=== PATIENT | male | born 1945 | race Caucasian/White ===

== ENCOUNTER 2024-06-24 10:52 | Outpatient (OUT) | payer MEDICARE, SELFPAY ==
[2024-06-24 11:46] LABS: Bilirubin Urine NEGATIVE (NEGATIVE); Blood Urine NEGATIVE (NEGATIVE); Clarity Urine CLOUDY (CLEAR); Color Urine LT. YELLOW (YELLOW); Glucose Urine UA NEGATIVE (NEGATIVE); Ketones Urine NEGATIVE (NEGATIVE); Leukocyte Esterase Urine TRACE (NEGATIVE); Nitrite Urine NEGATIVE (NEGATIVE); Protein Urine >=300 mg/dL (NEG/TRACE); Specific Gravity Urine >=1.030 (1.005-1.025)
[2024-06-24 12:07] LABS: Percent Iron Saturation 22.1 %
[2024-06-24 12:25] LABS: Albumin Level 3.3 g/dL (3.4-5.0); Anion Gap 10.8; BUN Creatinine Ratio 15.7; Calcium 9.2 mg/dL (8.5-10.1); Carbon Dioxide 28.4 mmol/L (21.0-32.0); Chloride 102 mmol/L (98-107); Estimated GFR (African America >60 (>=60 mL/min/1.73m^2); Estimated GFR (Non-African Ame 52 (>=60 mL/min/1.73m^2); Glucose 193 mg/dL (74-106); Magnesium 1.8 mg/dL (1.8-2.4); Phosphorus 3.9 mg/dL (2.6-4.7); Potassium 4.2 mmol/L (3.5-5.1); Sodium 137 mmol/L (136-145); Uric Acid 2.9 mg/dL (3.5-7.2)
[2024-06-25 02:09] LABS: Vitamin B12 >2000 pg/mL (232-1245)
[2024-06-25 09:12] LABS: PTH, Intact 49 pg/mL (15-65)
[2024-06-26 17:10] LABS: Immunoglobulin A, Qn, Serum 214 mg/dL (61-437); Immunoglobulin G, Qn, Serum 477 mg/dL (603-1613); Immunoglobulin M, Qn, Serum 81 mg/dL (15-143)
== END 2024-06-24 10:53 | disposition home or self-care (01) ==
LOC: LAB 10:57
PROVIDERS: PCP Family Medicine; Visit Provider Internal Medicine Nephrology
DX: D64.9 Anemia, unspecified (principal); I12.9 Hypertensive chronic kidney disease with stage 1 through stage 4 chronic kidney disease, or unspecified chronic kidney disease; R80.1 Persistent proteinuria, unspecified; N18.2 Chronic kidney disease, stage 2 (mild); E11.21 Type 2 diabetes mellitus with diabetic nephropathy
CPT/HCPCS: 36415; 80069; 81003; 82607; 82728; 82746; 83521; 83540; 83550; 83735; 83970; 84156; 84166; 84550; 86335

== ENCOUNTER 2024-06-26 08:30 | Outpatient (OUT) | payer MEDICARE, SELFPAY ==
--- NOTE | 2024-06-26 08:34 | US_ITS ---
The [address] [address] Patient Name: NATALIO BELLA MRN: [id number] date: 1945 Sex: M Assigned Patient Location: US Current Patient Location: LAB Accession/Order Number: [id number] Exam Date: 06/26/2024 09:11 Report Date: 06/26/2024 09:17 At the request of: MENDEZ FU Procedure: US renal BI BILATERAL RENAL AND BLADDER ULTRASOUND CLINICAL HISTORY: Hypertensive Renal Disease, Stage 2 Renal Disease, Proteinuria COMPARISON: None Estimation of renal size is approximately 10.1 cm on the right and 9.2 cm on the left. No shadowing calculi or hydronephrosis are identified. No renal mass lesions were imaged. There is no perinephric fluid. The urinary bladder is partially distended with a volume of 141 mL. The bladder wall appears thickened with a more focal lobulated component toward the trigone on the right. This area is approximately 2.8 x 1.1 x 1.5 cm in size. There is a prominent, heterogeneous prostate measuring 4.6 x 3.8 x 4.8 cm in size (volume 43 mL). US/US renal BI IMPRESSION: NO OBSTRUCTIVE UROPATHY. PROSTATE HYPERTROPHY. THICKENED URINARY BLADDER WALL WITH A FOCAL MASSLIKE AREA TOWARD THE BASE ON THE RIGHT. CLINICAL CORRELATION AND FOLLOW-UP ARE RECOMMENDED TO EXCLUDE ANY POSSIBILITY OF NEOPLASM. Impression dictated by: Alyse Beth M.D.06/26/2024 9:17 AM Dictation Location: [place] [address] Electronically authenticated by: [id number] Y Date: 06/26/2024 09:17
== END 2024-06-26 08:31 | disposition home or self-care (01) ==
LOC: US 08:30
PROVIDERS: PCP Family Medicine; Visit Provider Internal Medicine Nephrology
DX: D64.9 Anemia, unspecified (principal); I12.9 Hypertensive chronic kidney disease with stage 1 through stage 4 chronic kidney disease, or unspecified chronic kidney disease; R80.1 Persistent proteinuria, unspecified; N18.2 Chronic kidney disease, stage 2 (mild); E11.21 Type 2 diabetes mellitus with diabetic nephropathy; N40.0 Benign prostatic hyperplasia without lower urinary tract symptoms
CPT/HCPCS: 76775

== ENCOUNTER 2024-06-26 08:47 | Outpatient (REF) | payer MEDICARE, SELFPAY | END 2024-06-26 08:48 | disposition home or self-care (01) | LOC: LAB 08:47 | PROVIDERS: PCP Family Medicine; Visit Provider Internal Medicine Nephrology | DX: D64.9 Anemia, unspecified (principal); I12.9 Hypertensive chronic kidney disease with stage 1 through stage 4 chronic kidney disease, or unspecified chronic kidney disease; R80.1 Persistent proteinuria, unspecified; N18.2 Chronic kidney disease, stage 2 (mild); E11.21 Type 2 diabetes mellitus with diabetic nephropathy | CPT/HCPCS: 36415; 84156; 84166 ==

== ENCOUNTER 2024-09-09 09:02 | Outpatient (OUT) | payer MEDICARE, SELFPAY ==
--- OUTSIDE RECORDS SUMMARY | 2024-02-01 07:00 | XMS_ITS | Encounter Summary ---
Author Name [facility] [place] [facility] [place] [facility] [place] Address [address] [place] [address] Care Team Providers Care Microwave Oven Assembler Name Role Phone ADENIKE MILLER Primary Care Provider Unavail able Insurance Providers: All historical and current Section Date Range: From patient's date of to the date document was created. This section includes the names of all active insurance providers for the patient. Insurance Provider Type of Coverage Plan Name Start of Policy Coverage End of Policy Coverage Group Number Member ID Insurance Provider's Telephone Number Policy Elias's Name Patient's Relationship to Policy Elias [facility] (WNR) MEDICARE ADVANTAGE [facility] ([facility]) Apr 16, 2017 [id number] NATALIO RUSSELL PATIENT [facility] ([facility]) MEDICARE ADVANTAGE [facility] ([facility]) Nov 15, 2011 [id number] NATALIO RUSSELL PATIENT Selected Encounter This section includes the information on record at [place] for the Encounter. Date/Time Encounter Type Encounter Description Reason Provider Source Feb 01, 2024 11:00 AM BRIEF EMOTIONAL/BEHAV ASSMT AUDIOLOGY ICD-10-CM H90.A32 Mix cndct/snrl hear loss,uni,l ear w rstrcd hear cntra MACKENZIE Lopez IHYefri Encounter Template Text not used by [facility] Assessments - Encounter Diagnoses This section includes the primary and secondary diagnoses documented for the Encounter. Date/Time Primary/Secondary Diagnosis Diagnosis Name Provider Source Feb 01, 2024 12:05 PM PRIMARY Mix cndct/snrl hear loss,uni,l ear w rstrcd hear cntra side [place]ENZIE REDDY [facility] [place] of Treatment: Future Appointments (+ 6 months) and Future Tests (+/- 45 days) The Plan of Treatment section includes future care activities for the patient from all [place] treatmentfacilities. This section includes future appointments and future orders which are active, pending or scheduled. Future Appointments This section includes appointments that were scheduled to occur 6 months from the date of the Encounter, up to a maximum of 20 appointments. The data comes from all [place] treatment facilities. Appointment Date/Time Appointment Type Appointme nt Facility Name Feb 13, 2024 08:30 AM AMBULATORY - NONE [facility] Apr 03, 2024 10:30 AM AMBULATORY NONE [facility] Apr 22, 2024 10:00 AM AMBULATORY NONE [facility] Encounter Notes: All associated encounter notes This section contains the clinical notes associated to the Encounter. Date/Time Encounter Note(s) Provider Source Feb 01, 2024 11:38 AM AUDIOLOGY NOTE: LOCAL TITLE: AUDIOLOGY ASSESSMENT (T) STANDARD TITLE: AUDIOLOGY NOTE DATE OF NOTE: FEB 01, 2024@11:38 ENTRY DATE: FEB 01, 2024@11:38:28 AUTHOR: MACKENZIE REDDY EXP COSIGNER: URGENCY: STATUS: COMPLETED COMPLAINTS ASSOCIATED WITH HEARING OR EARS: CHIEF COMPLAINT: is new to audiology and being seen today for a hearing evaluation. Mr. Russell was last seen for a C&P exam in 2020. He has worn private- purchased hearing aids before in the past but does not have them today. He reports being interested in hearing aids through the [place]. 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 Left: Hearing sensitivity is mixed moderate sloping to profound at 250-8000 Hz. SPEECH RECOGNITION SCORES: Word list [place] CNC-50 presented through recorded material. Right ear 92% at 75 dBHL presented using recorded material Left ear 84% at 90 dBHL presented using recorded material, masked IMMITTANCE RESULTS: TYMPANOGRAM: Right Normal middle ear compliance and peak pressure. Left Flat tympanogram with no measureable pressure or compliance. ACOUSTIC REFLEXES: Ipsilateral Right Present at elevated sensation levels. Absent at presentation levels. Left Could not obtain a seal for testing. PREVIOUS TEST RESULTS: Right: Results are stable with those obtained in 202. Left: Pure tone thresholds have declined compared with those in 202 but this is likely due to the cerumen buildup in the left ear. RECOMMENDATIONS: Hearing Aid(s): Ordered binaural hearing aids - ([place]) Phonak AUDEO L90-RL SHARMIN with size 3xM receivers and small vented domes - No Bluetooth needed. - declined VVC, prefers in-person appointment. Per [place] preference, hearing aid fitting: Scheduled for [facility] audiology unit RTC for [facility] NURSE to have ears lavaged. [place] and his were given Debrox and will start using immediately. Consider pure tone recheck for left ear when returns for fitting. *Annual C-SSRS completed during today's appointment. /annette/ MACKENZIE REDDY CAFE ASSOCIATE Signed: 02/01/2024 12:06 MACKENZIE REDDY [facility]
--- OUTSIDE RECORDS SUMMARY | 2024-02-13 04:30 | XMS_ITS | Encounter Summary ---
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 Date/Time Encounter Type Encounter Description Reason Provider Source Feb 13, 2024 08:30 AM OFF/OP EST AUGUST X REQ PHY/QHP PRIMARY CARE/MEDICINE ICD-10-CM Z23 Encounter for immunization VIOLETTA BARFIELD IHYefri Encounter Template Text not used by VA Assessments - Encounter Diagnoses This section includes the primary and secondary diagnoses documented for the Encounter. Date/Time Primary/Secondary Diagnosis Diagnosis Name Provider Source Feb 15, 2024 02:56 PM PRIMARY Encounter for immunization VIOLETTA BARFIELD [facility] Plan of Treatment: Future Appointments (+ 6 months) and Future Tests (+/- 45 days) The Plan of Treatment section includes [facility] care [facility] the [facility] [place] [facility] This section includes future appointments and future orders which are active, pending or scheduled. Future Appointments This section includes appointments that were scheduled to occur 6 months from the date of the Encounter, up to a maximum of 20 appointments. The data comes from all [place] treatment facilities. Appointment Date/Time Appointment Type Appointme nt Facility Name Apr 03, 2024 10:30 AM AMBULATORY - NONE [facility] Apr 22, 2024 10:00 AM AMBULATORY - NONE [facility] Immunizations: All administered on the encounter date This section contains immunizations associated to the Encounter. Immunization Series Date Issued Administered By Site Reaction Lot Number [id number] Code Drug Hospital Medical Assistant Comment(s) Source INFLUENZA, HIGH-DOSE, TRIVALENT, PF Feb 13, 2024 VIOLETTA BARFIELD LEFT DELTO ID [id number] 135 SANOFI PASTEUR ADMINISTERE D AT [place], [place] [facility] Encounter Notes: All associated encounter notes This section contains the clinical notes associated to the Encounter. Date/Time Encounter Note(s) Provider Source Feb 13, 2024 09:15 AM PRIMARY CARE NURSI NG NOTE: LOCAL TITLE: OUTPATIENT NURSING TRIAGE NOTE (T) STANDARD TITLE: PRIMARY CARE NURSING NOTE DATE OF NOTE: FEB 13, 2024@09:15 ENTRY DATE: FEB 13, 2024@09:15:36 AUTHOR: SKYE BARFIELDY Rene EXP COSIGNER: URGENCY: STATUS: COMPLETED Per 02/01/2024 Audiology Assessment Note: PREVIOUS TEST RESULTS: Right: Results are stable with those obtained in 2020. Left: Pure tone thresholds have declined compared with those in 2020 but this is likely due to the cerumen buildup in the left ear. RECOMMENDATIONS: Hearing Aid(s): Ordered binaural hearing aids - ([place]) Phonak AUDEO L90-RL SHARMIN with size 3xM receivers and small vented domes - No Bluetooth needed. - [place] declined VVC, prefers in-person appointment. Per preference, hearing aid fitting: Scheduled for [facility] unit RTC for [facility] NURSE to have ears lavaged. and his were given Debrox and will start using immediately. Consider pure tone recheck for left ear when returns for fitting. Patient in clinic for ear lavage- reports using Debrox daily- I can hear better after using the drops - left ear canal free of cerumen- ear drum visible. Instructed patient to schedule a recheck pure tone appt with Audiology- patient verbally agreed. /annette/ VIOLETTA BARFIELD REGISTERED NURSE Signed: 02/13/2024 09:28 Receipt Acknowledged By: 02/13/2024 12:08 /annette/ MACKENZIE REDDY LANDSCAPE AND YARDWORK LABORER VIOLETTA BARFIELD [facility] Feb 13, 2024 09:11 AM NURSING MEDICATION MGT NOTE: LOCAL TITLE: MEDICATION ADMINISTRATION NOTE (T) STANDARD TITLE: NURSING MEDICATION MGT NOTE DATE OF NOTE: FEB 13, 2024@09:11 ENTRY DATE: FEB 13, 2024@09:11:32 AUTHOR: VIOLETTA BARFIELD EXP COSIGNER: URGENCY: STATUS: COMPLETED Influenza Vaccine Influenza, High-Dose, Trivalent, Preservative Free (Fluzone-Syringe) Administered: INFLUENZA, HIGH-DOSE, TRIVALENT, PF Date Administered: Feb 13, 2024 08:30 Hospital Medical Assistant: SANOFI PASTEUR Lot: [id number] Exp Date: Oct 13, 2024 [facility]: [phone] Admin Route/Site: INTRAMUSCULAR/LEFT DELTOID Dosage: 0.5mL Vaccine Information Statement(s): INFLUENZA(FLU) VACC(INACTIVATED OR RECOMBINANT)VIS Nov 19, 2020 (LITHUANIAN) Order By: Policy Administered By: Violteta Barfield The Influenza Vaccine Information Statement (VIS) was reviewed with the patient/caregiver which lists the benefits and risks of the vaccine and the risks of not receiving the Influenza vaccine. The patient/caregiver denied any prior severe reaction to this vaccine or its components or a severe allergic reaction, such as anaphylaxis, to any vaccine or any injectable therapy. The patient/caregiver gave verbal consent to receive the vaccine. /annette/ VIOLETTA BARFIELD REGISTERED NURSE Signed: 02/13/2024 09:14 VIOLETTA BARFIELD [facility]
--- OUTSIDE RECORDS SUMMARY | 2024-04-22 06:00 | XMS_ITS | Encounter Summary ---
Author Name [facility] [place] Address [address] [place] [address] Care Team Providers Care Manager Name Role Phone ADENIKE MILLER Primary Care [...] Elias's Name Patient's Relationship to Policy Elias [facility] (WNR) MEDICARE ADVANTAGE [facility] ([facility]) Apr 16, 2017 [id number] NATALIO BELLA PATIENT [facility] (WNR) MEDICARE ADVANTAGE [facility] ([facility]) Nov 15, 2011 [id number] NATALIO BELLA PATIENT Selected Encounter This section includes the information on record at [place] for the Encounter. Date/Time Encounter Type Encounter Description Reason Pro vider Source Apr 22, 2024 10:00 AM Outpatient Encounter AUDIOLOGY IHE Encounter Template Text not used by [facility] Encounter Notes: All associated encounter notes This section contains the clinical notes associated to the Encounter. Date/Time Encounter Note(s) Provider Source Apr 22, 2024 11:34 AM NO SHOW NOTE: LOCAL TITLE: NO SHOW (T)// NO SHOW/CANCELLATION NOTE STANDARD TITLE: NO SHOW NOTE DATE OF NOTE: APR 22, 2024@11:34 ENTRY DATE: APR 22, 2024@11:34:55 AUTHOR: MILA WINSTON EXP COSIGNER: URGENCY: STATUS: COMPLETED did not keep scheduled appointment. /annette/ MILA WINSTON RUBBER WASHER Signed: 04/22/2024 11:35 [facility]
--- OUTSIDE RECORDS SUMMARY | 2024-08-13 02:42 | XMS_ITS | Continuity of Care Document ---
Author Name [facility] Care Team Providers Care Video Editing Internship Name Role Phone [facility] Unavailable Unavailable Problems Combined list of problems from Department of Defense and [facility] Affairs facilities. It does not include entries that were removed or entered in error. Problem Status Onset Date Problem Type Date of Resolution Comments Source Alcohol dependence Active Condition [facility] Astigmatism, regular (ICD-9-CM 367.21) Active Condition [facility] Asymmetrical sensorineural hearing loss (SNOMED CT 396867845) Active Condition [facility] Bilateral age-related nuclear cataracts (SNOMED CT 904989445221797) Active Condition [facility] Bilateral senile combined form cataracts of eyes Active Condition [facility] Diabetes mellitus Active Condition [facility] Disability Examination Active Condition [facility] Epiretinal membrane (SNOMED CT 706360155) Active Condition [facility] Essential hypertension Active Condition [facility] Fitting and Adjustment of Hearing Aid Active Condition [facility] Hyperglycemia Active Condition [facility] Hyperlipidemia Active Condition [facility] Myopia (SNOMED CT 27611736) Active Condition [facility] Peripheral arterial occlusive disease Active Condition [facility] Presbyopia (SNOMED CT 32590271) Active Condition [facility] Raised prostate specific antigen Active Condition [facility] Retinal scar Active Condition [facility] Tear film insufficiency * (ICD-9-CM 375.15) Active Condition [facility] Tobacco dependence, continuous Active Condition [facility] Diagnosis: ICD-10-CM Z46.1 Encounter for fitting and adjustment of hearing aid Active Diagnosis [facility] Diagnosis: ICD-10-CM Z23 Encounter for immunization Active Diagnosis [facility] Diagnosis: ICD-10-CM H90.A32 Mix cndct/snrl hear loss,uni,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 facilities.Medications provided include 1) outpatient medications from the last 15 months, and 2) patient-reported medications. Medication Details Route Status Patient Instructions Prescription Expires Prescription Number Last Dispense Date Ordering Provider Order Date Order Qty Source AMLODIPINE BESYLATE 10MG TAB TAKE ONE TABLET BY MOUTH EVERY DAY ORAL ACTIVE ADENIKE HAHN MD 2015 [facility] ASPIRIN 81MG TAB,EC ORAL ACTIVE ADENIKE HAHN MD 2015 [facility] BISOPROLOL FUMARATE 10MG TAB TAKE ONE-HALF TABLET BY MOUTH EVERY DAY ORAL ACTIVE ADENIKE HAHN MD 2018 [facility] HYDROCHLORO THIAZIDE 12.5MG/HONORIO NOPRIL 20MG TAB TAKE ONE TABLET BY MOUTH EVERY MORNING ORAL ACTIVE ADENIKE HAHN MD 2018 [facility] METFORMIN HCL 500MG TAB TAKE ONE TABLET BY MOUTH TWICE DAILY, WITH MEALS ORAL ACTIVE ADENIKE HAHN MD 2016 [facility] MULTIVITAMI NS W/MINERALS TAB TAKE ONE TABLET BY MOUTH EVERY DAY ORAL ACTIVE ADENIKE HAHN MD 2014 [facility] ROSUVASTATI N CA 20MG TAB TAKE ONE-HALF TABLET BY MOUTH EVERY DAY ORAL ACTIVE ADENIKE HAHN MD 2014 [facility] Immunizations Combined list of available immunizations from the Department of [facility] and [facility] facilities. Immunization Series Date Given Administered By Site Reaction Lot Number CVX Code Drug It Support Specialist Status Comments Source INFLUENZA, HIGH-DOSE, TRIVALENT, PF 2023 FREDERICK BARFIELD LEFT DELTO ID [id number] 135 complet ed [place]MINISTE [place], TOBIN HAWK TD (ADULT), 5 LF TETANUS TOXOID, PRESERVATIVE FREE, ADSORBED 3 2023 113 complet ed HISTORICA L INFORMATI ON - FROM OTHER REGISTRY, [facility] INFLUENZA, HIGH-DOSE, QUADRIVALENT, PF 8 2022 197 complet ed HISTORICA L INFORMATI ON - FROM OTHER REGISTRY, [facility] INFLUENZA, UNSPECIFIED FORMULATION 2022 88 complet ed HISTORICA L INFORMATI ON - FROM PATIENT'S WRITTEN RECORD, [facility] INFLUENZA, HIGH-DOSE, QUADRIVALENT, PF 7 2021 197 complet ed HISTORICA L INFORMATI ON - FROM OTHER REGISTRY, [facility] COVID-19 (MODERNA), MRNA, LNP-S, PF, 100 MCG/0.5ML DOSE OR 50 MCG/0.25ML DOSE 3 2020 207 complet ed HISTORICA L INFORMATI ON - FROM OTHER REGISTRY, [facility] INFLUENZA, ADJUVANTED, QUADRIVALENT, PF 6 2020 205 complet ed HISTORICA L INFORMATI ON - FROM OTHER REGISTRY, [facility] TDAP 2 2020 115 complet ed HISTORICA L INFORMATI ON - FROM OTHER REGISTRY, [facility] COVID-19 (MODERNA), MRNA, LNP-S, PF, 100 MCG/0.5ML DOSE OR 50 MCG/0.25ML DOSE 2 2020 207 complet ed HISTORICA L INFORMATI ON - FROM OTHER REGISTRY, [facility] COVID-19 (MODERNA), MRNA, LNP-S, PF, 100 MCG/0.5ML DOSE OR 50 MCG/0.25ML DOSE 1 2020 207 complet ed HISTORICA L INFORMATI ON - FROM OTHER REGISTRY, [facility] INFLUENZA, UNSPECIFIED FORMULATION 2019 88 complet ed [facility] INFLUENZA, SPLIT VIRUS, QUADRIVALENT, PF 5 2019 150 complet ed HISTORICA L INFORMATI ON - FROM OTHER REGISTRY, [facility] INFLUENZA, ADJUVANTED, TRIVALENT, PF 4 2018 168 complet ed HISTORICA L INFORMATI ON - FROM OTHER REGISTRY, [facility] ZOSTER RECOMBINANT 2 2018 187 complet ed HISTORICA L INFORMATI ON - FROM OTHER REGISTRY, [facility] INFLUENZA, SPLIT VIRUS, TRIVALENT, PF 2017 140 complet ed HISTORICA L INFORMATI ON - FROM OTHER REGISTRY, [facility] INFLUENZA (HISTORICAL) 2017 88 complet ed [facility] ZOSTER RECOMBINANT 1 2017 187 complet ed HISTORICA L INFORMATI ON - FROM OTHER REGISTRY, [facility] INFLUENZA, SPLIT VIRUS, QUADRIVALENT, PF 3 2017 150 complet ed HISTORICA L INFORMATI ON - FROM OTHER REGISTRY, [facility] INFLUENZA, SPLIT VIRUS, TRIVALENT, PF 2016 140 complet ed HISTORICA L INFORMATI ON - FROM OTHER REGISTRY, [facility] INFLUENZA (HISTORICAL) 2016 88 complet ed [facility] INFLUENZA, SPLIT VIRUS, TRIVALENT, PF 2 2016 140 complet ed HISTORICA L INFORMATI ON - FROM OTHER REGISTRY, [facility] TDAP 1 2016 115 complet ed HISTORICA L INFORMATI ON - FROM OTHER REGISTRY, [facility] INFLUENZA, SPLIT VIRUS, QUADRIVALENT, PF 1 2015 150 complet ed HISTORICA L INFORMATI ON - FROM OTHER REGISTRY, [facility] PNEUMOCOCCAL POLYSACCHARID E PPV23 2015 33 complet ed [employer] #[id number] Ex:2016 [facility] PNEUMOCOCCAL, UNSPECIFIED FORMULATION 2015 109 complet ed [facility] PNEUMOCOCCAL CONJUGATE PCV 13 1 2015 133 complet ed HISTORICA L INFORMATI ON - FROM OTHER REGISTRY, [facility] PNEUMOCOCCAL CONJUGATE PCV 13 2014 133 complet ed [facility] INFLUENZA (HISTORICAL) 2013 88 complet ed [id number] Ex:2014 [facility] FLU,3 YRS (HISTORICAL) 2011 88 complet ed [facility] FLU,3 YRS (HISTORICAL) 2010 88 complet ed [facility] ZOSTER (varicella zoster) (HISTORICAL) 2010 complet ed [facility] PNEUMOCOCCAL, UNSPECIFIED FORMULATION 2010 109 complet ed [employer] #[id number] [facility] TDAP 2010 115 complet ed [employer] #[id number] [facility] FLU,3 YRS (HISTORICAL) 2009 88 complet ed [facility] Encounters Combined list of: 1) Encounters from Department of Veterans Affairs facilities going backup to the last 18 months, not all VA inpatient encounters are included; 2) Encounters from the Department of Defense facilities going backup to 280 months. Location Location Details Encounter Type Encounter Number Reason For Visit Attending Provider ADM Date DC Date Status Disposition Source [place] [facility] [place] [id number] Diagnos is: ICD-10- CM H52.223 Regular astigma dougrachnasalazarLILY WAHLEL 05/21 [facility] Outpatient Encounter [id number] LATOYA HUTCHINSON 06/13 [facility] Outpatient Encounter [id number] 10/24 [facility] [place] En[place] [id number] LAVONNE REDDY 01/31 [facility] BRIEF EMOTIONAL/ BEHAV ASSMT [id number] Diagnos is: ICD-10- CM H90.A32 Mix cndct/s nrl hear loss,un i,l ear w rstrcd hear cntra side LAVONNE REDDY 01/31 [facility] OFF/OP EST AUGUST X REQ PHY/QHP [id number] Diagnos is: ICD-10- CM Z23 [facility] Outpatient Encounter [id number] 03/12 [facility] CONFORMITY EVALUATION [id number] Diagnos is: ICD-10- CM Z46.1 Encount er for fitting and adjustm ent of hearing aid LAVONNE REDDY 04/03 [facility] Outpatient Encounter [id number] 04/22 [facility] Outpatient Encounter [id number] 04/22 COLEIZZY TIRADO [facility] Outpatient Encounter [id number] 07/02 LU TIRADO [facility] Outpatient Encounter [id number] 07/14 [facility] Social History Combined list of available smoking, tobacco, and other social history from Department of Defense and Veterans Affairs facilities. Social History Type Response Date Comment Sourc e Tobacco smoking status NHIS VA-TOBACCO USER EVERY DAY 07/03/2018 [facility] History of tobacco use CO-TOBACCO USE WI 30 MIN OF WAKEUP 07/03/2018 [facility] History of tobacco use CURRENT TOBACCO USER 01/01/2018 [facility] History of tobacco use CURRENT TOBACCO USER 06/27/2017 [facility] History of tobacco use CURRENT TOBACCO USER 12/29/2016 [facility] History of tobacco use CURRENT TOBACCO USER 12/30/2015 [facility] History of tobacco use CURRENT TOBACCO USER 12/29/2014 [facility] History of tobacco use TOBACCO SCREEN TACTICS WORKBOOK 12/29/2013 [facility] History of tobacco use CURRENT TOBACCO USER 11/22/2012 [facility] History of tobacco use CURRENT TOBACCO USER 12/07/2011 [facility] History of tobacco use SMOKING CESSATION MEDICATION 10/07/2010 [facility]
--- OUTSIDE RECORDS SUMMARY | 2024-09-09 09:09 | XMS_ITS | Encounter Summary ---
[id number] [address] [place] [address] Care Team Providers Care Roll Plugger Machine Operator Name Role Phone Chary Calloway MD Primary Care Provider [phone] Encounter Details Date Type Department Care Team (Late st Contact Info) Description 10/28/2021 Abstract [facility] [address] [place] [address] External, Scanning Provider Social History Tobacco Use Types Packs/Day Years Used Date Smoking Tobacco: Every Day Cigarettes Cigars Smokeless Tobacco: Never Comments:and cigars occassio nal Alcohol Use Standard Drinks/Week Comments Yes 0 (1 standard drink = 0.6 oz pur e alcohol) weekly Social Connection and Isolat ion Panel [NHANES] Answer Date Recorded In a typical week, how many times do you talk on the phone with family, friends, or neighbors? More than three times a week 11/01/2020 How often do you get togethe r with friends or relatives? Twice a week 11/01/2020 How often do you attend chur ch or denominational services? Never 11/01/2020 Do you belong to any clubs o r organizations such as methodist groups, unions, fraternal or athletic groups, or school groups? No 11/01/2020 How often do you attend meet ings of the clubs or organizations you belong to? Never 11/01/2020 Are you , , di vorced, , never , or living with a partner? 11/01/2020 Overall Financial Resource Strain (CARDIA) Answe r Date Recorded How hard is it for you to pa y for the very basics like food, housing, medical care, and heating? Not hard at all 11/01/2020 PHQ-2 Answer Date Recorded Total Score 0 04/24/2019 Exercise Vital Sign Answer Date Recorde d On average, how many days pe r week do you engage in moderate to strenuous exercise (like a brisk walk)? 0 days 11/01/2020 On average, how many minutes do you engage in exercise at this level? 0 min 11/01/2020 PRAPARE - Transportation Answer Date Re corded In the past 12 months, has l ack of transportation kept you from medical appointments or from getting medications? No 10/14 In the past 12 months, has l ack of transportation kept you from meetings, work, or from getting things needed for daily living? No 11/01/2020 Childcare Answer Date Recorded Do problems getting child ca re make it difficult for you to work or study? No 11/01/2020 Employment Answer Date Recorded Do you need help finding a [employer] career center and/or a training program? No 11/01/2020 Purpose - Life Answer Date Recorded Purpose and direction in life Unknown Sex and Gender Information Value Date Recorded Sex Assigned at Not on file Legal Sex Male 11:29 AM EDT Gender Identity Male 04/23/2024 2:52 PM EST Sexual Orientation Straight 04/23/2024 2: 52 PM EST COVID-19 Exposure Response Date Recorded In the last month, have you been in contact with someone who was confirmed or suspected to have Coronavirus / COVID-19? No / Unsure 10/25/2021 3:14 PM EDT documented as of this encounter Plan of Treatment Upcoming Encounters Date Type Department Care Team (Latest Contact Info) Description 09/09/2024 12:00 PM EDT Office Visit [facility] [address] [place] [address] [place] [address] Roe Harrison MD [facility] [place] [address] 09/18/2024 9:30 AM EDT Hospital Encounter [facility] - Cardiac Cath [address] [place] [address] Aron Ruvalcaba MD [address] [place] [address] Renal artery stenosis 09/18/2024 9:30 AM EDT - 09/18/2024 10:30 AM EDT Surgery [facility] - Cardiac Cath [address] [place] [address] Aron Ruvalcaba MD [address] [place] [address] Vascular Invasive- bilateral renal artery angiogram with possible intervention 09/30/2024 9:00 AM EDT Office Visit [facility] [address] [place] [address] Mona Carroll, PAIsraelC [address] [place] [address] 2024 10:00 AM EDT Appointment [facility] - CT Imaging [address] [place] [phone] Phillip Flores MD [address] [place] [address] 10/31/2024 3:15 PM EDT Office Visit [facility] - Medical Oncology [facility] [place] [phone] Phillip Flores MD [address] [place] [address] 02/17/2025 1:15 PM EST Office Visit [facility] [address] [place] [address] [place] [address] [place] [phone] Roe Harrison MD [facility] [place] [address] documented as of this encounter Procedures Procedure Name Priority Date/Time Associated Diagnosis Comments CBC WITH AUTO DIFFERENTIAL Routine 09/13/2021 documented in this encounter Results * CBC auto differential (09/13/2021) 09/13/2021 us Scanning Provider External LAB BLOOD ORDERABLES Final Result MANUALLY TRANSCRIBED RESULTS documented in this encounter Visit Diagnoses Not on filedocumented in this encounter Additional Health Concerns Infection Onset Date Last Indicated Resolved Time Enteric Rule-Out 04/24/2024 04/24/2024 04/25/2024 2:05 PM EST Assessment Noted Time PHQ-9 Depression Total Score: 0 04/24/19 20 8:56 AM EST documented as of this encounter Care Teams Roll Plugger Machine Operator Relationship Specialty Start Date End Date Chary Calloway MD [address] [place] [address] PCP - General Family Medicine 04/10/24 documented as of this encounter
--- OUTSIDE RECORDS SUMMARY | 2024-09-09 09:09 | XMS_ITS | Encounter Summary ---
Author Organization [facility] Address [address] [place] [address] Care Team Providers Care Americanization Teacher Name Role Phone Chary Calloway MD Unavailable Chary Calloway MD Primary Care Provider [phone] Encounter Details Date Type Department Care Team (Late st Contact Info) Description 08/28/2024 Results Follow-Up [facility] [address] [facility] [address] [place] [address] Ruby Arteaga MD [address] [facility] [address] [place] [address] Social History Tobacco Use Types Packs/Day Years Used Date Smoking Tobacco: Former Cigarettes 1 965 - 02/2023 Smokeless Tobacco: Never Comments:1-9 cigs/ day Alcohol Use Standard Drinks/Week Comments Yes 0 (1 standard drink = 0.6 oz pure alcohol) caffeine intake : 3-4 cups per day ; coffee PHQ-2 Answer Date Recorded Patient Health Questionnaire-2 Score 0 07/14/2024 Sex and Gender Information Value Date Recorded Sex Assigned at Not on file Legal Sex Male 6:48 PM EDT Gender Identity Not on file Sexual Orientation Not on file documented as of this encounter Miscellaneous Notes * Telephone Encounter - Edda Khan MA - 08/28/2024 3:50 PM EDT Discussed pathology and procedure with patient and . Scheduled patient for procedure. Literature and appointment reminder mailed to patient. documented in this encounter Plan of Treatment Upcoming Encounters Date Type Department Care Team (Late st Contact Info) Description 09/17/2024 11:00 AM EDT Office Visit [facility] [address] [place] [phone] Jake Lainez MD [address] [facility] [address] [address] 10/03/2024 11:00 AM EDT Office Visit [facility] [address] [place] [address] Ruby Arteaga MD [address] [place] [address] 11/12/2024 10:40 AM EDT Office Visit [facility] [address] [place] [phone] Chary Calloway MD [address] [place] [address] 08/26/2025 1:05 PM EDT Office Visit [facility] [address] [place] [address] Ruby Arteaga MD [address] [place] [address] documented as of this encounter Goals Goal Patient Goal Type Associated Problems Recent Progress Patient-Stated? Author Help patient manage antidepressant medication Care Plan Patient on antidepressant monitoring plan No Chary Calloway MD Baseline PHQ-9 Care Plan Baseline PHQ-9 No Chary Calloway MD documented as of this encounter Visit Diagnoses Not on filedocumented in this encounter Additional Health Concerns Active Problems Noted Date Diagnosed Date Patient on antidepressant monitoring plan 2022 Baseline PHQ-9 01/03/2023 Assessment Noted Time PHQ-9 Depression Total Score: 0 04/19/19 24 1:00 PM EST documented as of this encounter Care Teams Americanization Teacher Relationship Specialty Start Date End Date Chary Calloway MD [address] [place], [place] [phone] PCP - [employer] 04/16/17 Chary Calloway MD [address] [place] [address] PCP - General Family Medicine 09/04/22 documented as of this encounter
--- OUTSIDE RECORDS SUMMARY | 2024-09-09 09:09 | XMS_ITS | Clinical Summary ---
Author Organization WebTV tem Address [id number] [address] 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 Active ferrous sulfate 325 (65 FE) mg tablet Take 1 tablet (325 mg total) by mouth daily with breakfast. Active cyanocobalamin, vitamin B-12, 2,500 mcg tablet Take 2,500 mcg by mouth in the morning. Active pantoprazole (PROTONIX) 40 mg EC tablet Take 1 tablet (40 mg total) by mouth in the morning. Active rOPINIRole (REQUIP) 0.25 mg tablet Take 1 tablet (0.25 mg total) by mouth in the morning and 1 tablet (0.25 mg total) at noon and 1 tablet (0.25 mg total) before bedtime. Active hydrALAZINE (APRESOLINE) 25 mg tablet Take 1 tablet (25 mg total) by mouth 3 (three) times a day. 90 tablet 3 4 Active buPROPion XL (WELLBUTRIN XL) 300 mg 24 hr tablet Take 1 tablet (300 mg total) by mouth in the morning. Active metoprolol succinate XL (TOPROL XL) 100 mg 24 hr tablet Take 1 tablet (100 mg total) by mouth in the morning. 4 Active clopidogreL (PLAVIX) 75 mg tablet Take 1 tablet (75 mg total) by mouth in the morning. Do not take until given clearance by Neurosurgery, gastroenterolo gy. 5 Active aspirin 81 mg Take 1 tablet (81 mg total) by mouth in the morning. Active Active Problems Problem Noted Date Diagnosed Date Encounter for preadmission testing 05/19/2024 Cecum mass 05/19/2024 Schwannoma of colon 05/16/2024 GI bleed 04/24/2024 Angiectasia of gastrointestinal tract 04/24/2024 History of colon polyps 04/24/2024 Intussusception 04/24/2024 Acute cystitis without hematuria 04/23/2024 Iron deficiency anemia 04/23/2024 PAD (peripheral artery disease) 04/23/2024 Gastroesophageal reflux disease without esophagi tis 04/23/2024 Benign prostatic hyperplasia with lower urinary tract symptoms 04/23/2024 Type 2 diabetes mellitus wit h diabetic chronic kidney disease 04/23/2024 Primary hypertension 04/23/2024 Mixed hyperlipidemia 04/23/2024 Heavy tobacco smoker 04/23/2024 Iron deficiency anemia due to chronic blood loss 04/10/2024 Normocytic anemia 03/27/2024 Renal artery stenosis 06/12/2023 Stage 3a chronic kidney disease 05/15/2023 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 He agrees to a CT urogram and cystoscopy for further evaluation. Urine sent for fish/cytology 07/25/22: CT urogram with bilateral dilated collecting system secondary to outlet obstruction, BPH. Cysto with BPH. Finasteride started Assessment & Plan (06/21/2022 12:01 PM EST): He feels he will be able to tolerate the cystoscopy under local anesthesia. I will call him with the results of the CT urogram. We will not call with the fish/cytology results unless positive Urinary retention 12/28/2021 Overview (02/19/2024): 12/28/21: Postop urinary retention which has resolved. 07/06: finasteride started 02/19/24: controlled symptoms with finasterde. Malodorous urine. Urine sent for culture. Rx for macrobid Bowel obstruction 10/31/2020 Antineutrophil cytoplasmic antibody (ANCA) posit dima 05/26/2019 History of orchiectomy, unilateral 04/24/2019 Non-specific granulomatous orchitis 04/24/2019 Scrotal hematoma 02/11/2019 Overview (01/18/2021): S/p scrotal exploration/evacuation of hematoma 03/25/2019. Pathology benign 11/30/20: Left scrotal hematoma after traumatic laceration. Plan recheck 2 weeks to remove suture 12/14/20: Sutures removed 01/18/21 - healed Assessment & Plan (04/02/2019 11:21 AM EST): Drain removed today. He will follow-up as scheduled in May. I asked him to call sooner if any problems. 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 I believe this is an epididymal cyst. Scrotal ultrasound ordered for confirmation. 11/13/18:: Ultrasound demonstrating: Right testicle shows appropriate blood flow and size but it is heterogeneous with a 12 mm hypoechoic lesion superiorly a 10 mm lesion within the mid portion and a 7 mm lesion inferiorly. Findings reviewed with the patient phone today. Recommendation was for right radical orchiectomy. I explained to him that it is possible this is not a tumor but given that he has intratesticular masses that are new would recommend proceeding to make a diagnosis. No known history of lymphoma or leukemia 11/26/18: AFP, LDH, beta HCG drawn. Right radical orchiectomy 12/03/18: Pathology: Necrotizing granulomatous process with negative AFB and fungal stains 12/17/18: Path reviewed. Referral given to infectious disease. If negative workup plan rheumatology consult 01/22/19: ID work-up negative. Will refer to rheumatology. Right hemiscrotum is firm. Will check US 02/11/19: Right scrotal hematoma. Symptomatic. Options discussed. He would like intervention. Plan for scrotal exploration with evacuation hematoma. Will place drain postop to decrease odds of recurrence. The risks and benefits as outlined in the consent were discussed. All relevant drawings were reviewed. All questions were answered. The patient expressed understanding and wished to proceed 03/25/19: Evacuation of scrotal hematoma Bilateral carotid artery stenosis 03/28/2018 Penile lump 09/04/2017 Overview (11/12/2018): Penile lump palpable September 04, 2017 which was present for the last 4 or 5 months. This is in the subcutaneous tissue. He does have what feels like Peyronie he has plaque in the dorsum at the base just below this. ? Calcified vein or lymphatic. Plan u/s to eval further 10/01: U/S demonstrates cystic structure without blood flow. I suspect this is an obstructed lymphatic. No concern for underlying malignancy given its stability over 6 months and lack of internal blood flow. Plan to monitor for now. 05/14/18: Palpable lump nearly resolved. 11/12/18: Resolved on exam Elevated PSA 03/07/2016 Overview (02/19/2024): Prostate ultrasound with biopsy February 2014 Two biopsy showing high-grade PIN History of fluctuating PSA as high as 11.3 in the past 3 germaine MRI February 2016 with PI rads 2 lesion (PSA 7.34) 05/14/18: PSA stable at 6.24 on follow-up. 11/12/18: PSA stable 6.28, normal exam. Plan to continue to monitor 05/20/19: PSA stably elevated 6.96. Plan to follow 11/18/19: Plan to check psa today. If remains stable will check annually given the stability 11/23/20: PSA 27 with normal exam. Was recently hospitalized. Plan to recheck his PSA in a month. If persistently elevated will pursue additional workup 01/18/21: PSA 4.74. Plan to recheck 1 year 06/07: PSA 6.34. Normal exam. Explained to him that he has already had a workup including MRI and biopsy. His PSA has fluctuated quite a bit however his PSA remains about the same as it has been over the past few years. Given this and the prior workup would recommend following only for now. Recheck 6 months 01/31/22: Last psa in August stable at 6.45. Similar to prior. Most recent 8.06. rec recheck 6 months 02/19/24: PSA pending. Adhesive capsulitis of shoulder 01/22/2007 Overview (01/14/2019): Overview: lt. shoulder Resolved Problems Problem Noted Date Diagnosed Date Resolved Date Type 2 diabetes mellitus with complication 01/02/2019 08/26/2020 Atherosclerosis of [place]hal[place] ar radha of both lower extremities with intermittent claudication 03/28/2018 08/26/2020 Carotid disease, bilateral 05/11/2016 0 08/26/2020 Chronic mesenteric ischemia 06/25/2013 08/26/2020 Atherosclerosis of [place] ar radha of extremity with intermittent claudication 08/14/2006 Encounters Date Type Department Care Team Description 08/29/2024 Telephone [facility] [address] [place] [address] [place] [address] Roe Harrison MD 08/22/2024 Telephone [facility] [address] [place] [address] Nicky Card RN renal artery angiogram 08/21/2024 9:00 AM EDT - 08/21/2024 10:00 AM EDT Surgery [facility] - Cardiac Cath [address] [place] [address] Aron Ruvalcaba MD Vascular Invasive 08/21/2024 7:33 AM EDT - 08/21/2024 10:23 AM EDT Hospital Encounter [facility] - CVU-IVU [address] [place] [address] Aron Ruvalcaba MD Renal artery stenosis; Type 2 diabetes mellitus with diabetic chronic kidney disease, unspecified CKD stage, unspecified whether senior care insulin use ([employer] [facility]) Discharge Disposition: Home 08/21/2024 Travel 08/20/2024 10:27 AM EDT - 08/20/2024 11:59 PM EDT Hospital Encounter [facility] - Radiology [address] [place] [phone] Dysphagia, unspecified type Discharge Disposition: Home 08/20/2024 Travel 07/17/2024 Telephone [facility] [address] [place] [address] Nicky Card RN renal artery angiogram 07/15/2024 9:48 AM EDT - 07/15/2024 11:59 PM EDT Hospital Encounter [facility] - Vascular [address] [place] [address] Aron Ruvalcaba MD Renal artery stenosis Discharge Disposition: Home 07/15/2024 Travel 07/01/2024 Telephone [facility] [address] [place] [address] Liliane Montez CMA from Last 3 Months Immunizations Immunization Administration Dates Next Due Influenza (IM) Preservative Free 01/18/2018,09/2016,01/12/2017 Influenza Vaccine, Quadrivalent, Adjuvanted 11/15 Influenza, Injectable, quadrivalent (PF) 020,12/10/2017,01/12/2016 Influenza, Trivalent, Adjuvanted 01/03/2019 Influenza, Unspecified 01/14/2006 Pneumococcal Conjugate 13-Valent 12/30/2015 Tdap 05/28/2024,11/27/2020,09/16/2016 Zoster Vaccine Recombinant 04/30/2018,12/28/2017 Family History Medical History Relation Comments Heart disease Father Heart attack Mother Relation Status Comments Father Mother Social History Tobacco Use Types Packs/Day Years Used Date Smoking Tobacco: Former Cigarettes 1 60 Q uit: 02/2023 Smokeless Tobacco: Never Tobacco Cessation:Counseling Given: Not Answered Comments:and cigars occassional Alcohol Use Standard Drinks/Week Comments Yes 1 (1 standard drink = 0.6 oz pur e alcohol) [facility] Utilities Answer Date Recorded In the past 12 months has th e electric, gas, oil, or water [employer] threatened to shut off services in your home? No 04/24/2024 Social Connection and Isolat ion Panel [NHANES] Answer Date Recorded In a typical week, how many times do you talk on the phone with family, friends, or neighbors? More than three times a week 04/24/2024 How often do you get togethe r with friends or relatives? Never 04/24/2024 How often do you attend chur ch or oriental orthodox services? Never 04/24/2024 Do you belong to any clubs o r organizations such as hoahaoism groups, unions, fraternal or athletic groups, or school groups? Yes 04/24/2024 How often do you attend meet ings of the clubs or organizations you belong to? 1 to 4 times per year 04/24/2024 Are you , , di vorced, , never , or living with a partner? 04/24/2024 AUDIT-C Answer Date Recorded Q1: How often do you have a drink containing alc ohol? Monthly or less 04/24/2024 Q2: How many drinks containi ng alcohol do you have on a typical day when you are drinking? 1 or 2 04/24/2024 Q3: How often do you have si x or more drinks on one occasion? Never 04/24/2024 Overall Financial Resource Strain (CARDIA) Answe r Date Recorded How hard is it for you to pa y for the very basics like food, housing, medical care, and heating? Not hard at all 04/24/2024 PHQ-2 Answer Date Recorded Total Score 0 04/23/2024 [facility] - Occupational Stress Questionnaire Answer Date Recorded Do you feel stress - tense, restless, nervous, or anxious, or unable to sleep at night because your mind is troubled all the time - these days? Not at all 04/24/2024 Exercise Vital Sign Answer Date Recorde d On average, how many days pe r week do you engage in moderate to strenuous exercise (like a brisk walk)? 5 days 04/24/2024 On average, how many minutes do you engage in exercise at this level? 20 min 04/24/2024 PRAPARE - Transportation Answer Date Re corded In the past 12 months, has l ack of transportation kept you from medical appointments or from getting medications? No 12/2024 In the past 12 months, has l ack of transportation kept you from meetings, work, or from getting things needed for daily living? No 04/24/2024 Housing Instability Answer Date Recorde d Are you worried or concerned that in the next two months you may not have stable housing that you own, rent or stay in as a part of a household? No 04/24/2024 Childcare Answer Date Recorded Do problems getting child ca re make it difficult for you to work or study? No 04/24/2024 Employment Answer Date Recorded Do you need help finding a [facility] career center and/or a training program? No 04/24/2024 Hunger Screening Answer Date Recorded Within the past 12 months we worried whether our food would run out before we got money to buy more. Never True 05/16/2024 Within the past 12 months th e food we bought just didn't last and we didn't have money to get more. Never True 05/16/2024 Purpose - Life Answer Date Recorded I have a purpose and direction in my life. Stron gly Agree 04/24/2024 Sex and Gender Information Value Date Recorded Sex Assigned at Not on file Legal Sex Male 11:29 AM EDT Gender Identity Male 04/23/2024 2:52 PM EST Sexual Orientation Straight 04/23/2024 2: 52 PM EST Last Filed Vital Signs Vital Sign Reading Time Taken Comments Blood Pressure 188/68 08/21/2024 9:50 AM EDT Pulse 62 08/21/2024 9:50 AM EDT Temperature 36.2 C (97.1 F) 05/28/2024 11:03 AM EST Respiratory Rate 12 08/21/2024 9:50 AM EDT Oxygen Saturation 96% 08/21/2024 9:50 AM EDT Inhaled Oxygen Concentration - - Weight 63.5 kg (140 lb) 08/21/2024 8:01 AM EDT Height 172.7 cm (5' 8 ) 08/21/2024 8:01 AM EDT Body Mass Index 21.29 08/21/2024 8:01 AM EDT Plan of Treatment Upcoming Encounters Date Type Department Care Team (Latest Contact Info) Description 09/09/2024 12:00 PM EDT Office Visit [facility] [address] [place] [address] [place] [address] [place] [phone] Roe Harrison MD [address] [place] [address] 09/18/2024 9:30 AM EDT Hospital Encounter [facility] - Cardiac Cath [address] [place] [address] Aron Ruvalcaba MD [address] [place] [address] Renal artery stenosis 09/18/2024 9:30 AM EDT - 09/18/2024 10:30 AM EDT Surgery [facility] - Cardiac Cath [address] [place] [address] Aron Ruvalcaba MD [address] [place] [address] Vascular Invasive- bilateral renal artery angiogram with possible intervention 09/30/2024 9:00 AM EDT [facility] [address] [place] [address] Mona Carroll, PA-C [address] [place] [address] 2024 10:00 AM EDT Appointment [facility] - CT Imaging [address] [place] [address] Phillip Flores MD [address] [place] [address] [address] [place] [address] 10/31/2024 3:15 PM EDT Office Visit [facility] - Medical Oncology [address] [place] [address] Phillip Flores MD [address] [place] [address] 02/17/2025 1:15 PM EST Office Visit [facility] [address] [place] [address] [place] [address] [address] [place] [address] Roe Harrison MD [facility][note 3][address] [place] [id number] Health Maintenance Due Date Last Done Comments Abdominal Aortic Aneurysm (A AA) Screen 10/21/2011 COVID-19 Vaccine (2023-2 5 season) 2023 03/21/2021, 07/27/2020, 06/29/2020 Influenza Vaccine 12/15/2024 02/25/2024, , 01/04/2023, Additional history exists Fall Risk Screening 04/22/2025 04/22/2024 Depression Screening 04/23/2025 04/23/2024 Tobacco Screening 08/21/2025 08/21/2024 Colonoscopy 05/01/2027 05/01/2024, 04/16, 04/30/2024, Additional history exists DTaP,Tdap and Td Vaccines (6 - Td or Tdap) 05/28/2034 05/28/2024, 10/25/2023, 11/27/2020, Additional history exists Zoster (Shingles) Vaccine Completed 2018, 12/28/2017, 10/14/2010 Goals Goal Patient Goal Type Associated Problems Recent Progress Patient-Stated? Author home General Yes Hali Márquez LSW Note: Evaluation of progress towards goal: Pt's plan is still in progress Medical Devices Implanted Type Area Reinforced Concrete Inspector Device Identifier Shelf Expiration Date Model / Serial / Lot Mesh Perfix Light Plug X-Lg - Sn/A - [id number] Implanted:Qty: 1 on 02/26/2017 by Michael Byrd MD at [facility] Mesh Right: Abdomen DAVOL 09/10/2020 [id number] / N/A / [id number] Mesh Perfix Light Plug X-Lg - Sn/A - [id number] Implanted:Qty: 1 on 02/26/2017 by Michael Byrd MD at [facility] Mesh Left: Abdomen DAVOL 09/10/2020 [id number] / N/A / [id number] Mesh Perfix Light Plug Large - Sn/A - [id number] Implanted:Qty: 1 on 02/26/2017 by Michael Byrd MD at [facility] Mesh Left: Abdomen DAVOL 11/13/2018 [id number] / N/A / [id number] System Everolimus Elut Cor Stent Xience 5mm X 15mm Rx - [id number] Implanted:Qty: 1 on 06/20/2023 by Aron Ruvalcaba MD at [facility] Stent CARPIO [id number] 06/22/2023 [id number] System Everolimus Elut Cor Stent Xience 5mm X 15mm Rx - [id number] Implanted:Qty: 1 on 06/20/2023 by Aron Ruvalcaba MD at [facility] Stent CARPIO [id number] 08/29/2024 [id number] / [id number] Procedures Procedure Name Priority Date/Time Associated Diagnosis Comments PROCEDURE ABORTED (CV) Routine 08/21/2024 9:28 AM EDT Renal artery stenosis VASCULAR INVASIVE Routine 08/21/2024 9:2 8 AM EDT Renal artery stenosis FL SWALLOW MOTILITY FUNCTION Routine 08/20/2024 10:54 AM EDT Dysphagia, unspecified type CBC (NO DIFF) Routine 08/20/2024 10:47 AM EDT Renal artery stenosis End stage renal disease (CMS-HCC) BASIC METABOLIC PANEL Routine 08/20/2024 10:47 AM EDT Renal artery stenosis End stage renal disease (CMS-HCC) VASC RENAL ARTERY DUPLEX COMPLETE Routine 07/15/2024 10:59 AM EDT Renal artery stenosis PROVATION COLONOSCOPY Routine 05/01/2024 12:25 PM EST from Last 3 Months or Most Recently Relevant to Health Maintenance Results * PROCEDURE ABORTED (CV) (08/21/2024 9:28 AM EDT) Anatomical Region Laterality Modality X-Ray Angiograph y Narrative 08/21/2024 9:30 AM EDT Aborted invasive cardiology procedure -- see Procedure Log link for details. us Aron Ruvalcaba MD CV CARDIAC CATH ORDERABLES Fin al Result * Fluoroscopy swallow motility function (08/20/2024 10:54 AM EDT) Anatomical Region Laterality Modality Chest, Abdomen, Body Radio Fluor oscopy 08/20/2024 12:3 4 PM EDT Narrative 08/20/2024 12:34 PM EDT STUDY: Video fluoroscopic swallow study CLINICAL HISTORY: Oral pharyngeal dysphagia, difficulty swallowing COMPARISON: None. FINDINGS: Video fluoroscopic swallow study was performed in conjunction with members of speech pathology. Barium contrast materials of multiple consistencies were administered. Fluoroscopic reference air kerma was 3.0 mGy. Multiple video fluoroscopic images. Zero fluoroscopic spot films. Total fluoroscopy time 2.3 minutes There is a possible episode of flash penetration when the patient ingested large sequential swallows. No other aspiration with penetration was demonstrated. Correlate with dedicated speech pathology report for additional details and recommendations. IMPRESSION: 1. As above Finalized by Michael Corley MD on 08/20/2024 12:34 PM Procedure Note Michael Corley MD - 08/20/2024 STUDY: Video fluoroscopic swallow study CLINICAL HISTORY: Oral pharyngeal dysphagia, difficulty swallowing COMPARISON: None. FINDINGS: Video fluoroscopic swallow study was performed in conjunction with membersof speech pathology. Barium contrast materials of multiple consistencieswere administered. Fluoroscopic reference air kerma was 3.0 mGy. Multiplevideo fluoroscopic images. Zero fluoroscopic spot films. Total fluoroscopy time 2.3 minutes There is a possible episode of flash penetration when the patient ingestedlarge sequential swallows. No other aspiration with penetration wasdemonstrated. Correlate with dedicated speech pathology report for additional detailsand recommendations. IMPRESSION: 1. As above Finalized by Michael Corley MD on 08/20/2024 12:34 PM us Chary Calloway MD IMG FLUOROSCOPY ORDERABLES Final Result * (ABNORMAL) CBC without diff (08/20/2024 10:47 AM EDT) WBC 9.2 4 - 11 x10E9/L 08/20/2024 2:51 PM EDT [facility] RBC Count 4.48 4.1 - 5.7 X10E12/L 08/20/2024 2:51 PM EDT [facility] Hemoglobin 13.0 13 - 17 g/dL 08/20/2024 2:51 PM EDT [facility] Hematocrit 38.8(L) 39 - 50 % 08/20/2024 2:51 PM EDT [facility] MCV 87 80 - 100 fL 08/20/2024 2:51 PM EDT [facility] MCH 29.0 27 - 34 pg 08/20/2024 2:51 PM EDT [facility] MCHC 33.4 32 - 36 g/dL 08/20/2024 2:51 PM EDT [facility] RDW 16.0(H) 11.5 - 15 % 08/20/2024 2:51 PM EDT [facility] Platelet Count 267 150 - 450 X10E9/L 08/20/2024 2:51 PM EDT [facility] MPV 9.7 7 - 12 fL 08/20/2024 2:51 PM EDT [facility] Blood Venipuncture / Unknown 08/20/2024 10:47 AM EDT 08/20/2024 10:48 AM EDT us Aron Ruvalcaba MD LAB BLOOD ORDERABLES Final Res ult [facility] [address] [place] [id number], * (ABNORMAL) Basic Metabolic Panel (08/20/2024 10:47 AM EDT) SODIUM 138 134 - 146 mmol/L 08/20/2024 6:44 PM EDT [facility] POTASSIUM 4.1 3.5 - 5.0 mmol/L 08/20/2024 6:44 PM EDT [facility] CHLORIDE 102 98 - 109 mmol/L 08/20/2024 6:44 PM EDT [facility] CARBON DIOXIDE 27 22 - 32 mmol/L 08/20/2024 6:44 PM EDT [facility] ANION GAP 9 5 - 15 mmol/L 08/20/2024 6:44 PM EDT [facility] BLOOD UREA NITROGEN 25 5 - 27 mg/dL 08/20/2024 6:44 PM EDT [facility] CREATININE 1.31(H) 0.60 - 1.30 mg/dL 08/20/2024 6:44 PM EDT [facility] Comment:METHOD TRACEABLE TO IDMS STANDARD GLUCOSE 240(H) 65 - 99 mg/dL 08/20/2024 6:44 PM EDT [facility] CALCIUM 8.8 8.5 - 10.5 mg/dL 08/20/2024 6:44 PM EDT [facility] EGFR Non-Race Dependent 56(L) >=60 ml/min/1.7 3sq.m 08/20/2024 6:44 PM EDT [facility] Comment: Reported eGFR is based on the CKD-EPI 2020 equation that does not use a race coefficient. Blood Venipuncture / Unknown 08/20/2024 10:47 AM EDT 08/20/2024 10:48 AM EDT us Aron Ruvalcaba MD LAB BLOOD ORDERABLES Final Res ult [facility] [address] [place] [address], [place] [phone] * Vas renal artery duplex complete (07/15/2024 10:59 AM EDT) Anatomical Region Laterality Modality Vascular N/A Ultrasound 07/15/2024 11:2 3 AM EDT Narrative 07/16/2024 8:35 PM EDT Previous: History of IVUS renal artery stenting on 06/20/2023. Previous renal artery duplex exam performed: 01/03/2024. Patent renal artery stents. Right: Elevated spectral Doppler velocities (248/38 cm/sec) with significant color flow disturbances at the proximal renal artery stent. Normal kidney size (9-12 cm). Phasic spectral Doppler signal with color flow noted in renal vein. Left: Elevated spectral Doppler velocities (598/214 cm/sec) with significant color flow disturbances at the proximal renal artery stent. Normal kidney size (9-12 cm). Phasic spectral Doppler signal with color flow noted in renal vein. Conclusions: BILATERAL: Stenotic renal artery stent. When compared to previous report significant changes were noted. Procedure Note Kavitha Billy MD - 07/16/2024 Previous: History of IVUS renal artery stenting on 06/20/2023. Previousrenal artery duplex exam performed: 01/03/2024. Patent renal artery stents. Right: Elevated spectral Doppler velocities (248/38 cm/sec) withsignificant color flow disturbances at the proximal renal artery stent.Normal kidney size (9-12 cm). Phasic spectral Doppler signal with colorflow noted in renal vein. Left: Elevated spectral Doppler velocities (598/214 cm/sec) withsignificant color flow disturbances at the proximal renal artery stent.Normal kidney size (9-12 cm). Phasic spectral Doppler signal with colorflow noted in renal vein. Conclusions: BILATERAL: Stenotic renal artery stent. When compared toprevious report significant changes were noted. us Aron Ruvalcaba MD CV VASCULAR ORDERABLES Final R esult * Colonoscopy Report (05/01/2024 12:25 PM EST) Narrative SYSTEMGENERATED, DOCUMENTATION - 05/01/2024 12:25 PM EST This order has been auto-finalized for image and report archival in PACs. *For full report details, please reach out to your physician. This image is visible to you in MyChart.* Delicia Lind PA-C IMG OR IMG ORDERABLES Final Res ult from Last 3 Months or Most Recently Relevant to Health Maintenance Insurance [employer] MEDICARE [facility] OPTUM [place] OPTUM Advance Directives Documents on File Type Date Recorded Patient Agile Developer Expl anation Living Will 11/11/2020 1:27 PM Durable Power of Service Center Representative 11/11/2020 1:27 PM * Full Code (Latest Code Status on File) Date Activated Date Inactivated Comments 05/01/2024 9:22 PM 05/03/2024 5:12 PM * Full Code Date Activated Date Inactivated Comments 04/24/2024 4:30 AM 05/01/2024 11:48 AM * Full Code Date Activated Date Inactivated Comments 04/23/2024 1:03 PM 04/24/2024 4:07 AM * Full Code Date Activated Date Inactivated Comments 10/31/2020 11:00 PM 11/04/2020 4:59 PM Care Teams Storekeeper Engineering Relationship Specialty Start Date End Date Chary Calloway MD [address] [place] [address] PCP - General Family Medicine 04/10/24
--- OUTSIDE RECORDS SUMMARY | 2024-09-09 09:09 | XMS_ITS | Encounter Summary ---
Author Organization [facility] Address [facility] [place] [address] Care Team Providers Care Electronic Data Processing Auditor Name Role Phone Elisabeth Melendez MD Unavailable [phone] Chary Calloway MD Primary Care Provider [phone] Source Comments In the event this information is protected by the Federal Confidentiality of Alcohol and Drug AbusePatient Records regulations: The Federal rules restrict any use of the information to criminally investigate or prosecute any alcohol or drug abuse patient.[facility] Encounter Details Date Type Department Care Team (Late st Contact Info) Description 07/10/2023 Patient Msg Vascular Surgery [address] [place], [place] [id number] Provider, Ccf Results of CTA abdomen pelvis Social History Tobacco Use Types Packs/Day Years Used Date Smoking Tobacco: Every Day Cigarettes 1 55 Cigars Smokeless Tobacco: Never Comments:cigars Alcohol Use Standard Drinks/Week Comments Yes 3 (1 standard drink = 0.6 oz pur e alcohol) occasional Area Deprivation Index Answer Date Trevin rded National Score (1-100), lower number is lower ri sk 52 08/25/2022 State Score (1-10), lower number is lower risk 3 08/25/2022 Data from: https://www.neighborhoodatlas.[facility]/. Last address used for calculation [address] 08/25/2022 Sex and Gender Information Value Date Recorded Sex Assigned at Not on file Legal Sex Male 8:07 AM EST Gender Identity Not on file Sexual Orientation Not on file documented as of this encounter Plan of Treatment Upcoming Encounters Date Type Department Care Team (Late st Contact Info) Description 02/02/2025 9:00 AM EDT Office Visit Vascular Lab [address] [place] [address] [place] [address] Mc, [place] Fire Prevention Inspector [address] [place] [address] 6 MONTH PAD/CAROTID/MESENTERI C FOLLOW UP 02/02/2025 10:00 AM EDT Office Visit Vascular Lab [address] [place] [address] [place] [address] Mc, [place] Fire Prevention Inspector [address] [place] [address] 6 MONTH PAD/CAROTID/MESENTERI C FOLLOW UP 02/02/2025 11:00 AM EDT Office Visit Vascular Lab [address], [place] [address] [place] [address] Mc, [place] Fire Prevention Inspector [address] [place] [address] 6 MONTH PAD/CAROTID/MESENTERI C FOLLOW UP 02/02/2025 12:00 PM EDT Office Visit Vascular Surgery [address] [place] [address] [place] [address] [place] [address] [place] [address] 6 MONTH PAD/CAROTID/MESENTERI C FOLLOW UP documented as of this encounter Visit Diagnoses Not on filedocumented in this encounter Care Teams Electronic Data Processing Auditor Relationship Specialty Start Date End Date Chary Calloway MD [address] [facility] [place] [address] PCP - General Family Medicine 09/01/21 Elisabeth Melendez MD [address] [place] [address] Physician Ent - Otolaryngology 10/29/15 documented as of this encounter
--- OUTSIDE RECORDS SUMMARY | 2024-09-09 09:09 | XMS_ITS | Encounter Summary ---
Author Organization [facility] Address [address] [place] [address] Care Team Providers Care Beauty Therapist Name Role Phone Chary Calloway MD Unavailable Chary Calloway MD Primary Care Provider [phone] Encounter Details Date Type Department Care Team (Late st Contact Info) Description 10/18/2022 Abstract [facility] [address] [place] [address] Lanie Arredondo, COVERING MACHINE OPERATOR HELPER Social History Tobacco Use Types Packs/Day Years Used Date Smoking Tobacco: Every Day Cigarettes Started: 1964 Smokeless Tobacco: Never Comments:1-9 cigs/ day Alcohol Use Standard Drinks/Week Comments Not Currently 0 (1 standard drink = 0.6 oz pure alcohol) caffeine intake : 3-4 cups per day ; coffee Sex and Gender Information Value Date Recorded Sex Assigned at Not on file Legal Sex Male 6:48 PM EDT Gender Identity Not on file Sexual Orientation Not on file documented as of this encounter Plan of Treatment Upcoming Encounters Date Type Department Care Team (Late st Contact Info) Description 09/17/2024 11:00 AM EDT Office Visit [facility] [address] [facility] [address] [place] [address] Jake Lainez MD [address] [place] [place] [address] 10/03/2024 11:00 AM EDT Office Visit [facility] [address] [place] [address] Ruby Arteaga MD [address] [place] [address] 11/12/2024 10:40 AM EDT Office Visit [facility] [address] [place] [facility] [place] [address] Chary Calloway MD [address] [facility], [place] [address] 08/26/2025 1:05 PM EDT Office Visit [facility] [address] [place] [address] Ruby Arteaga MD [address] [place] [address] documented as of this encounter Visit Diagnoses Not on filedocumented in this encounter Care Teams Beauty Therapist Relationship Specialty Start Date End Date Chary Calloway MD [address] [place] [address] PCP - [employer] 04/16/17 Chary Calloway MD [address] [place] [address] PCP - General Family Medicine 09/04/22 documented as of this encounter
--- OUTSIDE RECORDS SUMMARY | 2024-09-09 09:09 | XMS_ITS | Encounter Summary ---
Author Organization [facility] Address [address] [facility] [place] [address] Care Team Providers Care Can Cleaner Name Role Phone Chary Calloway MD Unavailable Chary Calloway MD Primary Care Provider [phone] Encounter Details Date Type Department Care Team (Late Contact Info) Description 08/20/2024 External Result Encounter [facility] [address] [place] [address] Chary Calloway MD [address] [place] [address] Social History Tobacco Use Types Packs/Day Years Used Date Smoking Tobacco: Former Cigarettes 1 96 - 02/2023 Smokeless Tobacco: Never Comments:1-9 cigs/ [...] Encounters Date Type Department Care Team (Late Contact Info) Description 09/17/2024 11:00 AM EDT Office Visit [facility] [address] [facility] [place] [address] Jake Lainez MD [address] [facility] [address] [address] 10/03/2024 11:00 AM EDT Office Visit [facility] [address] [place] [address] Ruby Arteaga MD [address] [place] [address] 11/12/2024 10:40 AM EDT Office Visit [facility]OWE[facility] [address] [place] [address] Chary Calloway MD [address] [facility] [place] [address] 08/26/2025 1:05 PM EDT Office Visit [facility] [address] [place] [address] Ruby Arteaga MD [address] [place], [place] [phone] documented as of this encounter Goals Goal Patient Goal Type Associated Problems Recent Progress Patient-Stated? Author Help patient manage antidepressant medication Care Plan Patient on antidepressant monitoring plan Chary Watts MD Baseline PHQ-9 Care Plan Baseline PHQ-9 No Chary Calloway MD documented as of this encounter Procedures Procedure Name Priority Date/Time Associated Diagnosis Comments SWALLOW MOTILITY FUNCTION 08/20/2024 12:35 PM EDT documented in this encounter Results * SWALLOW MOTILITY FUNCTION (08/20/2024 12:35 PM EDT) Anatomical Region Laterality Modality Radiographic Tory ging 08/20/2024 12:3 5 PM EDT Narrative 08/20/2024 12:34 PM EDT THIS EXAM WAS PERFORMED AT [facility] STUDY: Video fluoroscopic swallow study CLINICAL HISTORY: [...] MD on 08/20/2024 12:34 PM Procedure Note Radiology, Radiologist, MD - 08/20/2024 THIS EXAM WAS PERFORMED AT [facility] STUDY: Video fluoroscopic swallow study CLINICAL HISTORY: [...] Michael Corley MD on 08/20/2024 12:34 PM Chary Calloway MD IMG XR PROCEDURES Final Result documented in this encounter Visit Diagnoses Not on filedocumented in this encounter Additional Health Concerns Active Problems Noted Date Diagnosed Date Patient on antidepressant monitoring plan 2022 Baseline PHQ-9 01/03/2023 Assessment Noted Time PHQ-9 Depression Total Score: 0 04/19/19 24 1:00 PM EST documented as of this encounter Care Teams Can Cleaner Relationship Specialty Start Date End Date Chary Calloway MD [address] [facility] [place] [address] PCP - [employer] 04/16/17 Chary Calloway MD [address] [place] [address] PCP - General Family Medicine 09/04/22 documented as of this encounter
--- OUTSIDE RECORDS SUMMARY | 2024-09-09 09:09 | XMS_ITS | Encounter Summary ---
Author Organization [facility] Address [address] [place] [address] Care Team Providers Care Pharmacy Operations Manager Name Role Phone Chary Calloway MD Unavailable Chary Calloway MD Primary Care Provider [phone] Reason for Visit * Reason Comments Med Refill Encounter Details Date Type Department Care Team (Late st Contact Info) Description 10/18/2022 Refill [facility] [address] [place] [address] Chary Calloway MD [address] [place] [address] Type 2 diabetes mellitus without complication, without long-term current use of insulin ([facility]) (Primary Dx) Social History Tobacco Use Types Packs/Day Years Used Date Smoking Tobacco: Every Day Cigarettes Started: 1963 Smokeless Tobacco: Never Comments:1-9 cigs/ day Alcohol [...] encounter Miscellaneous Notes * Telephone Encounter - Chary Calloway MD - 10/18/2022 9:10 AM EDT Approvals with refills documented in this encounter Plan of Treatment Upcoming Encounters Date Type Department Care Team (Late st Contact Info) Description 09/17/2024 11:00 AM EDT Office Visit [facility] [address] [place] [address] Jake Lainez MD [address] [facility] [address] [id number] 10/03/2024 11:00 AM EDT Office Visit [facility] [address] [place] [address] Ruby Arteaga MD [address] [place] [address] 11/12/2024 10:40 AM EDT Office Visit [facility] [address] [place] [address] Chary Calloway MD [address] [place] [address] 08/26/2025 1:05 PM EDT Office Visit [facility] [address] [place] [address] Ruby Arteaga MD [address] [place] [address] documented as of this encounter Visit Diagnoses Diagnosis Type 2 diabetes mellitus without complication, without long-term current use of insulin- Primary documented in this encounter Care Teams Pharmacy Operations Manager Relationship Specialty Start Date End Date Chary Calloway MD [address] [place] [address] PCP - [employer] 04/16/17 Chary Calloway MD [address] [place] [address] PCP - General Family Medicine 09/04/22 documented as of this encounter
--- OUTSIDE RECORDS SUMMARY | 2024-09-09 09:09 | XMS_ITS | Encounter Summary ---
Author Organization [facility] Address [id number] [address] [place] [address] Care Team Providers Care Gear Finisher Name Role Phone Chary Calloway MD Primary Care Provider [phone] Encounter Details Date Type Department Care Team (Late st Contact Info) Description 10/28/2021 Abstract [facility] [address] [place] [address] External, Scanning Provider Social History [...] often do you attend chur ch or quaker services? Never 11/01/2020 Do you belong to any clubs o r organizations such as restorationism groups, unions, fraternal or athletic groups, or [...] Recorded Do you need help finding a [employer] career center and/or a training program? No [...] Office Visit [facility] [address] [place] [address] [place] [address] Roe Harrison MD [facility] [place] [address] 09/18/2024 9:30 AM EDT Hospital Encounter [facility] - Cardiac Cath [address] [place] [address] Aron Ruvalcaba MD [address] [place] [address] Renal artery stenosis 09/18/2024 9:30 AM EDT - 09/18/2024 10:30 AM EDT Surgery [facility] - Cardiac Cath [address] [place] [address] Aron Ruvalcaba MD [address] [place] [address] Vascular Invasive- bilateral renal artery angiogram with possible intervention 09/30/2024 9:00 AM EDT Office Visit [facility] [address] [place] [address] Mona Carroll, PAIsraelC [address] [place] [address] 2024 10:00 AM EDT Appointment [facility] - CT Imaging [address] [place] [address] Phillip Flores MD [address] [place] [address] 10/31/2024 3:15 PM EDT Office Visit [facility] - Medical Oncology [facility] [place] [address] Phillip Flores MD [address] [place] [address] 02/17/2025 1:15 PM EST Office Visit [facility] [address] [place] [address] [place] [address] Roe Harrison MD [address] [place], [place] [phone] documented as of this encounter Procedures Procedure Name Priority Date/Time Associated Diagnosis Comments PROSTATIC SPECIFIC ANTIGEN, DIAGNOSTIC Routine 09/13/2021 documented in this encounter Results * Prostatic specific antigen, diagnostic (09/13/2021) Psa 6.450 MANUALLY TRANSCRIBED RESULTS 09/13/2021 us Scanning Provider External LAB BLOOD ORDERABLES Final Result MANUALLY TRANSCRIBED RESULTS documented in this encounter Visit Diagnoses Not on filedocumented in this encounter Additional Health Concerns Infection Onset Date Last Indicated Resolved Time Enteric Rule-Out 04/24/2024 04/24/2024 04/25/2024 2:05 PM EST Assessment Noted Time PHQ-9 Depression Total Score: 0 04/24/19 20 8:56 AM EST documented as of this encounter Care Teams Gear Finisher Relationship Specialty Start Date End Date Chary Calloway MD [address] [place] [address] PCP - General Family Medicine 04/10/24 documented as of this encounter
--- OUTSIDE RECORDS SUMMARY | 2024-09-09 09:09 | XMS_ITS | Encounter Summary ---
Author Organization [facility] Address [address] [facility] [place] [address] Care Team Providers Care Shredded Filler Machine Wrapper Layer Name Role Phone Chary Calloway MD Unavailable Chary Calloway MD Primary Care Provider [phone] Encounter Details Date Type Department Care Team (Late Contact Info) Description 01/29/2023 Abstract [facility] [address] [place] [address] Chary Calloway MD [address] [place] [address] Social History Tobacco Use Types [...] Office Visit [facility] [address] [facility] [address] [place] [address] Jake Lainez MD [address] [facility] [address] [address] 10/03/2024 11:00 AM EDT Office Visit [facility] [address] [place] [address] Ruby Arteaga MD [address] [place] [address] 11/12/2024 10:40 AM EDT Office Visit [facility] [address] [place] [facility] [place] [address] Chary Calloway MD [address] [place] [address] 08/26/2025 1:05 PM EDT Office Visit [facility] [address] [place] [address] Ruby Arteaga MD [address] [place] [address] documented as of this encounter Goals Goal [...] antidepressant monitoring plan 2022 Baseline PHQ-9 01/03/2023 documented as of this encounter Care Teams Shredded Filler Machine Wrapper Layer Relationship Specialty Start Date End Date Chary Calloway MD [address] [facility] [place] [address] PCP - [employer] 04/16/17 Chary Calloway MD [address] [facility] [place] [address] PCP - General Family Medicine 09/04/22 documented as of this encounter
--- OUTSIDE RECORDS SUMMARY | 2024-09-09 09:09 | XMS_ITS | Encounter Summary ---
Author Organization [facility] Address [id number] [address] [place] [address] Care Team Providers Care Bead Preparer Name Role Phone Chary Calloway MD Primary Care Provider [phone] Encounter Details Date Type Department Care Team (Late st Contact Info) Description 10/28/2021 Abstract [facility] [address] [place] [address] External, Scanning Provider Social History [...] often do you attend chur ch or methodist services? Never 11/01/2020 Do you belong to any clubs o r organizations such as adventism groups, unions, fraternal or athletic groups, or [...] Recorded Do you need help finding a [employer] career center and/or a training program? No [...] Office Visit [facility] [address] [place] [address] [place] [address] Roe Harrison MD [facility] [place] [address] 09/18/2024 9:30 AM EDT Hospital Encounter [facility] - Cardiac Cath [address] [place] [address] Aron Ruvalcaba MD [address] [place] [address] Renal artery stenosis 09/18/2024 9:30 AM EDT - 09/18/2024 10:30 AM EDT Surgery [facility] - Cardiac Cath [address] [place] [address] Aron Ruvalcaba MD [address] [place] [address] Vascular Invasive- bilateral renal artery angiogram with possible intervention 09/30/2024 9:00 AM EDT Office Visit [facility] [address] [place] [address] Mona Carroll, PAIsraelC [address] [place] [address] 2024 10:00 AM EDT Appointment [facility] - CT Imaging [address] [place] [address] Phillip Flores MD [address] [place] [address] 10/31/2024 3:15 PM EDT Office Visit [facility] - Medical Oncology [facility] [place] [address] Phillip Flores MD [address] [place] [address] 02/17/2025 1:15 PM EST Office Visit [facility] [address] [place] [address] [place] [address] Roe Harrison MD [facility] [place] [address] documented as of this encounter Procedures Procedure Name Priority Date/Time Associated Diagnosis Comments COMPREHENSIVE METABOLIC PANEL Routine 06/07/2021 documented in this encounter Results * Comprehensive metabolic panel (06/07/2021) 06/07/2021 us Scanning Provider External LAB BLOOD ORDERABLES Final Result MANUALLY TRANSCRIBED RESULTS documented in this encounter Visit Diagnoses Not on filedocumented in this encounter Additional Health Concerns Infection Onset Date Last Indicated Resolved Time Enteric Rule-Out 04/24/2024 04/24/2024 04/25/2024 2:05 PM EST Assessment Noted Time PHQ-9 Depression Total Score: 0 04/24/19 8:56 AM EST documented as of this encounter Care Teams Bead Preparer Relationship Specialty Start Date End Date Chary Calloway MD [address] [place] [address] PCP - General Family Medicine 04/10/24 documented as of this encounter
--- OUTSIDE RECORDS SUMMARY | 2024-09-09 09:09 | XMS_ITS ---
Author Organization [facility] Healthcare Address [address] [place] [address] Care Team Providers Care Mail Deliverer Name Role Phone Chary Calloway MD Unavailable Chary Calloway MD Primary Care Provider [phone] Chronic Care Management (CCM) Status:Enrolled (Active) Start date:08/31/2022 Enrollment date:08/31/2022 Case Team Name Relationship Phone Nick Maravilla LPN(Responsible Staff) Clinical Ad vocate [phone] Continued Care and Services Coordination
--- OUTSIDE RECORDS SUMMARY | 2024-09-09 09:09 | XMS_ITS | Encounter Summary ---
Author Organization [employer] Address [facility] [id number] [address] [place] [address] Care Team Providers Care Bar Tacker Name Role Phone Chary Calloway MD Primary Care Provider [phone] Reason for Referral * Diagnostic Imaging (Routine) - Pending Review Specialty Diagnoses / Procedures Referred By Contac t Referred To Contact Radiology Diagnoses Iron deficiency anemia due to chronic blood loss Normocytic anemia Renal artery stenosis Procedures CT abdomen and pelvis without contrast Phillip Flores MD [facility] [address] [place] [address] Phone: tel: fax: Referral ID Status Reason Start Date Expiration Date V isits Requested Visits Authorized [id number] Pending Review 05/23/2024 05/23/2025 1 1 Encounter Details Date Type Department Care Team (Late st Contact Info) Description 05/23/2024 Orders Only Adilene López [facility] - Medical Oncology [address] [place] [address] Elda Melendez RN Iron deficiency anemia due to chronic blood loss (Primary Dx); Normocytic anemia; Renal artery stenosis ([facility]) Social History Tobacco Use Types Packs/Day Years Used Date Smoking Tobacco: Former Cigarettes 1 60 Q uit: 02/2023 Smokeless Tobacco: Never Comments:and cigars occassio nal Alcohol Use Standard Drinks/Week Comments Yes 1 (1 standard drink = 0.6 oz pur e alcohol) [facility] Utilities Answer Date Recorded In the past 12 months has th e electric, gas, oil, or water company threatened to shut off services in your [...] often do you attend chur ch or catholic services? Never 04/24/2024 Do you belong to any clubs o r organizations such as baptist groups, unions, fraternal or athletic groups, or [...] Answer Date Recorded Total Score 0 04/23/2024 [facility] Occupat ional Health - Occupational Stress [...] Recorded Do you need help finding a [facility] career center and/or a training program? [...] Orientation Straight 04/23/2024 2: 52 PM EST documented as of this encounter Plan of Treatment Upcoming Encounters Date Type Department Care Team (Latest Contact Info) Description 09/09/2024 12:00 PM EDT Office Visit [facility] [address] [place] [address] [place] [address] Roe Harrison MD [address] [place], [place] [id number] 09/18/2024 9:30 AM EDT Hospital Encounter [facility] - Cardiac Cath [address] [place] [address] Aron Ruvalcaba MD [address] [place] [address] Renal artery stenosis 09/18/2024 9:30 AM EDT - 09/18/2024 10:30 AM EDT Surgery [facility] - Cardiac Cath [address] [place] [address] Aron Ruvalcaba MD [address] [place] [address] Vascular Invasive- bilateral renal artery angiogram with possible intervention 09/30/2024 9:00 AM EDT Office Visit [facility] [address] [place] [phone] Mona Carroll, PA-C [address] [place] [address] 2024 10:00 AM EDT Appointment [facility] - CT Imaging [address] [place] [address] Phillip Flores MD [address] [facility] [address] [place] [id number] 10/31/2024 3:15 PM EDT Office Visit [facility] - Medical Oncology [address] [place] [address] Phillip Flores MD [address] [facility] [address] [place] [address] 02/17/2025 1:15 PM EST Office Visit [facility] [address] [place] [address] [address] [facility] [place] [address] Roe Harrison MD [address] [place] [address] Scheduled Orders Name Type Priority Associated Diagnoses Orde r Schedule CT abdomen and pelvis without contrast Imaging Routine Iron deficiency anemia due to chronic blood loss Normocytic anemia Renal artery stenosis (CMS-HCC) Expected: 2024, Expires: 05/23/2025 CBC with auto diff Lab Routine Iron deficiency anemia due to chronic blood loss Normocytic anemia Renal artery stenosis (CMS-HCC) 1 Occurrences starting 05/23/2024 until 05/23/2025 Iron and TIBC Lab Routine Iron deficiency anemia due to chronic blood loss Normocytic anemia Renal artery stenosis (CMS-HCC) 1 Occurrences starting 05/23/2024 until 05/23/2025 Ferritin Lab Routine Iron deficiency anemia due to chronic blood loss Normocytic anemia Renal artery stenosis (CMS-HCC) 1 Occurrences starting 05/23/2024 until 05/23/2025 documented as of this encounter Goals Goal Patient Goal Type Associated Problems Recent Progress Patient-Stated? Author home General Yes Hali Márquez LSW Note: Evaluation of progress towards goal: Pt's plan is still in progress documented as of this encounter Visit Diagnoses Diagnosis Iron deficiency anemia due to chronic blood loss- Primary Iron deficiency anemia secondary to blood loss (chronic) Normocytic anemia Unspecified anemia Renal artery stenosis Atherosclerosis of renal artery Renal artery stenosis- Primary Atherosclerosis of renal artery Renal artery stenosis Atherosclerosis of renal artery documented in this encounter Additional Health Concerns Assessment Noted Time PHQ-9 Depression Total Score: 0 04/23/19 25 2:58 PM EST documented as of this encounter Care Teams Bar Tacker Relationship Specialty Start Date End Date Chary Calloway MD [address] [place] [address] PCP - General Family Medicine 04/10/24 documented as of this encounter
--- OUTSIDE RECORDS SUMMARY | 2024-09-09 09:09 | XMS_ITS | Encounter Summary ---
Author Organization [facility] Address [address] [place] [address] Care Team Providers Care Silk Screen Layout Drafter Name Role Phone Chary Calloway MD Unavailable Chary Calloway MD Primary Care Provider [phone] Encounter Details Date Type Department Care Team (Late Contact Info) Description 11/08/2022 Clinisync Result Encounter [facility] External Department Unsolicited Provider, Generic External Data Social History Tobacco Use Types Packs/Day Years [...] Office Visit [facility] [address] [place] [address] Jake Lainez MD [address] [facility] [address] [place] [address] 10/03/2024 11:00 AM EDT Office Visit [facility] [address] [place] [address] Ruby Arteaga MD [address] [place] [address] 11/12/2024 10:40 AM EDT Office Visit [facility] [address] [place] [address] Cahry Calloway MD [address] [place] [address] 08/26/2025 1:05 PM EDT Office Visit [facility] [address] [place] [address] Ruby Arteaga MD [address] [place] [address] documented as of this encounter Procedures Procedure Name Priority Date/Time Associated Diagnosis Comments CTA ABD/PELV W IVCON 11/08/2022 1:23 PM EDT documented in this encounter Results * CTA ABD/PELV W IVCON (11/08/2022 1:23 PM EDT) Anatomical Region Laterality Modality Other 11/08/2022 1:23 PM EDT Narrative 11/08/2022 7:56 PM EDT * * *Final Report* * * DATE OF EXAM: Nov 08 2022 1:23PM [facility] 0134 - CTA ABD/PELV W IVCON / PROCEDURE REASON: Chronic mesenteric ischemia (HCC) * * * * Physician Interpretation * * * * CT ANGIOGRAM OF THE ABDOMEN AND PELVIS HISTORY: Mesenteric ischemia TECHNIQUE: High-resolution contrast-enhanced helical CT of the abdomen and pelvis was performed, timed to the arterial phase. 3D maximum intensity projection images were created, reviewed and archived. Total of 100 ml of Omnipaque 350 was injected IV during the examination. The study was performed without oral contrast. The patient tolerated the injection without complications. Dose-Length Product (DLP): 331 mGy*cm. CT Dose Reduction Employed: Automated exposure control(AEC) and iterative recon RESULT: COMPARISON: Comparison is made with prior study performed on 05/28/2019. ABDOMEN: Images of the aorta demonstrate diffuse atherosclerotic change without significant focal stenosis or aneurysm. There is extensive mural thrombus or soft plaque in the infrarenal abdominal aorta. There is been interval partial recanalization of some of the mural thrombus with a linear calcification noted within the abdominal aortic lumen noted on image 228 series 302. 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 There is flow distal to the stent near the celiac trifurcation. There are prominent intrapancreatic collaterals, as well as a prominent gastroduodenal artery. This is unchanged from the prior examination though the intrapancreatic collaterals are better appreciated on today's examination. Superior mesenteric artery demonstrates a stent with minimal neointimal hyperplasia and is widely patent. Flow is noted in the SMA distally.. Inferior mesenteric artery demonstrates short segment occlusion at its origin. Flow is noted just distal to the origin. This is unchanged. There is a single right renal artery. Right renal artery demonstrates severe ostial stenosis which is stable. There is a single left renal artery. Left renal artery demonstrates mild ostial narrowing which is not significantly changed. RIGHT LEG: Right common iliac artery is stented with minimal neointimal hyperplasia and is otherwise patent. Right external iliac artery is stented and the stent is patent. Right internal iliac artery is occluded with distal reconstitution of flow in the pelvic branches. Right common femoral artery demonstrates atherosclerotic calcific aeration soft plaque with resultant moderate narrowing which is unchanged. Right profunda femoris artery patent in its visualized portion. Right superficial femoral artery demonstrates moderate narrowing at the origin though the remainder of the visualized vessel appears to be patent. LEFT LEG: Left common iliac artery is severely diseased with atherosclerotic calcifications of soft plaque with resultant severe stenosis proximally. There is an area of ectatic dilatation measuring approximately 14 mm with significant in situ thrombosis in moderate luminal narrowing which is also unchanged. Left external iliac artery severely narrowed proximally. There is moderate narrowing of the vessel secondary to scarring calcifications which is unchanged. Left internal iliac artery demonstrates multifocal severe narrowing though flow is noted distally. Left common femoral artery demonstrates atherosclerotic calcifications and severe narrowing just above the bifurcation Left profunda femoris artery is patent in its visualized portions. Left superficial femoral artery is moderately narrowed in its visualized portions. NONVASCULAR FINDINGS: Industrial Sales Representative (topogram) images: Unremarkable. Lung Bases: Minimal atelectasis Abdomen and pelvis: Liver: No mass. Spleen: No mass. No splenomegaly. Pancreas: No mass or duct dilation. Biliary: No bile duct dilation. Gallbladder is collapsed. Adrenals: No mass. Kidneys: No mass, calculus or hydronephrosis. GI tract: No dilation or wall thickening. There is prominent vascularity along the anterior aspect of the right colon which is best seen on image 112 series 301. Colonic diverticula without evidence of diverticulitis Lymph nodes: No abdominal or pelvic lymphadenopathy. Mesentery/Peritoneum: No ascites or mass. Pelvis: No mass, ascites or fluid collection. Bones/Soft Tissues: Degenerative changes. 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 THERE IS A PATENT SUPERIOR MESENTERIC ARTERY STENT WITH A NETWORK OF COLLATERALS AROUND THE GASTRODUODENAL ARTERY, AND THE PANCREATIC PARENCHYMA. OVERALL THIS IS UNCHANGED FROM THE PRIOR EXAMINATION. PATENT RIGHT COMMON AND EXTERNAL ILIAC ARTERY STENTS. SEVERE LEFT COMMON ILIAC ARTERY DISEASE. THERE IS SEVERE DISTAL LEFT COMMON FEMORAL ARTERY DISEASE. PROMINENT VASCULARITY INVOLVING THE ANTERIOR ASPECT OF RIGHT COLON. THIS COULD BEEN SECONDARY TO THE ALTERED VASCULATURE THOUGH AN ARTERIOVENOUS MALFORMATION CANNOT BE EXCLUDED. Instrument Sterilizer: [facility] Transcribe Date/Time: Nov 08 2022 2:05P Dictated by : HEATHER PRATT MD This examination was interpreted and the report reviewed and electronically signed by: HEATHER PRATT MD on Nov 08 2022 7:54PM EST [id number]^ACN Procedure Note Radiology, Radiologist, - 11/09/2022 * * *Final Report* * * DATE OF EXAM: Nov 08 2022 1:23PM [facility] 0134 - CTA ABD/PELV W IVCON / PROCEDURE REASON: Chronic mesenteric ischemia (HCC) * * * * Physician Interpretation * * * * CT ANGIOGRAM OF THE ABDOMEN AND PELVIS HISTORY: Mesenteric ischemia TECHNIQUE: High-resolution contrast-enhanced helical CT of the abdomen and pelvis was performed, timed to the arterial phase. 3D maximum intensity projection images were created, reviewed and archived. Total of 100 ml of Omnipaque 350 was injected IV during the examination. The study was performed without oral contrast. The patient tolerated the injection without complications. Dose-Length Product (DLP): 331 mGy*cm. CT Dose Reduction Employed: Automated exposure control(AEC) and iterative recon RESULT: COMPARISON: Comparison is made with prior study performed on 05/28/2019. ABDOMEN: Images of the aorta demonstrate diffuse atherosclerotic change without significant focal stenosis or aneurysm. There is extensive mural thrombus or soft plaque in the infrarenal abdominal aorta. There is been interval partial recanalization of some of the mural thrombus with a linear calcification noted within the abdominal aortic lumen noted on image 228 series 302. 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 There is flow distal to the stent near the celiac trifurcation. There are prominent intrapancreatic collaterals, as well as a prominent gastroduodenal artery. This is unchanged from the prior examination though the intrapancreatic collaterals are better appreciated on today's examination. Superior mesenteric artery demonstrates a stent with minimal neointimal hyperplasia and is widely patent. Flow is noted in the SMA distally.. Inferior mesenteric artery demonstrates short segment occlusion at its origin. Flow is noted just distal to the origin. This is unchanged. There is a single right renal artery. Right renal artery demonstrates severe ostial stenosis which is stable. There is a single left renal artery. Left renal artery demonstrates mild ostial narrowing which is not significantly changed. RIGHT LEG: Right common iliac artery is stented with minimal neointimal hyperplasia and is otherwise patent. Right external iliac artery is stented and the stent is patent. Right internal iliac artery is occluded with distal reconstitution of flow in the pelvic branches. Right common femoral artery demonstrates atherosclerotic calcific aeration soft plaque with resultant moderate narrowing which isunchanged. Right profunda femoris artery patent in its visualized portion. Right superficial femoral artery demonstrates moderate narrowing at the origin though the remainder of the visualized vessel appears to bepatent. LEFT LEG: Left common iliac artery is severely diseased with atherosclerotic calcifications of soft plaque with resultant severe stenosis proximally. There is an area of ectatic dilatation measuring approximately 14 mm with significant in situ thrombosis in moderate luminal narrowing which is also unchanged. Left external iliac artery severely narrowed proximally. There is moderate narrowing of the vessel secondary to scarring calcifications which is unchanged. Left internal iliac artery demonstrates multifocal severe narrowing though flow is noted distally. Left common femoral artery demonstrates atherosclerotic calcifications and severe narrowing just above the bifurcation Left profunda femoris artery is patent in its visualized portions. Left superficial femoral artery is moderately narrowed in its visualized portions. NONVASCULAR FINDINGS: Industrial Sales Representative (topogram) images: Unremarkable. Lung Bases: Minimal atelectasis Abdomen and pelvis: Liver: No mass. Spleen: No mass. No splenomegaly. Pancreas: No mass or duct dilation. Biliary: No bile duct dilation. Gallbladder is collapsed. Adrenals: No mass. Kidneys: No mass, calculus or hydronephrosis. GI tract: No dilation or wall thickening. There is prominent vascularity along the anterior aspect of the right colon which is best seen on image 112 series 301. Colonic diverticula without evidence ofdiverticulitis Lymph nodes: No abdominal or pelvic lymphadenopathy. Mesentery/Peritoneum: No ascites or mass. Pelvis: No mass, ascites or fluid collection. Bones/Soft Tissues: Degenerative changes. 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 THERE IS A PATENT SUPERIOR MESENTERIC ARTERY STENT WITH A NETWORK OF COLLATERALS AROUND THE GASTRODUODENAL ARTERY, AND THE PANCREATIC PARENCHYMA. OVERALL THIS IS UNCHANGED FROM THE PRIOR EXAMINATION. PATENT RIGHT COMMON AND EXTERNAL ILIAC ARTERY STENTS. SEVERE LEFT COMMON ILIAC ARTERY DISEASE. THERE IS SEVERE DISTAL LEFT COMMON FEMORAL ARTERY DISEASE. PROMINENT VASCULARITY INVOLVING THE ANTERIOR ASPECT OF RIGHT COLON. THIS COULD BEEN SECONDARY TO THE ALTERED VASCULATURE THOUGH AN ARTERIOVENOUS MALFORMATION CANNOT BE EXCLUDED. Instrument Sterilizer: [facility] Transcribe Date/Time: Nov 08 2022 2:05P Dictated by : HEATHER PRATT MD This examination was interpreted and the report reviewed and electronically signed by: HEATHER PRATT MD on Nov 08 2022 7:54PM EST [id number]^ACN Generic External Data Provider [facility] Final Result documented in this encounter Visit Diagnoses Not on filedocumented in this encounter Care Teams Silk Screen Layout Drafter Relationship Specialty Start Date End Date Chary Calloway MD [address] [place] [address] PCP - [employer] 04/16/17 Chary Calloway MD [address] [place] [address] PCP - General Family Medicine 09/04/22 documented as of this encounter
--- OUTSIDE RECORDS SUMMARY | 2024-09-09 09:09 | XMS_ITS | Encounter Summary ---
Author Organization [facility] Address [id number] [address] [place] [address] Care Team Providers Care Features Reporter Name Role Phone Chary Calloway MD Primary Care Provider [phone] Encounter Details Date Type Department Care Team (Late st Contact Info) Description 10/28/2021 Abstract [facility] [address] [place] [address] External, Scanning Provider Social History [...] often do you attend chur ch or anglican services? Never 11/01/2020 Do you belong to any clubs o r organizations such as faith groups, unions, fraternal or athletic groups, or [...] Recorded Do you need help finding a [employer] career center and/or a training program? No [...] Office Visit [facility] [address] [place] [address] [place] [address] Roe Harrison MD [facility] [place] [address] 09/18/2024 9:30 AM EDT Hospital Encounter [facility] - Cardiac Cath [address] [place] [address] Aron Ruvalcaba MD [address] [place] [address] Renal artery stenosis 09/18/2024 9:30 AM EDT - 09/18/2024 10:30 AM EDT Surgery [facility] - Cardiac Cath [address] [place] [address] Aron Ruvalcaba MD [address] [place] [address] Vascular Invasive- bilateral renal artery angiogram with possible intervention 09/30/2024 9:00 AM EDT Office Visit [facility] [address] [place] [address] Mona Carroll, PAIsraelC [address] [place] [address] 2024 10:00 AM EDT Appointment [place] - CT Imaging [address] [place] [address] Phillip Flores MD [address] [place] [address] 10/31/2024 3:15 PM EDT Office Visit [facility] - Medical Oncology [facility] [place] [address] Phillip Flores MD [address] [place] [address] 02/17/2025 1:15 PM EST Office Visit [facility] [address] [place] [address] [place] [address] [place] [phone] Roe Harrison MD [facility] [place] [address] documented as of this encounter Procedures Procedure Name Priority Date/Time Associated Diagnosis Comments COMPREHENSIVE METABOLIC PANEL Routine 09/13/2021 documented in this encounter Results * Comprehensive metabolic panel (09/13/2021) 09/13/2021 us Scanning Provider External LAB BLOOD ORDERABLES Final Result MANUALLY TRANSCRIBED RESULTS documented in this encounter Visit Diagnoses Not on filedocumented in this encounter Additional Health Concerns Infection Onset Date Last Indicated Resolved Time Enteric Rule-Out 04/24/2024 04/24/2024 04/25/2024 2:05 PM EST Assessment Noted Time PHQ-9 Depression Total Score: 0 04/24/19 8:56 AM EST documented as of this encounter Care Teams Features Reporter Relationship Specialty Start Date End Date Chary Calloway MD [address] [place] [address] PCP - General Family Medicine 04/10/24 documented as of this encounter
--- OUTSIDE RECORDS SUMMARY | 2024-09-09 09:09 | XMS_ITS | Encounter Summary ---
Author Organization [facility] Address [facility] [place] [address] Care Team Providers Care Cattle Care Worker Name Role Phone Elisabeth Melendez MD Unavailable [phone] Chary Calloway MD Primary Care Provider [phone] Source Comments In the event this information is protected by the Federal Confidentiality of Alcohol and Drug AbusePatient Records regulations: The Federal rules restrict any use of the information to criminally investigate or prosecute any alcohol or drug abuse patient.[facility] Encounter Details Date Type Department Care Team (Late st Contact Info) Description 03/08/2022 Lab Requisition [facility] [address] [place] [address] Genesis Suarez V, MD [address] [place], [place] [id number] Person encountering health services to consult on behalf of another person Social History Tobacco Use Types Packs/Day Years Used Date Smoking Tobacco: Every Day Cigarettes 1 55 Cigars Smokeless Tobacco: Never Comments:cigars Alcohol Use Standard Drinks/Week Comments Yes 3 (1 standard drink = 0.6 oz pur e alcohol) occasional Area Deprivation Index Answer Date Trevin rded National Score (1-100), lower number is lower ri sk 97 11/18/2021 State Score (1-10), lower number is lower risk N ot on file 11/18/2021 Data from: https://www.neighborhoodatlas.medicine.[facility].edu/. Last address used for calculation [address] 11/18/2021 Sex and Gender Information Value Date Recorded Sex Assigned at Not on file Legal Sex Male 8:07 AM EST Gender Identity Not on file Sexual Orientation Not on file documented as of this encounter Plan of Treatment Upcoming Encounters Date Type Department Care Team (Late st Contact Info) Description 02/02/2025 9:00 AM EDT Office Visit Vascular Lab [address], [place] [address] [facility] [address] Mc, [employer] Record Clerk Frvw [address] [place] [address] 6 MONTH PAD/CAROTID/MESENTERI C FOLLOW UP 02/02/2025 10:00 AM EDT Office Visit Vascular Lab [address], [place] [address] [facility] [place] [address] Mc, [employer] Record Clerk Frvw [address] [place] [address] 6 MONTH PAD/CAROTID/MESENTERI C FOLLOW UP 02/02/2025 11:00 AM EDT Office Visit Vascular Lab [address] [address], [place] 3 [facility] [place] [address] Mc, [employer] Record Clerk Frvw [address] [place] [address] 6 MONTH PAD/CAROTID/MESENTERI C FOLLOW UP 02/02/2025 12:00 PM EDT Office Visit Vascular Surgery [address] [place] [address] [place] [address] Roddy [place] [address] 6 MONTH PAD/CAROTID/MESENTERI C FOLLOW UP documented as of this encounter Procedures Procedure Name Priority Date/Time Associated Diagnosis Comments SURGICAL PATHOLOGY REFERENCE LAB CONSULT Routine 03/08/2022 3:39 PM EST Person encountering health services to consult on behalf of another person documented in this encounter Results * SURGICAL PATHOLOGY REFERENCE LAB CONSULT (03/08/2022 3:39 PM EST) Case Report Surgical Pathology Report Case: [id number] Authorizing Provider: Genesis Suarez V, MD Collected: 03/08/2022 03:39 PM Ordering Location: [facility] Main Received: 03/08/2022 03:38 PM Pathologist: Lizz Sarmiento MD Specimen: SLIDE(S), 4 Slides [id number] 03/10/2022 11:18 AM [facility] FINAL DIAGNOSIS A. Skin, left posterior ear, excision ([id number]; A1-A4; 03/03/2022): -Prurigo nodule with pseudoepitheliomatous hyperplasia, epidermal inclusion cysts, and an incidental intradermal nevus, see comment. JKJE 03/10/2022 03/10/2022 11:18 AM [facility] at 1118 EST Diagnosis Comment Many thanks for sending in consultation this excision from the left posterior ear of a 76-year-old male. Histologic sections demonstrate markedly acanthotic epidermis with focal erosion, compact hyperkeratosis, parakeratosis, hypergranulosis and widening of the follicular ostia overlying a dermis with perifollicular inflammation and dermal fibrosis. Within the dermis there are large epidermal inclusion cysts with keratinaceous debris. An incidental intradermal nevus is also present. The melanocytes have cytologically bland nuclei and show maturation with descent. Dermal mitotic figures are not identified Overall, the findings are those of prurigo nodule with pseudoepitheliomatous hyperplasia, epidermal inclusion cyst and an incidental intradermal nevus. A malignancy is not identified. Clinical correlation is recommended. Thank you for sending this case in consultation. Please call the Dermatopathology Consultation Service at [phone] with questions or if additional follow-up information becomes available regarding this patient. This case was reviewed in conjunction with the Dermatopathology Fellow, Dr. Silva. 03/10/2022 11:18 AM [facility] Clinical History CONSULT REQUESTED 03/10/2022 11:18 AM [facility] Performing Lab Diagnostic interpretation performed at [facility], [address] [place], [place] [address]IA# [id number] Slip Cover Operator: Severiano Rodríguez M.D. 03/10/2022 11:18 AM EST [facility] Blocks or Slides MICROSCOPE SLIDE / Unknown 03/08/2022 3:39 PM EST 03/08/2022 3:38 PM EST us Genesis Shay MD SURGICAL PATHOLOGY Final Result [facility] [address] [place] [address] [address] [place] [address], documented in this encounter Visit Diagnoses Diagnosis Person encountering health services to consult on behalf of another person Other person consulting on behalf of another person documented in this encounter Care Teams Cattle Care Worker Relationship Specialty Start Date End Date Chary Calloway MD [address] [place] [address] PCP - General Family Medicine 09/01/21 Elisabeth Melendez MD [address] [place] [address] Physician Ent - Otolaryngology 10/29/15 documented as of this encounter
--- OUTSIDE RECORDS SUMMARY | 2024-09-09 09:09 | XMS_ITS | Encounter Summary ---
Author Organization [facility] Address [facility] [place]-[id number] [address] [place] [address] Care Team Providers Care Home Health Care Physician Name Role Phone Chary Calloway MD Primary Care Provider [phone] Encounter Details Date Type Department Care Team (Late st Contact Info) Description 10/28/2021 Abstract [facility] [address] [place] [address] External, Scanning Provider Social History [...] often do you attend chur ch or yazdanism services? Never 11/01/2020 Do you belong to any clubs o r organizations such as mandaen groups, unions, fraternal or athletic groups, or [...] Recorded Do you need help finding a [employer] career center and/or a training program? No [...] Office Visit [facility] [address] [place] [address] [place] [address] Roe Harrison MD [facility] [place] [address] 09/18/2024 9:30 AM EDT Hospital Encounter [facility] - Cardiac Cath [address] [place] [address] Aron Ruvalcaba MD [address] [place] [address] Renal artery stenosis 09/18/2024 9:30 AM EDT - 09/18/2024 10:30 AM EDT Surgery [facility] - Cardiac Cath [address] [place] [address] Aron Ruvalcaba MD [address] [place] [address] Vascular Invasive- bilateral renal artery angiogram with possible intervention 09/30/2024 9:00 AM EDT Office Visit [facility] [address] [place] [address] Mona Carroll, PAIsraelC [address] [place] [address] 2024 10:[address] [facility] - CT Imaging [address] [place] [address] Phillip Flores MD [address] [facility] [address] [address] [place] [address] 10/31/2024 3:15 PM EDT Office Visit [facility] - Medical Oncology [facility] [place] [address] Phillip Flores MD [address] [place] [address] 02/17/2025 1:15 PM EST Office Visit [facility] [address] [place] [address] [place] [address] Roe Harrison MD [facility] [place] [address] documented as of this encounter Procedures Procedure Name Priority Date/Time Associated Diagnosis Comments CBC WITH AUTO DIFFERENTIAL Routine 06/07/2021 documented in this encounter Results * CBC auto differential (06/07/2021) 06/07/2021 us Scanning Provider External LAB BLOOD ORDERABLES Final Result MANUALLY TRANSCRIBED RESULTS documented in this encounter Visit Diagnoses Not on filedocumented in this encounter Additional Health Concerns Infection Onset Date Last Indicated Resolved Time Enteric Rule-Out 04/24/2024 04/24/2024 04/25/2024 2:05 PM EST Assessment Noted Time PHQ-9 Depression Total Score: 0 04/24/19 8:56 AM EST documented as of this encounter Care Teams Home Health Care Physician Relationship Specialty Start Date End Date Chary Calloway MD [address] [place] [address] PCP - General Family Medicine 04/10/24 documented as of this encounter
--- OUTSIDE RECORDS SUMMARY | 2024-09-09 09:09 | XMS_ITS | Encounter Summary ---
Author Organization [employer] Address [id number] [address] [place] [address] Care Team Providers Care Baker Second Name Role Phone Chary Calloway MD Primary Care Provider [phone] Encounter Details Date Type Department Care Team (Late st Contact Info) Description 11/29/2020 Telephone [facility] [address] [place] [address] Philly Perry Social History Tobacco Use Types Packs/Day Years [...] often do you attend chur ch or worship services? Never 11/01/2020 Do you belong to any clubs o r organizations such as bahai groups, unions, fraternal or athletic groups, or [...] Recorded Do you need help finding a [employer] [facility] career center and/or a training program? No [...] have Coronavirus / COVID-19? No / Unsure 11/30/2020 11:03 AM EDT documented as of this encounter Miscellaneous Notes * Telephone Encounter - Philly Perry - 11/29/2020 9:25 AM EDT ----- Message from Roe Harrison MD sent at 11/29/2020 8:49 AM EDT ----- Regarding: Appt Sunday Philly Alonso was in the ER with a scrotal laceration. Needs to get looked at this Sunday. Looks like Mr Eduardo didn't do his Litholink (unless something changed) so he can get rescheduled anyway and put Mr Drew in there. * Telephone Encounter - Philly Perry - 11/29/2020 9:25 AM EDT CALLED 11/29/20 @ 9:25AM-PHONE KEPT RINGING & WENT TO DIAL TONE-NO VM documented in this encounter Plan of Treatment Upcoming Encounters Date Type Department Care Team (Latest Contact Info) Description 09/09/2024 12:00 PM EDT Office Visit [facility] [address] [place] [address] [place] [phone] Roe Harrison MD [address] [place] [address] 09/18/2024 9:30 AM EDT Hospital Encounter [facility] - Cardiac Cath [address] [place] [address] Aron Ruvalcaba MD [address] [place] [address] Renal artery stenosis 09/18/2024 9:30 AM EDT - 09/18/2024 10:30 AM EDT Surgery [facility] - Cardiac Cath [address] [place] [address] Aron Ruvalcaba MD [address] [place] [address] Vascular Invasive- bilateral renal artery angiogram with possible intervention 09/30/2024 9:00 AM EDT Office Visit [facility] [address] [place] [address] Mona Carroll, PAIsraelC [address] [place] [address] 2024 10:00 AM EDT Appointment [facility] - CT Imaging [address] [place] [address] Phillip Flores MD [address] [facility] [address] [place] [id number] 10/31/2024 3:15 PM EDT Office Visit [facility] - Medical Oncology [address] [place] [address] Phillip Flores MD [address] [facility] [address] [place] [address] 02/17/2025 1:15 PM EST Office Visit [facility] [address] [place] [address] [place] [address] Roe Harrison MD [facility] [place], [place] [address] documented as of this encounter Visit Diagnoses Not on filedocumented in this encounter Additional Health Concerns Infection Onset Date Last Indicated Resolved Time Enteric Rule-Out 04/24/2024 04/24/2024 04/25/2024 2:05 PM EST Assessment Noted Time PHQ-9 Depression Total Score: 0 04/24/19 8:56 AM EST documented as of this encounter Care Teams Baker Second Relationship Specialty Start Date End Date Chary Calloway MD [address] [place], [place] [phone] PCP - General Family Medicine 04/10/24 documented as of this encounter
--- OUTSIDE RECORDS SUMMARY | 2024-09-09 09:09 | XMS_ITS | Encounter Summary ---
Author Organization [facility] Address [facility]-[id number] [address] [place] [address] Care Team Providers Care Branch Controller Name Role Phone Chary Calloway MD Primary Care Provider Encounter Details Date Type Department Care Team (Late st Contact Info) Description 10/28/2021 Abstract [facility] [address] [place] [address] External, Scanning Provider Social History [...] often do you attend chur ch or bahai services? Never 11/01/2020 Do you belong to any clubs o r organizations such as muslim groups, unions, fraternal or athletic groups, or [...] Recorded Do you need help finding a Remote Assistant [employer] career center and/or a training program? No [...] Office Visit [facility] [address] [place] [address] [place] [address] Roe Harrison MD [facility] [place] [address] 09/18/2024 9:30 AM EDT Hospital Encounter [facility] - Cardiac Cath [address] [place] [address] Aron Ruvalcaba MD [address] [place] [address] Renal artery stenosis 09/18/2024 9:30 AM EDT - 09/18/2024 10:30 AM EDT Surgery [facility] - Cardiac Cath [address] [place] [address] Aron Ruvalcaba MD [address] [place] [address] Vascular Invasive- bilateral renal artery angiogram with possible intervention 09/30/2024 9:00 AM EDT Office Visit [facility] [address] [place] [address] Mona Carroll, PAIsraelC [address] [place] [address] 2024 10:00 AM EDT Appointment [facility] - CT Imaging [address] [place] [address] Phillip Flores MD [address] [place] [address] 10/31/2024 3:15 PM EDT Office Visit [facility] - Medical Oncology [facility] [place] [address] Phillip Flores MD [address] [place] [address] 02/17/2025 1:15 PM EST Office Visit [facility] [address] [place] [address] [address] [place] [address] Roe Harrison MD [facility] [place] [address] documented as of this encounter Visit Diagnoses Not on filedocumented in this encounter Additional Health Concerns Infection Onset Date Last Indicated Resolved Time Enteric Rule-Out 04/24/2024 04/24/2024 04/25/2024 2:05 PM EST Assessment Noted Time PHQ-9 Depression Total Score: 0 04/24/19 20 8:56 AM EST documented as of this encounter Care Teams Branch Controller Relationship Specialty Start Date End Date Chary Calloway MD [address] [place] [address] PCP - General Family Medicine 04/10/24 documented as of this encounter
--- OUTSIDE RECORDS SUMMARY | 2024-09-09 09:09 | XMS_ITS | Encounter Summary ---
Author Organization [facility] Address [id number] [address] [place] [address] Care Team Providers Care Shipyard Painting Supervisor Name Role Phone Chary Calloway MD Primary Care Provider [phone] Encounter Details Date Type Department Care Team (Late st Contact Info) Description 09/07/2021 Abstract [facility] [address] [place] [address] External, Scanning Provider Social History [...] any clubs o r organizations such as pentecostalism groups, unions, fraternal or athletic groups, or [...] Recorded Do you need help finding a [employer] career center and/or a training program? No [...] Description 09/09/2024 12:00 PM EDT Office Visit [facility] [address] [place] [address] [place] [address] Roe Harrison MD [address] [place] [address] 09/18/2024 9:30 AM EDT Hospital Encounter [facility] - Cardiac Cath [address] [place] [address] Aron Ruvlacaba MD [address] [place] [address] Renal artery stenosis 09/18/2024 9:30 AM EDT - 09/18/2024 10:30 AM EDT Surgery [facility] - Cardiac Cath [address] [place] [address] Aron Ruvalcaba MD [address] [place] [address] Vascular Invasive- bilateral renal artery angiogram with possible intervention 09/30/2024 9:00 AM EDT Office Visit [facility] [address] [place] [address] Mona Carroll, PA-C [address] [place] [address] 2024 10:00 AM EDT Appointment [facility] - CT Imaging [address] [place] [address] Phillip Flores MD [address] [facility] [address] [place] [id number] 10/31/2024 3:15 PM EDT Office Visit [facility] - Medical Oncology [address] [place] [phone] Phillip Flores MD [address] [facility] [address] [place] [address] 02/17/2025 1:15 PM EST Office Visit [facility] [address] [place] [address] [place] [address] Roe Harrison MD [address] [place] [address] documented as of this encounter Procedures Procedure Name Priority Date/Time Associated Diagnosis Comments PROSTATIC SPECIFIC ANTIGEN SCREEN Routine 06/07/2021 documented in this encounter Results * Prostatic specific antigen screen (06/07/2021) 06/07/2021 us Scanning Provider External LAB [...] documented as of this encounter Care Teams Shipyard Painting Supervisor Relationship Specialty Start Date End Date Chary Calloway MD [address] [address] PCP - General Family Medicine 04/10/24 documented as of this encounter
--- OUTSIDE RECORDS SUMMARY | 2024-09-09 09:09 | XMS_ITS | Encounter Summary ---
Author Organization [facility] Address [address] [place] [address] Care Team Providers Care Assembler Fluorescent Lights Name Role Phone Chary Calloway MD Unavailable Chary Calloway MD Primary Care Provider [phone] Reason for Visit * Reason Comments Med Refill Encounter Details Date Type Department Care Team (Late st Contact Info) Description 03/20/2023 Refill [facility] [address] [place] [phone] Jake Lainez MD [address] [facility] [address] [place] [address] Social History Tobacco Use Types Packs/Day Years [...] encounter Miscellaneous Notes * Telephone Encounter - Loraine Pierce - 03/20/2023 11:01 AM EST Patient needs to be seen documented in this encounter Plan of Treatment Upcoming Encounters Date Type Department Care Team (Late st Contact Info) Description 09/17/2024 11:00 AM EDT Office Visit [facility] [address] [place] [phone] Jake Lainez MD [address] [facility] [address] [id number] 10/03/2024 11:00 AM EDT Office Visit [facility] [address] [place] [address] Ruby Arteaga MD [address] [place], [place] [phone] 11/12/2024 10:40 AM EDT Office Visit [facility] [address] [place] [phone] Chary Calloway MD [address] [place] [address] 08/26/2025 1:05 PM EDT Office Visit [facility] [address] [place] [address] Ruby Arteaga MD [address] [place], [place] [phone] documented as of this encounter Goals Goal [...] documented as of this encounter Care Teams Assembler Fluorescent Lights Relationship Specialty Start Date End Date Chary Calloway MD [address] [place], [place] [phone] PCP - [employer] 04/16/17 Chary Calloway MD [address] [place] [address] PCP - General Family Medicine 09/04/22 documented as of this encounter
--- OUTSIDE RECORDS SUMMARY | 2024-09-09 09:09 | XMS_ITS | Encounter Summary ---
Author Organization [employer] Sys [employer] Address [facility] [place] [facility]-[id number] [address] [place] [address] Care Team Providers Care Supervisor Final Name Role Phone Chary Calloway MD Primary Care Provider [phone] Encounter Details Date Type Department Care Team (Late st Contact Info) Description 08/29/2024 Telephone [facility] [address] [place] [address] [place] [address] [place] [address] Roe Harrison MD [address] [place] [address] Social History Tobacco Use Types Packs/Day Years Used Date Smoking Tobacco: Former Cigarettes 1 60 Q uit: 02/2023 Smokeless Tobacco: Never Comments:and cigars occassio nal Alcohol Use Standard Drinks/Week Comments Yes 1 (1 standard drink = 0.6 oz pur e alcohol) [facility] Utilities Answer Date Recorded In the past 12 months has [employer] electric, gas, oil, or water company threatened [...] often do you attend chur ch or protestant services? Never 04/24/2024 Do you belong to any clubs o r organizations such as spiritism groups, unions, fraternal or athletic groups, or [...] Answer Date Recorded Total Score 0 04/23/2024 [facility] of Occupat ional Health - Occupational Stress [...] Recorded Do you need help finding a [facility] career center and/or a training program? No [...] PM EST documented as of this encounter Miscellaneous Notes * Telephone Encounter - Claudine Phoenix - 08/29/2024 11:44 AM EDT called and stated that pt has a lump on his testicle. I advised to call pcp to get checked as Dr. Harrison does not have any sooner openings in [facility]. voice understanding. documented in this encounter Plan of Treatment Upcoming Encounters Date Type Department Care Team (Latest Contact Info) Description 09/09/2024 12:00 PM EDT Office Visit [facility] [address] [place] [address] [place] [address] Roe Harrison MD [address] [place], [place] [phone] 09/18/2024 9:30 AM EDT Hospital Encounter [facility] - Cardiac Cath [address] [place] [phone] Aron Ruvalcaba MD [address] [place] [address] Renal artery stenosis 09/18/2024 9:30 AM EDT - 09/18/2024 10:30 AM EDT Surgery [facility] - Cardiac Cath [address] [place] [address] Aron Ruvalcaba MD [address] [place] [address] Vascular Invasive- bilateral renal artery angiogram with possible intervention 09/30/2024 9:00 AM EDT Office Visit [facility] [address] [place] [phone] Mona Carroll, PA-C [address] [place] [address] 2024 10:00 AM EDT Appointment [facility] - CT Imaging [address] [place] [phone] Phillip Flores MD [address] [facility] [address] [place] [address] 10/31/2024 3:15 PM EDT Office Visit Adilene L[facility]pez [facility] - Medical Oncology [address] [place] [phone] Phillip Flores MD [address] [facility] [address] [place] [phone] 02/17/2025 1:15 PM EST Office Visit [facility] [address] [facility] [address] [facility] [place] [phone] Roe Harrison MD [address] [place] [address] documented as of this encounter Goals Goal Patient Goal Type Associated Problems Recent Progress Patient-Stated? Author home General Yes Hali Márquez LSW Note: Evaluation of progress towards goal: Pt's plan is still in progress documented as of this encounter Visit Diagnoses Not on filedocumented in this encounter Additional Health Concerns Assessment Noted Time PHQ-9 Depression Total Score: 0 04/23/19 25 2:58 PM EST documented as of this encounter Care Teams Supervisor Final Relationship Specialty Start Date End Date Chary Calloway MD [address] [place] [address] PCP - General Family Medicine 04/10/24 documented as of this encounter
--- OUTSIDE RECORDS SUMMARY | 2024-09-09 09:09 | XMS_ITS | Encounter Summary ---
Author Organization [facility] [employer] Sys [employer] Address [facility]-[id number] [address] [place] [address] Care Team Providers Care Road Tester Name Role Phone Chary Calloway MD Primary Care Provider [phone] Encounter Details Date Type Department Care Team (Late st Contact Info) Description 10/28/2021 Orders Only [facility] [address] [place] [phone] Amelia Mancini Elevated PSA Social History Tobacco Use Types Packs/Day Years [...] often do you attend chur ch or restoration services? Never 11/01/2020 Do you belong to any clubs o r organizations such as presybeterian groups, unions, fraternal or athletic groups, or [...] Recorded Do you need help finding a [employer] career center and/or a training program? No [...] Office Visit [facility] [address] [place] [address] [place] [address] Roe Harrison MD [address] [place] [address] 09/18/2024 9:30 AM EDT Hospital Encounter [facility] - Cardiac Cath [address] [facility] [place] [address] Aron Ruvalcaba MD [address] [place] [address] Renal artery stenosis 09/18/2024 9:30 AM EDT - 09/18/2024 10:30 AM EDT Surgery [facility] - Cardiac Cath [address] [place] [address] Aron Ruvalcaba MD [address] [place] [address] Vascular Invasive- bilateral renal artery angiogram with possible intervention 09/30/2024 9:00 AM EDT Office Visit [facility] [address] [place] [address] Mona Carroll, MARIAM [address] [place] [address] 2024 10:00 AM EDT Appointment [facility] - CT Imaging [address] [place] [address] Phillip Flores MD [address] [facility] [place] [address] 10/31/2024 3:15 PM EDT Office [facility] - Medical Oncology [address] [place] [phone] Phillip Flores MD [address] [place] [address] 02/17/2025 1:15 PM EST Office Visit [facility] [address] [place] [address] [place] [address] Roe Harrison MD [facility] [place] [address] documented as of this encounter Visit Diagnoses Diagnosis Elevated PSA Elevated prostate specific antigen (PSA) Renal artery stenosis- Primary Atherosclerosis of renal artery Renal artery stenosis Atherosclerosis of renal artery documented in this encounter Additional Health Concerns Infection Onset Date Last Indicated Resolved Time Enteric Rule-Out 04/24/2024 04/24/2024 04/25/2024 2:05 PM EST Assessment Noted Time PHQ-9 Depression Total Score: 0 04/24/19 20 8:56 AM EST documented as of this encounter Care Teams Road Tester Relationship Specialty Start Date End Date Chary Calloway MD [address] [place] [address] PCP - General Family Medicine 04/10/24 documented as of this encounter
--- OUTSIDE RECORDS SUMMARY | 2024-09-09 09:10 | XMS_ITS | Encounter Summary ---
Author Organization [facility] Address [address] [facility] [[email or web address] [address] Care Team Providers Care Dyer And Washer Name Role Phone Chary Calloway MD Unavailable Chary Calloway MD Primary Care Provider [phone] Encounter Details Date Type Department Care Team (Late Contact Info) Description 09/17/2023 Orders Only [facility] [address] [place] [address] Chary Calloway MD [address] [place] [address] Social History Tobacco Use Types Packs/Day Years Used Date Smoking Tobacco: Former Cigarettes 1 965 - 02/2023 Smokeless Tobacco: Never Comments:1-9 cigs/ day Alcohol Use Standard Drinks/Week Comments Not Currently 0 (1 standard drink = 0.6 oz pure alcohol) caffeine intake : 3-4 cups per day ; coffee PHQ-2 Answer Date Recorded Patient Health Questionnaire-2 Score 0 04/19/2023 Sex and Gender Information Value Date Recorded Sex Assigned at Not on file Legal Sex Male 6:48 PM EDT Gender Identity Not on file Sexual Orientation Not on file documented as of this encounter Plan of Treatment Upcoming Encounters Date Type Department Care Team (Late Contact Info) Description 09/17/2024 11:00 AM EDT Office Visit [facility] [address] [facility] [place] [address] Jake Lainez MD [address] [facility] [address] [place] [address] 10/03/2024 11:00 AM EDT Office Visit [facility] [address] [place] [phone] Ruby Arteaga MD [address] [place] [address] 11/12/2024 10:40 AM EDT Office Visit [facility] [address] [place] [phone] Chary Calloway MD [address] [place] [address] 08/26/2025 1:05 PM EDT Office Visit [facility] [address] [place] [address] Ruby Arteaga MD [address] [place] [address] documented as of this encounter Goals Goal [...] documented as of this encounter Care Teams Dyer And Washer Relationship Specialty Start Date End Date Chary Calloway MD [address] [place] [address] PCP - [employer] 04/16/17 Chary Calloway MD [address] [place] [address] PCP - General Family Medicine 09/04/22 documented as of this encounter
--- OUTSIDE RECORDS SUMMARY | 2024-09-09 09:10 | XMS_ITS | Encounter Summary ---
Author Organization [facility] [employer] Address [id number] [address] [place] [address] Care Team Providers Care Electric Utility Lineworker Name Role Phone Chary Calloway MD Primary Care Provider [phone] Encounter Details Date Type Department Care Team (Late st Contact Info) Description 05/16/2024 Orders Only [facility] [address] [place] [phone] External, Scanning Provider Social History Tobacco Use Types Packs/Day Years Used Date Smoking Tobacco: Former Cigarettes Q uit: 02/2023 Smokeless Tobacco: Never Comments:and cigars occassio nal Alcohol Use Standard Drinks/Week Comments Yes 1 (1 standard drink = 0.6 oz pur e alcohol) beer occasionally [employer] Utilities Answer Date Recorded In the past 12 months has [employer], gas, oil, or water [employer] threatened to shut off services in your [...] 04/24/2024 How often do you attend chur or jehovah's witness services? Never 04/24/2024 Do you belong to [...] Answer Date Recorded Total Score 0 04/23/2024 [facility] of Occupat ional Health - Occupational Stress [...] Recorded Do you need help finding a l ocal career center and/or a training program? No [...] Office Visit [facility] [address] [place] [address] [place] [address] Roe Harrison MD [address] [place] [address] 09/18/2024 9:30 AM EDT Hospital Encounter [facility] - Cardiac Cath [address] [place] [phone] Aron Ruvalcaba MD [address] [place] [address] Renal artery stenosis 09/18/2024 9:30 AM EDT - 09/18/2024 10:30 AM EDT Surgery [facility] - Cardiac Cath [address] [place] [address] Aron Ruvalcaba MD [address] [place] [address] Vascular Invasive- bilateral renal artery angiogram with possible intervention 09/30/2024 9:00 AM EDT Office Visit [facility] [address] [place] [address] Mona Carroll, PA-C [address] [place] [address] 2024 10:00 AM EDT Appointment [facility] - CT Imaging [address] [place] [phone] Phillip Flores MD [address] [place] [phone] 10/31/2024 3:15 PM EDT Office Visit Adilene López [facility] - Medical Oncology [address] [place] [phone] Phillip Flores MD [address] [place] [phone] 02/17/2025 1:15 PM EST Office Visit [facility] [address] [place] [phone] Roe Harrison MD [address] [place] [address] documented as of this encounter Goals Goal Patient Goal Type Associated Problems Recent Progress Patient-Stated? Author home General Yes Hali Márquez LSW Note: Evaluation of progress towards goal: Pt's plan is still in progress documented as of this encounter Procedures Procedure Name Priority Date/Time Associated Diagnosis Comments MULTIPLE LABS Routine 05/12/2024 8:32 AM EST ECG 12-LEAD Routine 05/12/2024 8:31 AM EST documented in this encounter Results * Multiple labs (05/12/2024 8:32 AM EST) us Scanning Provider External [facility] Final Result MANUALLY TRANSCRIBED RESULTS * ECG 12 lead (05/12/2024 8:31 AM EST) us Scanning Provider External ECG ORDERABLES Final Result MANUALLY TRANSCRIBED RESULTS documented in this encounter Visit Diagnoses Not on filedocumented in this encounter Additional Health Concerns Assessment Noted Time PHQ-9 Depression Total Score: 0 04/23/19 25 2:58 PM EST documented as of this encounter Care Teams Electric Utility Lineworker Relationship Specialty Start Date End Date Chary Calloway MD [address] [place] [address] PCP - General Family Medicine 04/10/24 documented as of this encounter
--- OUTSIDE RECORDS SUMMARY | 2024-09-09 09:10 | XMS_ITS | Clinical Summary ---
Author Organization [facility] Address [address] [place] [id number] Care Team Providers Care Medical Office Professional Instructor Name Role Phone Elisabeth Melendez MD Unavailable [phone] Chary Calloway MD Primary Care Provider [phone] Allergies No known active allergies Medications * This document contains information received from the source organization and may not represent a complete record from that organization. aspirin, enteric coated 81 mg EC tablet Take 81 mg by mouth once daily. Active MULTIVITAMIN WITH MINERALS (ONE-A-DAY 50 PLUS ORAL) Take by mouth once daily. Active amLODIPine (NORVASC) 10 mg tablet Take 10 mg by mouth once daily. Active metFORMIN (GLUCOPHAGE) 500 mg tablet Take 1,000 mg by mouth twice daily with meals. Active lisinopril (ZESTRIL, PRINIVIL) 40 mg tablet Take 40 mg by mouth once daily. Active SITagliptin (JANUVIA) 100 mg tablet Take 100 mg by mouth once daily. Active bisoprolol (ZEBETA) 5 mg tablet Take 5 mg by mouth once daily. Active clopidogrel (PLAVIX) 75 mg tablet Take 1 tablet by mouth once daily. 90 tablet 1 03/07/2021 Active cholecalciferol (VITAMIN D3) 1,000 unit tab tablet Take 1,000 Units by mouth once daily. Active ferrous fumarate/docusa te (FERA ORAL) Take by mouth once daily. Active vit B complex no.12/niacin,B3 , (VITAMIN B COMPLEX NO.12-NIACIN ORAL) Take by mouth once daily. Active pantoprazole DR (PROTONIX) 40 mg tablet Take by mouth once daily. 11/22/2021 Active amantadine HCl (SYMMETREL) 100 mg capsule Take 1 capsule by mouth once daily. 12/08/2021 Active rosuvastatin (CRESTOR) 40 mg tablet Take 1 tablet by mouth once daily. 90 tablet 02/20/2022 Active Active Problems Problem Noted Date Diagnosed Date Peripheral arterial disease 01/11/2022 Tremors of nervous system 12/08/2021 Assessment & Plan (12/08/2021 5:37 PM EDT): Assessment: Pt. called and updated recently saw Neurology at [facility] ( [place]) started on amantadine, Pt. verbalized understanding O.K to take on DOS. 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 11/30/2021 Assessment & Plan (11/30/2021 10:25 AM EDT): Assessment: aspirin and Plavix Per Surgeon continue aspirin and Plavix Type 2 diabetes mellitus wit hout complication, without long-term current use of insulin 11/30/2021 Assessment & Plan (11/30/2021 10:26 AM EDT): Assessment: Managed with oral med Monitored by PCP Primary hypertension 11/30/2021 Assessment & Plan (11/30/2021 10:27 AM EDT): Assessment: Managed with med Date: BP: 11/30/2021 166/81 11/18/2021 167/79 05/13/2021 134/71 acceptable for surgery Monitored by PCP Anemia 11/30/2021 Assessment & Plan (11/30/2021 10:31 AM EDT): Assessment: on oral iron supplement Monitored by PCP Tobacco abuse 11/30/2021 Assessment & Plan (11/30/2021 10:34 AM EDT): Assessment: 55 pack year cigarette smoker Cessation with strategies encouraged. Bilateral carotid artery stenosis 03/28/2018 Assessment & Plan (11/30/2021 10:22 AM EDT): Assessment: MARCELLO 60-79% stenosis. , LICA 60-79% stenosis and Subclavian artery: 50-99% stenosis. ( per 11/18/2021 Carotid US) Asymptomatic Monitored by Vascular Stable. 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 shoulder Atherosclerosis of platinum ar radha of extremity with intermittent claudication 08/14/2006 Assessment & Plan (11/30/2021 10:24 AM EDT): Assessment: s/p stent; DAPT Pt. reports walking 1/8 mile before claudication symptoms occur, then will resolve immediately after rest. No erythema or ulcers. Monitored by Vascular Stable. Encounters Date Type Department Care Team Description 07/28/2024 11:15 AM EDT Office Visit Vascular Surgery [facility] [address] [place] [address] Abner Cruz MD Superior mesenteric artery stenosis (HCC) (Primary Dx); Aortoiliac occlusive disease (HCC); Peripheral arterial disease; Carotid artery stenosis, asymptomatic, bilateral; ALEXIA (renal artery stenosis) 07/28/2024 9:54 AM EDT - 07/28/2024 11:59 PM EDT Hospital Encounter CARDIOVASCULAR TESTING [address] [place] [address] Carotid artery stenosis, asymptomatic, bilateral [I65.23] Discharge Disposition: Home 07/28/2024 9:45 AM EDT - 07/28/2024 9:53 AM EDT Hospital Encounter CARDIOVASCULAR TESTING [address] [place] [address] Mesenteric artery stenosis (HCC) [K55.1] Discharge Disposition: Home 07/28/2024 8:30 AM EDT - 07/28/2024 9:44 AM EDT Hospital Encounter CARDIOVASCULAR TESTING [address] [place] [address] Peripheral arterial disease [I73.9] Discharge Disposition: Home 07/28/2024 Orders Only Vascular Surgery [address] [place] [address] Abner Cruz MD Peripheral arterial disease (Primary Dx); Carotid artery stenosis, asymptomatic, bilateral; Mesenteric artery stenosis (HCC) 07/28/2024 Travel from Last 3 Months Immunizations Immunization Administration Dates Next Due influenza vaccine, unspecified formulation 01/14 Family History Medical History Relation Comments Coronary Artery Disease Father CABG, renee s carotid stenosis/blockage Heart disease Father Coronary Artery Disease Mother Heart disease Mother Relation Status Comments Father Mother Social History Tobacco Use Types Packs/Day Years Used Date Smoking Tobacco: Every Day Cigarettes 1 55 Cigars Smokeless Tobacco: Never Tobacco Cessation:Ready to Q uit: No; Counseling Given: Not Answered Comments:cigars Alcohol Use Standard Drinks/Week Comments Yes 3 (1 standard drink = 0.6 oz pur e alcohol) occasional Area Deprivation Index Answer Date Trevin rded National Score (1-100), lower number is lower ri sk 52 08/25/2022 State Score (1-10), lower number is lower risk 3 08/25/2022 Data from: https://www.neighborhoodatlas.medicine.[facility].edu/. Last address used for calculation [address] [place] [address] 08/25/2022 Sex and Gender Information Value Date Recorded Sex Assigned at Not on file Legal Sex Male 8:07 AM EST Gender Identity Not on file Sexual Orientation Not on file Last Filed Vital Signs Vital Sign Reading Time Taken Comments Blood Pressure 155/76 07/28/2024 10:31 AM EDT Pulse 67 07/28/2024 10:31 AM EDT Temperature 36.5 C (97.7 F) 12/13/2021 1:00 PM EDT Respiratory Rate 20 12/13/2021 1:00 PM EDT Oxygen Saturation 99% 12/13/2021 1:00 PM EDT Inhaled Oxygen Concentration - - Weight 63 kg (139 lb) 07/28/2024 10:31 AM EDT Height 172.7 cm (5' 8 ) 07/28/2024 10:31 AM EDT Body Mass Index 21.13 07/28/2024 10:31 AM EDT Plan of Treatment Upcoming Encounters Date Type Department Care Team (Late st Contact Info) Description 02/02/2025 9:00 AM EDT Office Visit Vascular Lab [address] [place] [address] [place] [address] [address] Roller Operator Hot Mix [place] [address] [place] [address] 6 MONTH PAD/CAROTID/MESENTERI C FOLLOW UP 02/02/2025 10:00 AM EDT Office Visit Vascular Lab [address] [place] [address] [place] [address] [address], [address] Roller Operator Hot Mix [place] [address] [place] [address] 6 MONTH PAD/CAROTID/MESENTERI C FOLLOW UP 02/02/2025 11:00 AM EDT Office Visit Vascular Lab [address] [place] [address] [place] [address] [address] Roller Operator Hot Mix [place] [address] [place] [address] 6 MONTH PAD/CAROTID/MESENTERI C FOLLOW UP 02/02/2025 12:00 PM EDT Office Visit Vascular Surgery [address] [place] [address] [place] [address] [place] [address] [place] [address] 6 MONTH PAD/CAROTID/MESENTERI C FOLLOW UP Health Maintenance Due Date Last Done Comments Diabetic Foot Exam 1956 Dilated Retinal Exam 1956 Urine Albumin:Creatinine Ratio 1956 Annual PCP Team Chronic Dise ase Visit 1964 Anxiety Screening 1964 BP Controlled (<130/80) 1964 Depression Screening 1964 RSV Vaccine (1 - 1-dose 75+ series) 2021 Covid-19 Vaccine (2023-2 5 season) 2023 03/21/2021, 07/27/2020, 06/29/2020 Advance Directive Discussion 04/16/2024 LDL Cholesterol 04/19/2024 04/19/2023, 08/13/2006 HbA1C 11/09/2024 05/12/2024, 10/14, 04/19/2023, Additional history exists Lung Cancer Screening 05/02/2025 05/02/2024 , 05/02/2024, 05/24/2022, Additional history exists DTaP,Tdap,Td Vaccine (6 - Td or Tdap) 05/28/2034 05/28/2024, 10/25/2023, 11/27/2020, Additional history exists Pneumococcal Vaccine: 50+ Completed 2015, 12/30/2015, 12/29/2014, Additional history exists Shingrix Vaccine Completed 04/30/2018, , 10/14/2010 Hepatitis C Screening Completed 01/06/2019 Influenza Vaccine Completed 02/25/2024, , 01/04/2023, Additional history exists Fecal Occult Blood Discontinued 04/28/2024 Colonoscopy Discontinued 05/01/2024, 04/16, 04/30/2024 Colorectal Cancer Screening Discontinued CT Colonography Discontinued Cologuard (FIT-DNA) Discontinued Sigmoidoscopy Discontinued Goals Goal Patient Goal Type Associated Problems Recent Progress Patient-Stated? Author Blood Pressure < 130/80 Blood Pressure 155/76( 025 10:31 AM EDT) No Abner Cruz MD Medical Devices Implanted Type Area Director Prospect Device Identifier Shelf Expiration Date Model / Serial / Lot Stent Icast 6fr 7mm 16mm Tracheobronchial Covered - [id number] Implanted:Qty: 1 on 12/13/2021 at [facility] Vascular Stents N/A: Artery - SMA GETINGE [employer] 01/20/2022 [id number] / [id number] / Procedures Procedure Name Priority Date/Time Associated Diagnosis Comments US CAROTID ARTERIES [facility] Routine 07/28/2024 9:25 AM EDT Carotid artery stenosis, asymptomatic, bilateral US MESENTERIC ARTERY [facility] Routine 07/28/2024 9:04 AM EDT Mesenteric artery stenosis (HCC) PVR ANK PRESS [facility] Routine 07/28/2024 8:52 AM EDT Peripheral arterial disease HEMOGLOBIN A1C Routine 11/30/2021 11:15 AM EDT Preop examination Superior mesenteric artery stenosis (HCC) Bilateral carotid artery stenosis Atherosclerosis of platinum artery of both lower extremities with intermittent claudication (HCC) 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 Type 2 diabetes mellitus without complication, without long-term current use of insulin (HCC) Hypertension, unspecified type Anemia, unspecified type Tobacco abuse LIPID PANEL, FASTING Routine 08/13/2006 10:01 AM EDT Atheroscler Art [place] Extrem Unsp Preop Exam Other Unspecified from Last 3 Months or Most Recently Relevant to Health Maintenance Results * US CAROTID ARTERIES [facility] (07/28/2024 9:25 AM EDT) 07/28/2024 9:25 AM EDT Narrative [facility] - 07/28/2024 11:15 AM EDT Non-Invasive Vascular Laboratory [facility] Carotid Duplex Bilateral/Complete Date of service/time: 07/28/2024 9:25:18 AM Name: MR. NATALIO RUSSELL Date of : 1945 Age: 78 years Gender: M Clinical Indication Follow-up study on a patient with known carotid disease. TECHNIQUE -------- A carotid duplex ultrasound examination was performed, including grayscale imaging and color Doppler and spectral Doppler examination of the below mentioned arteries. FINDINGS -------- RIGHT SIDE Common carotid artery: Proximal: PSV: 116 cm/s. EDV: 9 cm/s. Mid: PSV: 95 cm/s. EDV: 13 cm/s. Distal: PSV: 80 cm/s. EDV: 7 cm/s. Mild heterogeneous plaque from proximal to distal. Internal carotid artery: Origin: PSV: 118 cm/s. EDV: 20 cm/s. Proximal: PSV: 195 cm/s. EDV: 36 cm/s. Mid: PSV: 151 cm/s. EDV: 18 cm/s. Distal: PSV: 111 cm/s. EDV: 24 cm/s. Moderate heterogeneous plaque from origin to proximal. ICA/CCA Ratio: 2.4 External carotid artery: Proximal: PSV: 95 cm/s. EDV: 0 cm/s. Subclavian artery: Proximal: PSV: 372 cm/s. EDV: 0 cm/s. Mild/moderate heterogeneous plaque at proximal. Vertebral artery: PSV: 83 cm/s. EDV: 14 cm/s. LEFT SIDE Common carotid artery: Proximal: PSV: 81 cm/s. EDV: 15 cm/s. Mid: PSV: 80 cm/s. EDV: 9 cm/s. Distal: PSV: 70 cm/s. EDV: 12 cm/s. Mild heterogeneous plaque from proximal to distal. Internal carotid artery: Origin: PSV: 59 cm/s. EDV: 14 cm/s. Proximal: PSV: 192 cm/s. EDV: 49 cm/s. Mid: PSV: 189 cm/s. EDV: 32 cm/s. Distal: PSV: 126 cm/s. EDV: 28 cm/s. Moderate heterogeneous plaque from origin to proximal. ICA/CCA Ratio: 2.7 External carotid artery: Proximal: PSV: 222 cm/s. EDV: 4 cm/s. Moderate heterogeneous plaque at origin. Subclavian artery: Proximal: PSV: 364 cm/s. EDV: 0 cm/s. Mild/moderate heterogeneous plaque at proximal. Vertebral artery: PSV: 61 cm/s. EDV: 15 cm/s. IMPRESSION Please note: the new carotid interpretation criteria are used as recommended by Intersocietal Accreditation Commission. Compared to prior study, 11/19/2023 No significant change from previous. RIGHT SIDE Common carotid artery: Plaque visualized without evidence of hemodynamically significant stenosis. Internal carotid artery: 50-69% stenosis consistent with moderate carotid artery disease. Vertebral artery: Patent and antegrade flow noted. Abnormal signal suggests more proximal stenosis. Innominate artery: Unable to visualize. Subclavian artery: 50-99% stenosis. LEFT SIDE Common carotid artery: Plaque visualized without evidence of hemodynamically significant stenosis. Internal carotid artery: 50-69% stenosis consistent with moderate carotid artery disease. External carotid artery: Elevated velocities and plaque noted. Vertebral artery: Patent and antegrade flow noted. Abnormal signal suggests more proximal stenosis. Subclavian artery: 50-99% stenosis. Technologist: Kellie Ma RVT Ordering physician: ABNER CRUZ Interpreting physician: Abner Cruz MD, RPVI Final See Link below for Image us Abner Cruz MD VASCULAR LAB Final Result [facility] [address] [place] [address] * MESENTERIC ARTERY [facility] (07/28/2024 9:04 AM EDT) 07/28/2024 9:04 AM EDT Narrative [facility] - 07/28/2024 11:14 AM EDT Non-Invasive Vascular Laboratory [facility] Renal or Mesenteric Duplex Bilateral/Complete Date of service/time: 07/28/2024 9:04:32 AM Name: MR. NATALIO RUSSELL Date of : 1945 Age: 78 years Gender: M Clinical Indication S/p superior mesenteric artery stent placed on 06/30/2006 with restent on 12/13/2021; known occluded celiac artery stent. TECHNIQUE -------- A visceral duplex ultrasound examination was performed, including grayscale imaging and color Doppler and spectral Doppler examination of the below mentioned arteries and veins. FINDINGS -------- Aorta proximal PSV: 76 cm/s. EDV: 15 cm/s. Aorta at renals PSV: 62 cm/s. EDV: 6 cm/s. Aorta mid PSV: 93 cm/s. EDV: 0 cm/s. Aorta distal PSV: 102 cm/s. EDV: 15 cm/s. Splenic proximal PSV: 91 cm/s. EDV: 25 cm/s. Superior mesenteric artery origin PSV: 313 cm/s. EDV: 61 cm/s. Superior mesenteric artery proximal PSV: 355 cm/s. EDV: 68 cm/s. Superior mesenteric artery mid PSV: 557 cm/s. EDV: 117 cm/s. Superior mesenteric artery distal PSV: 167 cm/s. EDV: 14 cm/s. IMPRESSION Compared to prior study of 10/27/2022, No significant change from previous. AORTA Plaque visualized without evidence of hemodynamically significant stenosis. MESENTERIC VESSELS Celiac: Occluded. Known occlusion. Stent noted. Hepatic: Unable to visualize. Splenic: Patent. Appears to be fed by collaterals. Multiple abdominal collaterals noted. Superior mesenteric artery: 70-99% stenosis. Stent noted. Inferior mesenteric artery: Unable to visualize. Technologist: Kellie Ma RVT Ordering physician: ABNER CRUZ Interpreting physician: Abner Cruz MD, RPVI Final See Link below for Image us Abner Cruz MD VASCULAR LAB Final Result [facility] [address] [place] [address] * PVR [facility] PRESS [facility] (07/28/2024 8:52 AM EDT) 07/28/2024 8:52 AM EDT Narrative [facility] - 07/28/2024 11:12 AM EDT Non-Invasive Vascular Laboratory [facility] Lower Extremity Arterial Physiology Study Bilateral/Complete Date of service/time: 07/28/2024 8:52:29 AM Name: MR. NATALIO RUSSELL Date of : 1945 Age: 78 years Gender: M Clinical Indication Abnormal pulses and Right common iliac and external iliac artery stents on 08/14/2006. TECHNIQUE -------- An arterial physiological examination was performed, including measurement of blood pressures using continuous wave Doppler and recording of plethysmographic with or without Doppler waveforms at the below-mentioned limb segments. FINDINGS -------- RIGHT SIDE AT REST Right Pressures Brachial: 180 mmHg Ankle dorsalis pedis: 100 mmHg LIVE: 0.55 Ankle posterior tibial: 113 mmHg LIVE: 0.62 Right PVR Waveforms Ankle: Moderately dampened. LEFT SIDE AT REST Left Pressures Brachial: 183 mmHg Ankle dorsalis pedis: 118 mmHg LIVE: 0.64 Ankle posterior tibial: 114 mmHg LIVE: 0.62 Left PVR Waveforms Ankle: Moderately dampened. IMPRESSION Compared to prior study of 11/19/2023, Decrease noted in bilateral LIVE's on today's exam. Previous LIVE on the right was 0.87; today's is 0.62. Previous LIVE on the left was 0.80; today's is 0.64. RIGHT SIDE Resting right ankle brachial index: 0.62 Abnormal ankle brachial index at rest diagnostic of peripheral artery disease. Right ankle: Moderate disease at rest. LEFT SIDE Resting left ankle brachial index: 0.64 Abnormal ankle brachial index at rest diagnostic of peripheral artery disease. Left ankle: Moderate disease at rest. Technologist: Kellie Ma RVT Ordering physician: ABNER CRUZ Interpreting physician: Abner Cruz MD, RPVI Final See Link below for Image us Abner Cruz MD VASCULAR LAB Final Result Performing Organization Address City/State/[facility] Co de Phone Number [facility] [address] [phone] * (ABNORMAL) HGB A1C (11/30/2021 11:15 AM EDT) [facility] Signature Hemoglobin A1C 6.9(H) 4.3 - 5.6 % 11/30/2021 11:[address] [facility] Comment:[place] Diabetes As sociation guidelines indicate that patients with HgbA1c in the range 5.7-6.4% are at increased risk for development of diabetes, and intervention by lifestyle modification may be beneficial. HgbA1c greater or equal to 6.5% is considered diagnostic of diabetes. Estimated Average Glucose 151 mg/dL 11/30/2021 11:[address] [facility] Comment:eAG: (Estimated aver age glucose) is a calculated value from HgbA1c and is sales representative malt liquors of the average blood glucose level in the last 2-3 month period. Blood BLOOD SPECIMEN / Unknown Venipuncture / Unknown 11/30/2021 11:15 AM EDT 11/30/2021 11:16 AM EDT us Jenna Raman VOLUNTEER SERVICES SUPERVISOR.[facility] Final Resul t [facility] [address] [facility] 1[address] [place] [address], [place] * (ABNORMAL) LIPID PANEL BASIC (08/13/2006 10:01 AM EDT) Triglyceride 75 30 - 149 mg/dL [facility] Cholesterol, Total 182 100 - 199 mg/dL [facility] HDL Cholesterol 38(L) >45 mg/dL [facility] VLDL Cholesterol 15 6 - 40 mg/dL [facility] LDL Cholesterol, Calculated 129 60 - 129 mg/dL [facility] Fasting Time 3 hrs [facility] TC:HDL Ratio 4.79 1.00 - 5.00 [facility] LDL:HDL Ratio 3.39 0.50 - 3.55 [facility] Blood specimen (specimen) BLOOD SPECIMEN / Unknown 08/13/2006 10:01 AM EDT us Bhavin Posey LABORATORY Final Result [facility] [address] [place] [address] from Last 3 Months or Most Recently Relevant to Health Maintenance Insurance [employer] Care Teams Medical Office Professional Instructor Relationship Specialty Start Date End Date Chary Calloway MD [address] [place] [address] PCP - General Family Medicine 09/01/21 Elisabeth Melendez MD [address] [place] [address] [phone] Physician Ent - Otolaryngology 10/29/15
--- OUTSIDE RECORDS SUMMARY | 2024-09-09 09:10 | XMS_ITS | Clinical Summary ---
Author Organization [facility] Healthcare Address [address] [place] [address] Care Team Providers Care Electrical Test Technician Name Role Phone Chary Calloway MD Unavailable Chary Calloway MD Primary Care Provider [phone] Allergies No known active allergies Medications multivitamin with minerals (Centrum) 9-200 mg-mcg tablet split tablet Take 1 tablet by mouth in the morning. Active Cyanocobalamin 2500 MCG sublingual tabletIndications :Ulnar neuropathy of left upper extremity Take 2,500 mcg by mouth Daily 90 tablet 3 4 11/06/19 25 Active hydrALAZINE (Apresoline) 25 MG tabletIndications :Essential hypertension (CMS/HCC) Take 1 tablet (25 mg) by mouth in the morning and 1 tablet (25 mg) in the evening and 1 tablet (25 mg) before bedtime. 300 tablet 3 4 12/27/19 25 Active metoprolol succinate XL (Toprol XL) 100 MG 24 hr tabletIndications :Essential hypertension (CMS/HCC) Take 1 tablet (100 mg) by mouth Daily Do not crush or chew. 90 tablet 3 4 01/11/20 25 Active albuterol HFA (ProAir HFA) 90 mcg/act inhalerIndication s:COPD with exacerbation (CMS/HCC) Inhale 2 puffs every 6 (six) hours if needed for wheezing 18 g 11 4 03/25/20 25 Active pantoprazole (ProtoNix) 40 MG EC tabletIndications :Iron deficiency anemia, unspecified iron deficiency anemia type TAKE 1 TABLET DAILY 90 tablet 3 5 Active FeroSul 325 (65 Fe) MG tabletIndications :Iron deficiency anemia, unspecified iron deficiency anemia type TAKE 1 TABLET ONCE DAILY ON AN EMPTY STOMACH WITH GLASS OF ORANGE JUICE 90 tablet 3 5 Active rosuvastatin (Crestor) 40 MG tabletIndications :Coronary artery disease involving tlingit & haida coronary artery of tlingit & haida heart without angina pectoris (CMS/HCC) TAKE 1 TABLET ONCE DAILY AT THE SAME TIME 90 tablet 3 5 Active Fluticasone-Umecl idin-Vilant (Trelegy Ellipta) 200-62.5-25 MCG/ACT aerosol powderIndications :COPD with exacerbation (CMS/HCC) Inhale 1 Inhalation Daily 1 each 3 5 Active rOPINIRole (Requip) 0.5 MG tabletIndications :Parkinson's Disease Take 1 tablet (0.5 mg) by mouth in the morning and 1 tablet (0.5 mg) in the evening and 1 tablet (0.5 mg) before bedtime. 270 tablet 3 5 07/15/19 26 Active clopidogrel (Plavix) 75 MG tabletIndications :Coronary artery disease involving tlingit & haida coronary artery of tlingit & haida heart without angina pectoris (CMS/HCC) TAKE 1 TABLET DAILY 90 tablet 3 5 Active buPROPion XL (Wellbutrin XL) 300 MG 24 hr tabletIndications :Tobacco abuse Take 1 tablet (300 mg) by mouth in the morning for 10 days. Do not crush, chew, or split. 10 tablet 5 Active Hospital, Clinic, or Other Facility Administered Medication Ordered Dose Route Frequency Start Date End Date Status triamcinolone acetonide (Kenalog-40) injection 40 mgIndications:Internal derangement of right knee 40 mg IM Once 09/21/2022 Active lidocaine (Xylocaine) 1 % injection 20 mgIndications:Internal derangement of right knee 20 mg ID Once 09/21/2022 Active Active Problems Problem Noted Date Diagnosed Date Age-related nuclear cataract of both eyes 2024 Encounter for immunization 07/17/2024 Epiretinal membrane 07/17/2024 Fitting and adjustment of hearing aid 07/17/2024 Asymmetrical sensorineural hearing loss 07/18/19 25 Myopia 07/17/2024 Presbyopia 07/17/2024 Regular astigmatism 07/17/2024 Regular astigmatism, bilateral 07/17/2024 Tear film insufficiency 07/17/2024 Hamartoma of intestine 07/14/2024 COPD with exacerbation 07/14/2024 Schwannoma of colon 05/16/2024 Angiectasia of gastrointestinal tract 04/24/2024 GI bleed 04/24/2024 Acute cystitis without hematuria 04/23/2024 Benign prostatic hyperplasia with lower urinary tract symptoms 04/23/2024 Gastroesophageal reflux disease without esophagi tis 04/23/2024 Renal artery stenosis 06/12/2023 Tremor 05/30/2023 Stage 3a chronic kidney disease (HCC) 05/15/2023 Pulmonary fibrosis, unspecified (J84.10) 024 Atherosclerosis of aorta (I70.0) 04/19/2023 Absolute anemia 09/03/2022 Bilateral carotid artery stenosis 09/03/2022 Coronary artery disease invo lving tlingit & haida coronary artery of tlingit & haida heart without angina pectoris 09/03/2022 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 2022 Overview (09/21/2022): Managed by neurology Diabetic renal disease 09/03/2022 Elevated PSA 09/03/2022 Entrapment of left ulnar nerve at elbow 09/04/19 23 Essential hypertension 09/03/2022 Assessment & Plan (09/21/2022 5:00 PM EDT): Elevated today spouse will check home bp and confirm he is taking medication daily History of gastrectomy 09/03/2022 Hyperlipidemia 09/03/2022 Nicotine dependence 09/03/2022 Overview (04/19/2023): Cessation 02/2023 Other chronic pain 09/03/2022 Parkinsonism 09/03/2022 Overview (09/21/2022): Managed by neurology Peripheral vascular disease 09/03/2022 Skin lesion of left ear 09/03/2022 Squamous cell carcinoma of back 09/03/2022 Stage 2 chronic kidney disease 09/03/2022 Supraglottic mass 09/03/2022 Tubular adenoma of colon 09/03/2022 Type 2 diabetes mellitus wit hout complication, without long-term current use of insulin 09/03/2022 Assessment & Plan (09/21/2022 5:03 PM EDT): Hga1c is stable Ulnar neuropathy of left upper extremity 023 Unsteady gait when walking 09/03/2022 Gross hematuria 06/21/2022 Overview (09/20/2022): 06/21/22: Recent painless gross hematuria. He agrees to a CT urogram and cystoscopy for further evaluation. Urine sent for fish/cytology 07/25/22: CT urogram with bilateral dilated collecting system secondary to outlet obstruction, BPH. Cysto with BPH. Finasteride started Last Assessment & Plan: He feels he will be able to tolerate the cystoscopy under local anesthesia. I will call him with the results of the CT urogram. We will not call with the fish/cytology results unless positive Urinary retention 12/28/2021 Overview (04/19/2023): Managed by urology: Postop urinary retention which has resolved. 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 Pathology benign 11/30/20: Left scrotal hematoma after traumatic laceration. Plan recheck 2 weeks to remove suture 12/14/20: Sutures removed 01/18/21 - healed Last Assessment & Plan: Drain removed today. He will follow-up as scheduled in May. I asked him to call sooner if any problems. 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 I believe this [...] to proceed 03/25/19: Evacuation of scrotal hematoma Atherosclerosis of tlingit & haida ar radha of both lower extremities with intermittent claudication 03/28/2018 Penile lump 09/04/2017 Overview (09/20/2022): Penile lump palpable September 04, 2017 which [...] lump nearly resolved. 11/12/18: Resolved on exam Carotid disease, bilateral 05/11/2016 Chronic mesenteric ischemia (HCC) 06/25/2013 Overview (09/20/2022): Last Assessment & Plan: Assessment: SEE HPI Adhesive capsulitis of shoulder 01/22/2007 Overview (09/20/2022): Overview: lt. shoulder lt. shoulder Atherosclerosis of tlingit & haida ar radha of extremity with intermittent claudication 08/14/2006 Overview (10/18/2022): Last Assessment & Plan: Assessment: s/p stent; DAPT Pt. reports walking 1/8 mile before claudication symptoms occur, then will resolve immediately after rest. No erythema or ulcers. Monitored by V[facility] Stable. Resolved Problems Problem Noted Date Diagnosed Date Resolved Date Abnormal chest xray 09/03/2022 09/22/19 23 Altered mental status 09/03/20222022 Memory change 09/03/2022 09/21/2022 Neck mass 09/03/2022 04/19/2023 Nontoxic single thyroid nodule 09/03/2022 04/19/2023 Tremors of nervous system 12/08/2021 Overview (09/20/2022): Last Assessment & Plan: Assessment: Pt. called and updated recently saw Neurology at [facility] ( Christy) started on amantadine, Pt. verbalized understanding O.K to take on DOS. Tobacco abuse 11/30/2021 04/19/2023 Overview (09/20/2022): Last Assessment & Plan: Assessment: 55 pack year cigarette smoker Cessation with strategies encouraged. Bowel obstruction 10/31/2020 04/19/2023 Encounters Date Type Department Care Team Description 09/01/[address] [facility] [address] [place] [address] Nick Maravilla LPN 08/28/2024 Results Follow-Up [facility] [address] [place] [address] Ruby Arteaga MD 08/25/2024 1:05 PM EDT Office Visit [facility] [address] [place] [phone] Ruby Arteaga MD Seborrheic keratosis (Primary Dx); Personal history of other malignant neoplasm of skin; Lentigines; Capillary angioma; Neoplasm of unspecified behavior of bone, soft tissue, and skin 08/25/2024 Bamboo flowsheet [facility] [address] [place] [address] Ruby Arteaga MD 08/25/2024 Travel 08/20/2024 External Result Encounter [facility] [address] [place] [id number] Chary Calloway MD 08/13/2024 11:00 AM EDT Office Visit [facility] [address] [place] [phone] Chary Calloway MD Type 2 diabetes mellitus with stage 3a chronic kidney disease, without long-term current use of insulin (HCC) (CMS/HCC) (Primary Dx); Coronary artery disease involving tlingit & haida coronary artery of tlingit & haida heart without angina pectoris (CMS/HCC); 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 (CMS/HCC); Pure hypertriglyceridemia (CMS/HCC); Parkinsonism, unspecified Parkinsonism type (CMS/HCC); Chronic mesenteric ischemia (HCC) (CMS/HCC); Chronic kidney disease, stage 3a (HCC) (CMS/HCC); Leg weakness, bilateral; Parkinson's disease without dyskinesia or fluctuating manifestations (CMS/HCC) 08/13/2024 Bamboo flowsheet [facility] [address] [place] [phone] Chary Calloway MD 08/13/2024 Travel 07/25/2024 Patient Outreach [facility] [address] [place] [address] Nick Maravilla LPN 07/21/2024 Refill [facility] [address] [place] [address] Chary Calloway MD Coronary artery disease involving tlingit & haida coronary artery of tlingit & haida heart without angina pectoris (CMS/HCC) 07/17/2024 2:20 PM EDT Office Visit [facility] [address] [place] [address] Jake Lainez MD Parkinson's disease, unspecified whether dyskinesia present, unspecified whether manifestations fluctuate (CMS/HCC) (Primary Dx) 07/17/2024 Bamboo flowsheet [facility] [address] [place] [phone] Jake Lainez MD 07/17/2024 Travel 07/14/2024 11:20 AM EDT Office Visit [facility] [place] [address] [place] [address] Chary Calloway MD 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 (CMS/HCC) (Primary Dx); Essential hypertension (CMS/HCC); Type 2 diabetes mellitus without complication, without long-term current use of insulin (CMS/HCC); Iron deficiency anemia due to chronic blood loss; Hamartoma of intestine (CMS/HCC); Antineutrophil cytoplasmic antibody (ANCA) positive; Pure hypercholesterolemia (CMS/HCC) ; Coronary artery disease involving tlingit & haida coronary artery of tlingit & haida heart without angina pectoris (CMS/HCC); Weight loss; Dysphagia, unspecified type; COPD with exacerbation ([facility]); Parkinson's disease without fluctuating manifestations, unspecified whether dyskinesia present ([facility]); Bilateral carotid artery occlusion; Atherosclerosis of tlingit & haida artery of right lower extremity with intermittent claudication ([facility]); Exposure to Agent Floyd 07/14/2024 Travel 07/14/2024 Patient Outreach [facility] [address] [place] [phone] Nick Maravilla LPN 07/04/2024 Refill [facility] [address] [place] [address] Chary Calloway MD Coronary artery disease involving tlingit & haida coronary artery of tlingit & haida heart without angina pectoris ([facility]) 06/26/2024 Clinisync Result Encounter [facility] External Department Unsolicited Provider, Generic External Data 06/24/2024 Clinisync Result Encounter [facility] External Department Unsolicited Provider, Generic External Data 06/23/2024 Refill [facility] [address] [place] [phone] Alyson Salter, CREDIT COORDINATOR Parkinson's disease, unspecified whether dyskinesia present, unspecified whether manifestations fluctuate ([facility]) (Primary Dx) 06/12/2024 Refill [facility] [address] [place] [address] Chary Calloway MD Iron deficiency anemia, unspecified iron deficiency anemia type from Last 3 Months Immunizations Immunization Administration Dates Next Due Influenza, High Dose Seasona l, Preservative Free 02/13/2024 Influenza, High-dose Seasona l, Quadrivalent, Preservative Free 02/25/2024,01/04/2023,12/22/2021 Influenza, Recombinant, inje ctable, preservative free 01/11/2021 Influenza, Seasonal, Quadriv alent, Adjuvanted 01/11/2021,12/11/2019 Influenza, Unspecified 01/15/2020,2017,01/14/2017,12/29,01/15/2012,01/14/2011,01/14/2010 ,01/14/2006 Influenza, injectable, quadr ivalent, preservative free 12/11/2019,12/10/2017,01/12/2016 Influenza, seasonal, injecta ble, preservative free 01/18/2018,01/19/2017,01/12/2017,01/12,12/15/2013 Influenza, trivalent, adjuvanted 01/03/2019 Moderna SARS-CoV-2 Booster Vaccination 1 Pneumococcal Conjugate PCV 13 12/30/2015, 015 Pneumococcal Polysaccharide PPSV23 12/30/2015, Pneumococcal, Unspecified 12/30/2015,10/07/2010 Td (adult), 5 Lf tetanus tox oid, preservative free, adsorbed 10/25/2023 Tdap 05/28/2024, 1,09/16/2016,10/07 Zoster, Recombinant 04/30/2018,12/28/2017 Zoster, live 10/14/2010 Family History Medical History Relation Name Comments Cancer Father Diabetes Father Heart disease Father Hyperlipidemia Father Hypertension Father Heart disease Mother Hyperlipidemia Mother Hypertension Mother Relation Name Status Comments Daughter Alive 2 daughters Father Mother Son Alive 2 sons Social History Tobacco Use Types Packs/Day Years Used Date Smoking Tobacco: Former Cigarettes 1 - 02/2023 Smokeless Tobacco: Never Tobacco Cessation:Counseling Given: Not Answered Comments:1-9 cigs/ day Alcohol Use Standard Drinks/Week [...] Sign Reading Time Taken Comments Blood Pressure 136/70 08/13/2024 10:50 AM EDT Pulse 69 08/13/2024 10:50 AM EDT Temperature 37 C (98.6 F) 11/21/2022 2:44 PM EDT Respiratory Rate 18 08/13/2024 10:50 AM EDT Oxygen Saturation 99% 08/13/2024 10:50 AM EDT Inhaled Oxygen Concentration - - Weight 63 kg (138 lb 12.8 oz) 08/13/2024 10:50 A M EDT Height 172.7 cm (5' 8 ) 08/13/2024 10:50 AM EDT Body Mass Index 21.1 08/13/2024 10:50 AM EDT Plan of Treatment Upcoming Encounters Date Type Department Care Team (Late st Contact Info) Description 09/17/2024 11:00 AM EDT Office Visit [facility] [address] [place] [address] Jake Lainez MD [address] [facility] [address] [place] [phone] 10/03/2024 11:00 AM EDT Office Visit [facility] [address] [place] [address] Ruby Arteaga MD [address] [place] [address] 11/12/2024 10:40 AM EDT Office Visit [facility] [address] [place] [phone] Chary Calloway MD [address] [place] [address] 08/26/2025 1:05 PM EDT Office Visit [facility] [address] [place] [address] Ruby Arteaga MD [address] [place] [address] Health Maintenance Due Date Last Done Comments Diabetes: Urine Protein Screening 05/26/2023 05/26/2022, 05/23/2022, 05/09/2021, Additional history exists Diabetes: Hemoglobin A1C 11/12/2024 025, 05/12/2024, 01/29/2024, Additional history exists Diabetes: Retinopathy Screening 05/21/2025 4, 03/27/2022 Pneumococcal Vaccine: 65+ Years Completed 12/30/2015, 12/30/2015, 12/30/2015, Additional history exists Influenza Vaccine Completed 02/25/2024, , 01/04/2023, Additional history exists FOBT Discontinued 04/28/2024 Colonoscopy Discontinued 05/01/2024, 04/16, 04/30/2024, Additional history exists Colorectal Cancer Screening Discontinued CT Colonography Discontinued FIT-DNA Discontinued FIT Discontinued Sigmoidoscopy Discontinued Goals Goal Patient Goal Type Associated Problems Recent Progress Patient-Stated? Author Help patient manage antidepressant medication Care Plan Patient on antidepressant monitoring plan No Chary Calloway MD Baseline PHQ-9 Care Plan Baseline PHQ-9 No Chary Calloway MD Procedures Procedure Name Priority Date/Time Associated Diagnosis Comments SKIN / NAIL BIOPSY Routine 08/25/2024 1: 05 PM EDT Neoplasm of unspecified behavior of bone, soft tissue, and skin DERMATOPATHOLOGY EXAM Routine 08/25/2024 12:00 AM EDT Neoplasm of unspecified behavior of bone, soft tissue, and skin SWALLOW MOTILITY FUNCTION 08/20/2024 12:35 PM EDT POCT GLYCOSYLATED HEMOGLOBIN (HGB A1C) Routine 08/13/2024 11:04 AM EDT Type 2 diabetes mellitus with stage 3a chronic kidney disease, without long-term current use of insulin (HCC) ([facility]) COMPREHENSIVE METABOLIC PANEL Routine 07/14/2024 11:50 AM EDT Bilateral carotid artery occlusion CBC (INCLUDES DIFF/PLT) Routine 07/15/19 11:50 AM EDT Bilateral carotid artery occlusion US RENAL BI 06/26/2024 9:17 AM EDT ALL MISCELLANEOUS TEST Routine 7:00 AM EDT IMMUNOFIXATION, SERUM Routine 06/24/2024 11:34 AM EDT [facility] PTH, INTRAOPERATIVE Routine 025 11:34 AM EDT VITAMIN B12 Routine 06/24/2024 11:34 AM EDT ALL FOLIC ACID Routine 06/24/2024 11:34 AM EDT [facility] FERRITIN Routine 06/24/2024 11:34 AM EDT ALL MAGNESIUM Routine 06/24/2024 11:34 AM EDT ALL URIC ACID Routine 06/24/2024 11:34 AM EDT ALL RENAL FUNCTION PANEL Routine 025 11:34 AM EDT METRO IRON AND TIBC Routine 06/24/2024 1 1:34 AM EDT IMMUNOFIXATION, URINE Routine 06/24/2024 11:10 AM EDT ALL MISCELLANEOUS TEST Routine 11:10 AM EDT ALL URINALYSIS Routine 06/24/2024 11:10 AM EDT MICROALBUMIN / CREATININE URINE RATIO Routine 05/23/2022 COLOR FUNDUS PHOTOGRAPHY - OU - BOTH EYES Routine 03/27/2022 12:00 PM EST COLONOSCOPY Routine 08/17/2020 12:00 PM EDT from Last 3 Months or Most Recently Relevant to Health Maintenance Results * Lesion biopsy (08/25/2024 1:05 PM EDT) Edda Diallo MA - 08/25/2024 1:05 PM EDT Type of biopsy: tangential Informed consent: discussed and consent obtained Informed consent comment: The risks and benefits of the biopsy were discussed. Risks include but are not limited to bleeding, infection, scarring, pain, and nerve damage. An opportunity to ask questions prior to the procedure was permitted and all questions were answered. Patient was prepped and draped in usual sterile fashion: area cleansed with alcohol. Anesthesia: the lesion was anesthetized in a standard fashion Anesthetic: 1% lidocaine w/ epinephrine 1-100,000 buffered w/ 8.4% NaHCO3 Instrument used: DermaBlade Hemostasis achieved with: electrodesiccation Outcome: patient tolerated procedure well Outcome comment: The specimen was placed in a prelabeled formalin container to be sent for pathology Post-procedure details: sterile dressing applied and wound care instructions given Post-procedure details comment: Emphasized need to contact clinic for any signs of infection, uncontrollable bleeding, or complications. Dressing type: bandage Additional details: Photo taken Amount of lidocaine used: 1cc Ruby Arteaga MD DERM PROCEDURE ORDERABLES Fin al Result * Dermatopathology exam (08/25/2024 12:00 AM EDT) SPECIMEN TYPE ------ SPECIMEN: LEFT UPPER BACK ------ [facility] ICD10 Code C44.519 [facility] PROTOCOL F - FLAT [facility] Final Diagnosis BASAL CELL CARCINOMA, NODULAR. COMMENT: The tumor is present at the peripheral edges of the tissue. [facility] Gross Text [facility] Microscopic Description Microscopic examination performed. [facility] CPT 95242*1 [facility] Skin Topography unknown / Unknown 08/25/2024 1:05 PM EDT Comment:Differential Diagnos is: BCC Check Margins: No Size of lesion: 0.9 x 0.7 cm Ruby Arteaga MD LAB PATHOLOGY ORDERABLES Ning l Result [facility] * SWALLOW MOTILITY FUNCTION (08/20/2024 12:35 PM EDT) Anatomical Region Laterality Modality Radiographic Tory ging 08/20/2024 12:3 5 PM EDT Narrative 08/20/2024 12:34 PM EDT THIS EXAM WAS PERFORMED AT [facility] STUDY: Video fluoroscopic swallow study [...] - 08/20/2024 THIS EXAM WAS PERFORMED AT [facility] STUDY: Video fluoroscopic swallow study [...] Calloway MD IMG XR PROCEDURES Final Result * (ABNORMAL) POCT glycosylated hemoglobin (Hb A1C) docked device (08/13/2024 11:04 AM EDT) Hemoglobin A1C 6.7 Blood Venous blood specimen / Unknown 08/13/2024 11:04 AM EDT Chary Calloway MD POINT OF CARE TEST ENTER/EDIT OR DERABLES Final Result * (ABNORMAL) CBC and differential (07/14/2024 11:50 AM EDT) Pathologist [facility] WHITE BLOOD CELL COUNT 7.7 3.8 - 10.8 Thousand/u L [facility] RED BLOOD CELL COUNT 4.21 4.20 - 5.80 Million/uL [facility] HEMOGLOBIN 12.0(L) 13.2 - 17.1 g/dL [facility] HEMATOCRIT 37.1(L) 38.5 - 50.0 % [facility] MCV 88.1 80.0 - 100.0 fL [facility] MCH 28.5 27.0 - 33.0 pg [facility] MCHC 32.3 32.0 - 36.0 g/dL [facility] Comment: For adults, a slight decrease in the calculated MCHC value (in the range of 30 to 32 g/dL) is most likely not clinically significant; however, it should be interpreted with caution in correlation with other red cell parameters and the patient's clinical condition. RDW 14.5 11.0 - 15.0 % [facility] PLATELET COUNT 293 140 - 400 Thousand/u L [facility] MPV 11.6 7.5 - 12.5 fL [facility] ABSOLUTE NEUTROPHILS 6,152 1,500 - 7,800 cells/uL [facility] ABSOLUTE LYMPHOCYTES 839(L) 850 - 3,900 cells/uL [facility] ABSOLUTE MONOCYTES 562 200 - 950 cells/uL [facility] ABSOLUTE EOSINOPHILS 123 15 - 500 cells/uL [facility] ABSOLUTE BASOPHILS 23 0 - 200 cells/uL [facility] NEUTROPHILS 79.9 % [facility] LYMPHOCYTES 10.9 % [facility] MONOCYTES 7.3 % [facility] EOSINOPHILS 1.6 % [facility] BASOPHILS 0.3 % [facility] Blood Venous blood specimen / Unknown 07/14/2024 11:50 AM EDT 07/14/2024 11:50 AM EDT Narrative Resulting Agency Comment Performing Organization Information Site ID: [email or web address] Name: [facility] Address: [address] [place] [address], [address] [place] [id number] Director: Tom Mendez MD Chary Calloway MD LAB BLOOD ORDERABLES Final Resul t [facility] * (ABNORMAL) Comprehensive metabolic panel (07/14/2024 11:50 AM EDT) Glucose 194(H) 65 - 99 mg/dL [facility] Comment: Fasting reference interval For someone without known diabetes, a glucose value >125 mg/dL indicates that they may have diabetes and this should be confirmed with a follow-up test. BUN 22 7 - 25 mg/dL [facility] Creatinine 1.08 0.70 - 1.28 mg/dL [facility] EGFR 71 > OR = 60 mL/min/1. 73m2 [facility] BUN/CREATININE RATIO SEE NOTE: 6 - 22 (calc) [facility] Comment: Not Reported: BUN and Creatinine are within reference range. Sodium 140 135 - 146 mmol/L [facility] Potassium, Bld 4.1 3.5 - 5.3 mmol/L [facility] Chloride 106 98 - 110 mmol/L [facility] Carbon Dioxide 26 20 - 32 mmol/L [facility] Calcium 8.7 8.6 - 10.3 mg/dL [facility] PROTEIN, TOTAL 5.1(L) 6.1 - 8.1 g/dL [facility] ALBUMIN 3.4(L) 3.6 - 5.1 g/dL [facility] GLOBULIN 1.7(L) 1.9 - 3.7 g/dL (calc) [facility] ALBUMIN/GLOBULIN RATIO 2.0 1.0 - 2.5 (calc) [facility] BILIRUBIN, TOTAL 0.4 0.2 - 1.2 mg/dL [facility] ALKALINE PHOSPHATASE 80 35 - 144 U/L [facility] AST 19 10 - 35 U/L [facility] ALT 51(H) 9 - 46 U/L [facility] Blood Venous blood specimen / Unknown 07/14/2024 11:50 AM EDT 07/14/2024 11:50 AM EDT Narrative Resulting Agency Comment Performing Organization Information Site ID: [email or web address] Name: [employer] [facility] Address: [address] [place] [address], [address] [place] [phone] Director: Tom Mendez MD us Chary Callwoay MD LAB BLOOD ORDERABLES Final Resul t [facility] * US RENAL BI (06/26/2024 9:17 AM EDT) Anatomical Region Laterality Modality Other 06/26/2024 9:17 AM EDT Narrative 06/26/2024 9:19 AM EDT [address] [address] Ultrasound Report Signed Patient: NATALIO RUSSELL MR#: [id number] : 1945 Acct:[id number] Age/Sex: 78 / M ADM Date: 06/26/24 Loc: US Attending Dr: MENDEZ FU Ordering Physician: MENDEZ FU Date of Service: 06/26/24 Procedure(s): US renal BI Accession Number(s): [id number] cc: MENDEZ FU ; CHARY CALLOWAY [address] [address] Patient Name: NATALIO RUSSELL MRN: [id number] date: 1945 Sex: M Assigned Patient Location: US Current Patient Location: LAB Accession/Order Number: [id number] Exam Date: 06/26/2024 09:11 Report Date: 06/26/2024 09:17 At the request of: MENDEZ FU Procedure: US renal BI BILATERAL RENAL AND BLADDER ULTRASOUND CLINICAL HISTORY: Hypertensive Renal Disease, Stage 2 Renal Disease, Proteinuria COMPARISON: None Estimation of renal size is approximately 10.1 cm on the right and 9.2 cm on the left. No shadowing calculi or hydronephrosis are identified. No renal mass lesions were imaged. There is no perinephric fluid. The urinary bladder is partially distended with a volume of 141 mL. The bladder wall appears thickened with a more focal lobulated component toward the trigone on the right. This area is approximately 2.8 x 1.1 x 1.5 cm in size. There is a prominent, heterogeneous prostate measuring 4.6 x 3.8 x 4.8 cm in size (volume 43 mL). US/US renal BI IMPRESSION: NO OBSTRUCTIVE UROPATHY. PROSTATE HYPERTROPHY. THICKENED URINARY BLADDER WALL WITH A FOCAL MASSLIKE AREA TOWARD THE BASE ON THE RIGHT. CLINICAL CORRELATION AND FOLLOW-UP ARE RECOMMENDED TO EXCLUDE ANY POSSIBILITY OF NEOPLASM. Impression dictated by: Alyse Beth M.D.06/26/2024 9:17 AM Dictation Location: [place] [address] Electronically authenticated by: [id number] Y Date: 06/26/2024 09:17 Dictated By: Alyse Beth M.D. Signed By: 06/26/24918 DD/ 6 TD/TT: Surface Plate Inspector: Procedure Note Radiology, Radiologist, - 06/26/2024 [place] [address] Ultrasound Report Signed Patient: NATALIO RUSSELL EMR#: [id number] : 1945cct:[id number] Age/Sex: 78 / MADM Date: 06/26/24 Loc: US Attending Dr: MENDEZ FU Ordering Physician: MENDEZ FU Date of Service: 06/26/24 Procedure(s): US renal BI Accession Number(s): [id number] cc: MENDEZ FU ; CHARY CALLOWAY [place] [id number] Patient Name: NATALIO RUSSELL MRN: [id number] date: 1945 Sex: M Assigned Patient Location: US Current Patient Location: LAB Accession/Order Number: [id number] Exam Date: 06/26/2024 09:11 Report Date: 06/26/2024 09:17 At the request of: MENDEZ FU Procedure: US renal BI BILATERAL RENAL AND BLADDER ULTRASOUND CLINICAL HISTORY: Hypertensive Renal Disease, Stage 2 Renal Disease, Proteinuria COMPARISON: None Estimation of renal size is approximately 10.1 cm on the right and 9.2 cmon the left. No shadowing calculi or hydronephrosis are identified. No renalmass lesions were imaged. There is no perinephric fluid. The urinary bladder is partially distended with a volume of 141 mL. The bladder wall appears thickened with a more focal lobulated componenttoward the trigone on the right. This area is approximately 2.8 x 1.1 x 1.5 cmin size. There is a prominent, heterogeneous prostate measuring 4.6 x 3.8 x4.8 cm in size (volume 43 mL). US/US renal BI IMPRESSION: NO OBSTRUCTIVE UROPATHY. PROSTATE HYPERTROPHY. THICKENED URINARY BLADDER WALL WITH A FOCAL MASSLIKE AREA TOWARD THE BASEON THE RIGHT. CLINICAL CORRELATION AND FOLLOW-UP ARE RECOMMENDED TO EXCLUDEANY POSSIBILITY OF NEOPLASM. Impression dictated by: Alyse Beth M.D.06/26/2024 9:17 AM Dictation Location: [place] [address] Electronically authenticated by: [id number] Y Date: 9:17 Dictated By: Alyse Beth M.D. Signed By:06/26/24918 DD/ 6 TD/TT: Surface Plate Inspector: us Generic External Data Provider [employer] [facility] Final Result * ALL MISCELLANEOUS TEST (06/26/2024 7:00 AM EDT) Only the most recent of2 resultswithin the time period is included. MISCELLANEOUS TEST COMMENT . [facility] Comment: Test Ordered: [id number] Protein Electro, 24-Hour Urine Protein,Total,Urine 325.8 mg/dL CB Reference Range: Not Estab. Results confirmed on dilution. Prot,24hr calculated 3502 [H ] mg/24 hr CB Reference Range: 30-150 Albumin, U 72.1 % CB Reference Range: . Nudak-1-Fbxemufr, U 2.2 % CB Reference Range: . Aswic-8-Abjygyrz, U 7.3 % CB Reference Range: . Beta Globulin, U 11.9 % CB Reference Range: . Gamma Globulin, U 6.5 % CB Reference Range: . M-Marcin, % Comment: % CB Reference Range: Not Observed UPE shows asymmetrical gamma. Suggest urine KAELYN, Serum PE/KAELYN, and free light chain analysis for further evaluation. M-Marcin, mg/24 hr CREDIT COORDINATOR NOLAB Reference Range: . Please note: Comment CB Reference Range: . Protein electrophoresis scan will follow via computer, mail, or electrician radio delivery. Performed at: [facility] [employer] [id number] Stock Pitcher: Capo Farah PhD, Phone: [phone] 06/26/2024 7:00 AM EDT 06/26/2024 8:50 AM EDT Narrative CLINISYNC - 06/30/2024 11:11 AM EDT [id number] Protein Electrophoresis, 24-Hour Urine Generic External Data Provider CLIN[facility]NC F inal Result Performing Organization Address City/[facility]/ZIP Co de Phone Number [facility] * (ABNORMAL) VITAMIN B12 (06/24/2024 11:34 AM EDT) Pathologist [facility] VITAMIN B12 >2000(A) 232 - 1245 pg/mL TB Comment: Performed at: [address] [id number] Stock Pitcher: Capo Farah PhD, Phone: [phone] 06/24/2024 11:3 4 AM EDT 06/24/2024 11:36 AM EDT Narrative CLINISYCA - 06/25/2024 2:09 AM EDT Generic External Data Provider LAB BLOOD ORDERAB LES Final Result Performing Organization Address [facility] Co de Phone Number [facility] * (ABNORMAL) IMMUNOFIXATION, SERUM (06/24/2024 11:34 AM EDT) [facility] IMMUNOFIXATION RESULT, SERUM Comment(A ) . 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 PLEASE NOTE: Samples from patients receiving DARZALEX(R) (daratumumab) or SARCLISA(R)(isatuximab-irfc) treatment can appear as an IgG kappa and mask a complete response (CR). If this patient is receiving these therapies, this KAELYN assay interference can be removed by ordering test number [id number]- Immunofixation, Daratumumab-Specific, Serum or [id number]- Immunofixation, Isatuximab-Specific, Serum and submitting a new sample for testing or by calling the lab to add this test to the current sample. IMMUNOGLOBULIN G, QN, SERUM 477(A) 603 - 1613 mg/dL [facility] IMMUNOGLOBULIN A, QN, SERUM 214 61 - 437 mg/dL [facility] IMMUNOGLOBULIN M, QN, SERUM 81 15 - 143 mg/dL [facility] Comment: Performed at: [address] [id number] Stock Pitcher: Capo Farah PhD, Phone: [phone] 06/24/2024 11:3 4 AM EDT 06/24/2024 11:36 AM EDT Narrative CLINISYNC - 06/26/2024 5:10 PM EDT us Generic External Data Provider LAB BLOOD ORDERAB LES Final Result Performing Organization Address City/[facility]/ZIP Co de Phone Number [facility] * (ABNORMAL) METRO IRON AND TIBC (06/24/2024 11:34 AM EDT) [facility] IRON 63.0(L) 65.0 - 175.0 ug/dL [facility] TOTAL IRON BINDING CAPACITY 285.0 250.0 - 450.0 ug/dL [facility] PERCENT IRON SATURATION 22.1 % [facility] 06/24/2024 11:3 4 AM EDT 06/24/2024 11:36 AM EDT Narrative CLINISYNC - 06/24/2024 12:09 PM EDT Generic External Data Provider CLIN[facility]NC F inal Result Performing Organization Address [facility] de Phone Number CLIN[facility]NC [facility] * [facility] PTH, INTRAOPERATIVE (06/24/2024 11:34 AM EDT) PTH, INTACT 49 15 - 65 pg/mL [facility] Comment: Performed at: [address] [id number] Stock Pitcher: Capo Farah PhD, Phone: [phone] 06/24/2024 11:3 4 AM EDT 06/24/2024 11:36 AM EDT Narrative CLINISYNC - 06/25/2024 9:12 AM EDT Generic External Data Provider CLIN[facility]NC F inal Result Performing Organization Address [facility]/ZIP Co de Phone Number [facility] * [facility] FERRITIN (06/24/2024 11:34 AM EDT) FERRITIN 147.0 26.0 - 388.0 ng/mL [facility] 06/24/2024 11:3 4 AM EDT 06/24/2024 11:36 AM EDT Narrative CLINISYNC - 06/24/2024 12:47 PM EDT Generic External Data Provider CLINISYNC F inal Result CLINISYNC TB * (ABNORMAL) ALL URIC ACID (06/24/2024 11:34 AM EDT) URIC ACID 2.9(L) 3.5 - 7.2 mg/dL [facility] 06/24/2024 11:3 4 AM EDT 06/24/2024 11:36 AM EDT Narrative CLINISYNC - 06/24/2024 12:47 PM EDT Generic External Data Provider CLINISYNC F inal Result Performing Organization Address [facility] Co de Phone Number CLINISYNC TB * (ABNORMAL) ALL RENAL FUNCTION PANEL (06/24/2024 11:34 AM EDT) SODIUM 137 136 - 145 mmol/L [facility] POTASSIUM 4.2 3.5 - 5.1 mmol/L [facility] CHLORIDE 102 98 - 107 mmol/L [facility] CARBON DIOXIDE 28.4 21.0 - 32.0 mmol/L [facility] ANION GAP 10.8 [facility] GLUCOSE 193(H) 74 - 106 mg/dL [facility] BLOOD UREA NITROGEN 21.0(H) 7.0 - 18.0 mg/dL [facility] CREATININE 1.34(H) 0.70 - 1.30 mg/dL [facility] TB[facility] EGFR-AF ROMANIAN >60 >=60 mL/min/1.7 3m 2 TB[facility] TB[facility] EGFR-NON AF ROMANIAN 52(L) >=60 mL/min/1.7 3m 2 [facility] BUN CREATININE RATIO 15.7 TB[facility] CALCIUM 9.2 8.5 - 10.1 mg/dL [facility] PHOSPHORUS 3.9 2.6 - 4.7 mg/dL [facility] ALBUMIN LEVEL 3.3(L) 3.4 - 5.0 g/dL [facility] 06/24/2024 11:3 4 AM EDT 06/24/2024 11:36 AM EDT Narrative CLINISYNC - 06/24/2024 12:47 PM EDT Generic External Data Provider CLINISYNC F inal Result Performing Organization Address [facility] Co de Phone Number CLIN[facility]NC TB * ALL MAGNESIUM (06/24/2024 11:34 AM EDT) MAGNESIUM 1.8 1.8 - 2.4 mg/dL [facility] 06/24/2024 11:3 4 AM EDT 06/24/2024 11:36 AM EDT Narrative CLINISYNC - 06/24/2024 12:47 PM EDT Generic External Data Provider CLINISYNC F inal Result Performing Organization Address [facility] de Phone Number CLIN[facility]NC TB * ALL FOLIC ACID (06/24/2024 11:34 AM EDT) Pathologist [facility] FOLATE 21.40 8.60 - 58.90 ng/mL [facility] 06/24/2024 11:3 4 AM EDT 06/24/2024 11:36 AM EDT Narrative CLINISYNC - 06/24/2024 12:47 PM EDT Generic External Data Provider CLINISYNC F inal Result Performing Organization Address [facility] de Phone Number CLIN[facility]NC TB * (ABNORMAL) IMMUNOFIXATION, URINE (06/24/2024 11:10 AM EDT) IMMUNOFIXATION, URINE Comment(A) . 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 Performed at: [address] [id number] Stock Pitcher: Capo Farah PhD, Phone: [phone] 06/24/2024 11:1 0 AM EDT 06/24/2024 11:36 AM EDT Narrative AKSHATISYCA - 06/26/2024 5:10 PM EDT Generic External Data Provider LAB BLOOD ORDERAB LES Final Result Performing Organization Address [facility] de Phone Number [facility] * (ABNORMAL) ALL URINALYSIS (06/24/2024 11:10 AM EDT) COLOR URINE LT. YELLOW YELLOW [facility] CLARITY URINE CLOUDY(A) CLEAR [facility] SPECIFIC GRAVITY URINE >=1.030(A) 1.005 - 1.025 [facility] PH URINE 6.0 5.0 - 9.0 [facility] PROTEIN URINE >=300(A) NEG/TRACE mg/dL [facility] GLUCOSE URINE UA NEGATIVE NEGATIVE mg/dL [facility] BILIRUBIN URINE NEGATIVE NEGATIVE TBH KETONES URINE NEGATIVE NEGATIVE mg/dL [facility] BLOOD URINE NEGATIVE NEGATIVE TBH NITRITE URINE NEGATIVE NEGATIVE TBH UROBILINOGEN URINE 1.0 0.2 - 1.0 EU/dL [facility] LEUKOCYTE ESTERASE URINE TRACE(A) NEGATIVE [facility] 06/24/2024 11:1 0 AM EDT 06/24/2024 11:36 AM EDT Narrative AKSHATISYCA - 06/24/2024 11:52 AM EDT Generic External Data Provider CLINISYNC F inal Result Performing Organization Address [facility] de Phone Number [facility] * (ABNORMAL) Microalbumin / creatinine urine ratio (05/23/2022) CREATININE, RANDOM URINE 80 20 - 320 [facility] ALBUMIN, URINE 86.1 See Note: [facility] Comment: Reference Range: Reference Range Not established Results verified by repeat analysis on dilution. MICROALBUMIN/CREA TININE RATIO, RANDOM URINE 1,076(H) <30 [facility] Comment: The ADA defines abnormalities in albumin excretion as follows: Albuminuria Category Result (mcg/mg creatinine) Normal to Mildly increased <30 Moderately increased 30-299 Severely increased > OR = 300 The ADA recommends that at least two of three specimens collected within a 3-6 month period be abnormal before considering a patient to be within a diagnostic category. 05/23/2022 Chary Calloway MD LAB URINE ORDERABLES Final Resul t [facility] * Color Fundus Photography - OU - Both Eyes (03/27/2022 12:00 PM EST) Anatomical Region Laterality Modality Head Fundus Photograp hy 03/27/2022 12:0 0 PM EST Narrative 03/27/2022 12:00 PM EST [facility]FORMED AT [facility] LOCATION:[id number] [facility] Procedure Note CONVERSION, GENERIC - 08/30/2022 [facility]MED AT [facility] LOCATION:[id number] [facility] Chary Calloway MD OPHTH PHOTOGRAPHY Final Result * Colonoscopy (08/17/2020 12:00 PM EDT) Anatomical Region Laterality Modality Endoscopy 08/17/2020 12:0 0 PM EDT Narrative 08/17/2020 12:00 PM EDT [facility] LOCATION:[id number] Procedure Note CONVERSION, GENERIC - 08/30/2022 [facility]MED AT [facility] LOCATION:[id number] Chary Calloway MD ENDOSCOPY PROCEDURE ORDERABLES F inal Result from Last 3 Months or Most Recently Relevant to Health Maintenance Additional Health Concerns Active Problems Noted Date Diagnosed Date Patient on antidepressant monitoring plan 2022 Baseline PHQ-9 01/03/2023 Insurance [facility] MEDICARE ADVANTAGE MEDICARE Advance Directives Documents on File Type Date Recorded Patient Whipped Topping Mixer Expl anation Advance Directives and Living Will 12/12/2018 2018-11-28 living wi ll and healthcare POA Care Teams Electrical Test Technician Relationship Specialty Start Date End Date Chary Calloway MD [address] [place] [address] PCP - [employer] 04/16/17 Chary Calloway MD [address] [place] [address] PCP - General Family Medicine 09/04/22
--- OUTSIDE RECORDS SUMMARY | 2024-09-09 09:10 | XMS_ITS | Encounter Summary ---
Author Organization [employer] Address [facility][id number] [address] [place] [address] Care Team Providers Care Air Hammer Operator Name Role Phone Chary Calloway MD Primary Care Provider [phone] Encounter Details Date Type Department Care Team (Late st Contact Info) Description 07/25/2022 Telephone [facility] [address] [place] [phone] Roe Harrison MD [address] [place] [phone] Social History Tobacco Use Types Packs/Day Years Used Date Smoking Tobacco: Every Day Cigarettes Smokeless Tobacco: Never Comments:and cigars occassio nal Alcohol Use Standard Drinks/Week Comments Not Currently 0 (1 standard drink = 0.6 oz pur e alcohol) Social Connection and Isolat ion Panel [NHANES] Answer Date Recorded In a typical week, how many times do you talk on the phone with family, friends, or neighbors? More than three times a week 11/01/2020 How often do you get togethe r with friends or relatives? Twice a week 11/01/2020 How often do you attend chur ch or advent services? Never 11/01/2020 Do you belong to any clubs o r organizations such as holiness groups, unions, fraternal or athletic groups, or [...] Recorded Do you need help finding a [facility] career center and/or a training program? No 11/01/2020 Hunger Screening Answer Date Recorded Within the past 12 months we worried whether our food would run out before we got money to buy more. Never True 06/21/2022 Within the past 12 months th e food we bought just didn't last and we didn't have money to get more. Never True 06/21/2022 Purpose - Life Answer Date Recorded Purpose [...] have Coronavirus / COVID-19? No / Unsure 07/25/2022 7:23 AM EDT documented as of this encounter Miscellaneous Notes * Telephone Encounter - Roe Harrison MD - 07/25/2022 8:50 AM EDT Please schedule him for follow-up 6 months documented in this encounter Plan of Treatment Upcoming Encounters Date Type Department Care Team (Latest Contact Info) Description 09/09/2024 12:00 PM EDT Office Visit [facility] [address] [place] [address] [place] [phone] Roe Harrison MD [address] [place] [address] 09/18/2024 9:30 AM EDT Hospital Encounter [facility] - Cardiac Cath [address] [place] [address] Aron Ruvalcaba MD [address] [place] [address] Renal artery stenosis 09/18/2024 9:30 AM EDT - 09/18/2024 10:30 AM EDT Surgery [facility] - Cardiac Cath [address] [place] [address] Aron Ruvalcaba MD [address] [place] [address] Vascular Invasive- bilateral renal artery angiogram with possible intervention 09/30/2024 9:00 AM EDT Office Visit [facility] [address] [place] [address] Mona Carroll PA-C [address] [place] [address] 2024 10:00 AM EDT Appointment [facility] - CT Imaging [address] [place] [phone] Phillip Flores MD [address] [facility] [address] [place] [address] 10/31/2024 3:15 PM EDT Office Visit [facility] - Medical Oncology [address] [place] [phone] Phillip Flores MD [address] [facility] [address] [place] [address] 02/17/2025 1:15 PM EST Office Visit [facility] [address] [place] [address] [place] [phone] Roe Harrison MD [address] [place] [address] documented as of this encounter Visit Diagnoses Not on filedocumented in this encounter Additional Health Concerns Infection Onset Date Last Indicated Resolved Time Enteric Rule-Out 04/24/2024 04/24/2024 04/25/2024 2:05 PM EST Assessment Noted Time PHQ-9 Depression Total Score: 0 04/24/19 20 8:56 AM EST documented as of this encounter Care Teams Air Hammer Operator Relationship Specialty Start Date End Date Chary Calloway MD [address] [place], [place] [phone] PCP - General Family Medicine 04/10/24 documented as of this encounter
--- OUTSIDE RECORDS SUMMARY | 2024-09-09 09:10 | XMS_ITS | Encounter Summary ---
Author Organization [employer] Address [id number] [address] [place] [address] Care Team Providers Care Core Piler Name Role Phone Chary Calloway MD Primary Care Provider [phone] Encounter Details Date Type Department Care Team (Late st Contact Info) Description 02/02/2022 Telephone [facility] [address] [place] [address] Daphnie Prakash CMA Social History Tobacco Use Types Packs/Day Years [...] often do you attend chur ch or sikh services? Never 11/01/2020 Do you belong to any clubs o r organizations such as restorationist groups, unions, fraternal or athletic groups, or [...] Recorded Do you need help finding a [facility] career center and/or a training program? [...] have Coronavirus / COVID-19? No / Unsure 01/31/2022 1:01 PM EDT documented as of this encounter Miscellaneous Notes * Telephone Encounter - Daphnie Prakash CMA - 02/02/2022 12:45 PM EDT Pt PCP office called and Dr. Calloway would like to talk to you about Joe psa levels so you can get an understanding for treatment or what to do next from here. * Telephone Encounter - Tosin Douglas CMA - 02/02/2022 12:45 PM EDT Nick from care mngt team from Dr Calloway's office called. She states she spoke to Daphnie today and she received the last ov note. But she says his new PSA hadnt been seen by you and wanted you to knowwhat it was and what you were going to do moving forward. His PSA was 8.06 drawn on 01/30/22. * Telephone Encounter - Roe Harrison MD - 02/02/2022 12:45 PM EDT Thanks for letting me know. Can you let him know that I would suggest we recheck it in 6 months. Heshould get an appt documented in this encounter Plan of Treatment Upcoming Encounters Date Type Department Care Team (Latest Contact Info) Description 09/09/2024 12:00 PM EDT [facility] [address] [place] [address] [place] [address] Roe Harrison MD [address] [place] [address] 09/18/2024 9:30 AM EDT Hospital Encounter [facility] - Cardiac Cath [address] [place] [phone] Aron Ruvalcaba MD [address] [place] [address] Renal artery stenosis 09/18/2024 9:30 AM EDT - 09/18/2024 10:30 AM EDT Surgery [facility] - Cardiac Cath [address] [place] [phone] Aron Ruvalcaba MD [address] [place] [address] Vascular Invasive- bilateral renal artery angiogram with possible intervention 09/30/2024 9:00 AM EDT Office Visit [facility] [address] [place] [address] Mona Carroll, PA-C [address] [place] [address] 2024 10:00 AM EDT Appointment [facility] - CT Imaging [address] [place] [phone] Phillip Flores MD [address] [facility] [address] [place] [address] 10/31/2024 3:15 PM EDT Office Visit [facility] - Medical Oncology [address] [place] [phone] Phillip Flores MD [address] [facility] [address] [place] [phone] 02/17/2025 1:15 PM EST Office Visit [facility] [address] [place] [address] [place] [phone] Roe Harrison MD [address] [place] [address] documented as of this encounter Visit Diagnoses Not on filedocumented in this encounter Additional Health Concerns Infection Onset Date Last Indicated Resolved Time Enteric Rule-Out 04/24/2024 04/24/2024 04/25/2024 2:05 PM EST Assessment Noted Time PHQ-9 Depression Total Score: 0 04/24/19 20 8:56 AM EST documented as of this encounter Care Teams Core Piler Relationship Specialty Start Date End Date Chary Calloway MD [address] [place] [address] PCP - General Family Medicine 04/10/24 documented as of this encounter
--- OUTSIDE RECORDS SUMMARY | 2024-09-09 09:10 | XMS_ITS | Encounter Summary ---
Author Organization [facility] Address [id number] [address] [place] [address] Care Team Providers Care Buckle Inspector Name Role Phone Chary Calloway MD Primary Care Provider [phone] Encounter Details Date Type Department Care Team (Late st Contact Info) Description 02/02/2022 Orders Only [facility] [address] [place] [phone] Tosin Douglas CMA Elevated PSA Social History Tobacco Use Types [...] often do you attend chur ch or zoroastrianism services? Never 11/01/2020 Do you belong to any clubs o r organizations such as temple groups, unions, fraternal or athletic groups, or [...] Recorded Do you need help finding a [employer] career center and/or a training program? No [...] Visit [facility] [address] [place] [address] [place] [address] [place] [address] [place] [address] 09/18/2024 9:30 AM EDT Hospital Encounter [facility] - Cardiac Cath [address] [place] [address] Aron Ruvalcaba MD [address] [place] [address] Renal artery stenosis 09/18/2024 9:30 AM EDT - 09/18/2024 10:30 AM EDT Surgery [facility] - Cardiac Cath [address] [place] [address] Aron Ruvalcaba MD [address] [place] [address] Vascular Invasive- bilateral renal artery angiogram with possible intervention 09/30/2024 9:00 AM EDT Office Visit [facility] [address] [place] [address] Mona Carroll, PA-C [address] [place] [address] 2024 10:00 AM EDT Appointment [facility] - CT Imaging [address] [place] [phone] Phillip Flores MD [address] [place] [address] 10/31/2024 3:15 PM EDT Office Visit [facility] - Medical Oncology [address] [place] [phone] Phillip Flores MD [address] [place] [address] 02/17/2025 1:15 PM EST Office Visit [facility] [address] [place] [place] [address] Roe Harrison MD [address] [place] [address] documented as of this encounter Procedures Procedure Name Priority Date/Time Associated Diagnosis Comments PROSTATIC SPECIFIC ANTIGEN, DIAGNOSTIC Routine 01/30/2022 Elevated PSA documented in this encounter Results * Prostatic specific antigen, diagnostic (01/30/2022) Psa 8.06 SUNQUEST 01/30/2022 us Roe Harrison MD LAB BLOOD ORDERABLES Edite d Result - Final SUNQUEST documented in this encounter Visit Diagnoses Diagnosis Elevated PSA [...] documented as of this encounter Care Teams Buckle Inspector Relationship Specialty Start Date End Date Chary Calloway MD [address] [place] [address] PCP - General Family Medicine 04/10/24 documented as of this encounter
--- OUTSIDE RECORDS SUMMARY | 2024-09-09 09:10 | XMS_ITS | Encounter Summary ---
Author Organization [facility] Address [address] [facility] [place] [address] Care Team Providers Care Flight Coordinator Name Role Phone Chary Calloway MD Unavailable Chary Calloway MD Primary Care Provider [phone] Encounter Details Date Type Department Care Team (Late Contact Info) Description 09/01/2024 Patient Outreach [facility] [address] [place] [phone] Nick Maravilla LPN [address] [place] [address] Social History Tobacco Use Types Packs/Day Years Used Date Smoking Tobacco: Former Cigarettes 1 - 02/2023 Smokeless Tobacco: Never Comments:1-9 cigs/ [...] Office Visit [facility] [address] [facility] [address] [place] [address] Jake Lainez MD [address] [facility] [address] [place] [address] 10/03/2024 11:00 AM EDT Office Visit [facility] [address] [place] [address] Ruby Arteaga MD [address] [place] [address] 11/12/2024 10:40 AM EDT Office Visit [facility] [address] [facility] [place] [phone] Chary Calloway MD [address] [place], [place] [phone] 08/26/2025 1:05 PM EDT Office Visit [facility] [address] [place] [address] Ruby Arteaga MD [address] [place] [address] documented as of this encounter Goals Goal Patient Goal Type Associated Problems Recent Progress Patient-Stated? Author Help patient manage antidepressant medication Care Plan Patient on antidepressant monitoring plan No Chary Calloway MD Baseline PHQ-9 Care Plan Baseline PHQ-9 No Chary Calloway MD documented as of this encounter Visit Diagnoses Diagnosis Essential hypertension (CMS/HCC)- Primary Unspecified essential hypertension Mixed hyperlipidemia (CMS/HCC) Mixed hyperlipidemia documented in this encounter Additional Health Concerns Active Problems Noted Date Diagnosed Date Patient on antidepressant monitoring plan 2022 Baseline PHQ-9 01/03/2023 Assessment Noted Time PHQ-9 Depression Total Score: 0 04/19/19 24 1:00 PM EST documented as of this encounter Care Teams Flight Coordinator Relationship Specialty Start Date End Date Chary Calloway MD [address] [place], [place] [phone] PCP - [employer] 04/16/17 Chary Calloway MD [address] [place] [address] PCP - General Family Medicine 09/04/22 documented as of this encounter
--- OUTSIDE RECORDS SUMMARY | 2024-09-09 09:10 | XMS_ITS | Encounter Summary ---
Author Organization [facility] Address [address] [place] [address] Care Team Providers Care Food And Nutrition Teacher Name Role Phone Chary Calloway MD Unavailable Chary Calloway MD Primary Care Provider [phone] Encounter Details Date Type Department Care Team (Late st Contact Info) Description 06/08/2023 Clinisync Result Encounter [facility] External Department Unsolicited Provider, Generic External Data Social History Tobacco Use Types Packs/Day Years Used Date Smoking Tobacco: Former Cigarettes 1 02/2023 Smokeless Tobacco: Never Comments:1-9 cigs/ day [...] [facility] [address] [facility] [address] [place] [address] Jake Lainez MD [address] [facility] [address] [place] [address] 10/03/2024 11:00 AM EDT Office Visit [facility] [address] [place] [phone] Ruby rAteaga MD [address] [place] [address] 11/12/2024 10:40 AM EDT Office Visit [facility] [address] [place] [address] Chary Calloway MD [address] [place], [place] [phone] 08/26/2025 1:05 PM EDT Office Visit [facility] [address] [place] [phone] Ruby Arteaga MD [address] [place] [address] documented as of this encounter Goals Goal Patient Goal Type Associated Problems Recent Progress Patient-Stated? Author Help patient manage antidepressant medication Care Plan Patient on antidepressant monitoring plan No Chary Calloway MD Baseline PHQ-9 Care Plan Baseline PHQ-9 No Chary Calloway MD documented as of this encounter Procedures Procedure Name Priority Date/Time Associated Diagnosis Comments CTA ABD/PELV WO/W IVCON 06/08/2023 2:45 PM EST documented in this encounter Results * CTA ABD/PELV WO/W IVCON (06/08/2023 2:45 PM EST) Anatomical Region Laterality Modality Other 06/08/2023 2:45 PM EST Narrative 06/10/2023 1:29 PM EST * * *Final Report* * * DATE OF EXAM: Jun 08 2023 2:45PM [facility] 0467 - CTA ABD/PELV WO/W IVCON / PROCEDURE REASON: Chronic mesenteric ischemia (HCC) * * * * Physician Interpretation * * * * CT ANGIOGRAPHY OF THE ABDOMEN AND PELVIS CT Dose-Length Product (DLP): 996 mGy*cm CT Dose Reduction Employed: mAs-kVp adjusted based on patient size-age CLINICAL HISTORY: Chronic mesenteric ischemia COMPARISON: CTA abdomen and pelvis 11/08/2022 TECHNIQUE: Contrast-enhanced CT angiography imaging of the abdomen and pelvis were obtained with the addition of coronal and sagittal reformatted images. 3D maximum intensity projection images were created, reviewed and archived. The images were reviewed on an independent workstation by the radiologist prior to interpretation. FINDINGS: VASCULAR AORTA AND MAIN BRANCHES: Again demonstrated is stenting of the celiac and SMA. The celiac stent is occluded, with high-grade stenosis there is proximal and. This is similar in appearance to prior exam. There is mild stenosis at the mid portion of the SMA stent, which otherwise remains patent. The main branches of the celiac artery remain patent due to retrograde flow from the pancreaticoduodenal arcade, which provides perfusion from the SMA. The visible main branches of the SMA remain patent. There is chronic atherosclerotic and nonatherosclerotic plaque within the infrarenal aorta, causing moderate stenosis along with a grossly unchanged bfh-xllb-lnkfzvdm dissection flap. The single bilateral renal arteries are diseased, with mild to moderate stenosis at the origin on the right. Both arteries otherwise remains patent. RIGHT HEMIPELVIS/LOWER EXTREMITY: The stented common iliac artery and external iliac artery remain patent. 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 Moderate stenosis of the common femoral artery due to intraluminal plaque is unchanged. 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 The aneurysm sac remains thrombosed. The internal and external iliac arteries are diseased, however, patent. Focal high-grade stenosis of the common femoral artery is unchanged. LOWER CHEST: No significant abnormality. HEPATOBILIARY: The liver is normal in arterial enhancement with no hyperenhancing mass. The gallbladder is either decompressed or absent. No extrahepatic biliary ductal dilatation. SPLEEN, PANCREAS, ADRENAL GLANDS: Scattered calcified granuloma are present throughout the spleen. Nodularity of the bilateral adrenal glands is unchanged. The pancreas is normal in arterial enhancement. KIDNEYS, URETERS, BLADDER: Normal and symmetric corticomedullary enhancement with no hydronephrosis. The ureters and trabeculated bladder are grossly unremarkable when allowing for arterial phase imaging. PROSTATE, SEMINAL VESICLES: The prostate is enlarged. The seminal vesicles are symmetric. BOWEL: Scattered diverticula are present throughout the sigmoid colon. No evidence of obstruction. Small hiatal hernia. PERITONEAL/EXTRAPERITONEAL SPACE: No free air or free fluid. Nonspecific haziness of the mesentery within the right lower quadrant is grossly unchanged from one year prior. LYMPHOPROLIFERATIVE: No adenopathy. ABDOMINAL WALL: Free of hernias. MUSCULOSKELETAL: No acute osseous abnormality. IMPRESSION: 1. Mild stenosis of the mid SMA stent. The stented SMA otherwise remains patent as do its visible major branches. 2. 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 The main branches of the celiac artery remain patent due to collateral flow from the pancreaticoduodenal arcade. 3. Grossly unchanged appearance of the moderate stenosis of the infrarenal aorta secondary to atherosclerotic and nonatherosclerotic plaque. A chronic, oyl-wfhd-adyykksf dissection flap is also unchanged. 4. Patent common and external iliac artery stent on the RIGHT. 5. 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 Parenting Skills Instructor: [facility] Transcribe Date/Time: Jun 10 2023 1:04P Dictated by : JB FONTANA MD This examination was interpreted and the report reviewed and electronically signed by: JB FONTANA MD on Jun 10 2023 1:27PM EST [id number] Procedure Note Radiology, RadiologistMD - 06/10/2023 * * *Final Report* * * DATE OF EXAM: Jun 08 2023 2:45PM [facility] 0467 - CTA ABD/PELV WO/W IVCON / PROCEDURE REASON: Chronic mesenteric ischemia (HCC) * * * * Physician Interpretation * * * * CT ANGIOGRAPHY OF THE ABDOMEN AND PELVIS CT Dose-Length Product (DLP): 996 mGy*cm CT Dose Reduction Employed: mAs-kVp adjusted based on patient size-age CLINICAL HISTORY: Chronic mesenteric ischemia COMPARISON: CTA abdomen and pelvis 11/08/2022 TECHNIQUE: Contrast-enhanced CT angiography imaging of the abdomen and pelvis were obtained with the addition of coronal and sagittal reformatted images. 3D maximum intensity projection images were created, reviewed and archived. The images were reviewed on an independent workstation by the radiologist prior to interpretation. FINDINGS: VASCULAR AORTA AND MAIN BRANCHES: Again demonstrated is stenting of the celiac and SMA. The celiac stent is occluded, with high-grade stenosis there is proximal and. This is similar in appearance to prior exam. There is mild stenosis at the mid portion of the SMA stent, which otherwise remains patent. The main branches of the celiac artery remain patent due to retrograde flow from the pancreaticoduodenal arcade, which provides perfusion from the SMA. The visible main branches of the SMA remain patent. There is chronic atherosclerotic and nonatherosclerotic plaque within the infrarenal aorta, causing moderate stenosis along with a grossly unchanged aeh-zcmq-cgetrhwz dissection flap. The single bilateral renal arteries are diseased, with mild to moderate stenosis at the origin on the right. Both arteries otherwise remains patent. RIGHT HEMIPELVIS/LOWER EXTREMITY: The stented common iliac artery and external iliac artery remain patent. 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 Moderate stenosis of the common femoral artery due to intraluminal plaque is unchanged. 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 The aneurysm sac remains thrombosed. The internal and external iliac arteries are diseased, however, patent. Focal high-grade stenosis of the common femoral artery is unchanged. LOWER CHEST: No significant abnormality. HEPATOBILIARY: The liver is normal in arterial enhancement with no hyperenhancing mass. The gallbladder is either decompressed or absent. No extrahepatic biliary ductal dilatation. SPLEEN, PANCREAS, ADRENAL GLANDS: Scattered calcified granuloma are present throughout the spleen. Nodularity of the bilateral adrenal glands is unchanged. The pancreas is normal in arterial enhancement. KIDNEYS, URETERS, BLADDER: Normal and symmetric corticomedullary enhancement with no hydronephrosis. The ureters and trabeculated bladder are grossly unremarkable when allowing for arterial phase imaging. PROSTATE, SEMINAL VESICLES: The prostate is enlarged. The seminal vesicles are symmetric. BOWEL: Scattered diverticula are present throughout the sigmoid colon. No evidence of obstruction. Small hiatal hernia. PERITONEAL/EXTRAPERITONEAL SPACE: No free air or free fluid. Nonspecific haziness of the mesentery within the right lower quadrant is grossly unchanged from one year prior. LYMPHOPROLIFERATIVE: No adenopathy. ABDOMINAL WALL: Free of hernias. MUSCULOSKELETAL: No acute osseous abnormality. IMPRESSION: 1. Mild stenosis of the mid SMA stent. The stented SMA otherwise remains patent as do its visible major branches. 2. 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 The main branches of the celiac artery remain patent due to collateral flow from the pancreaticoduodenal arcade. 3. Grossly unchanged appearance of the moderate stenosis of the infrarenal aorta secondary to atherosclerotic and nonatherosclerotic plaque. A chronic, cnl-hsnf-bqvovrvu dissection flap is also unchanged. 4. Patent common and external iliac artery stent on the RIGHT. 5. 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 Parenting Skills Instructor: [facility] Transcribe Date/Time: Jun 10 2023 1:04P Dictated by : JB FONTANA MD This examination was interpreted and the report reviewed and electronically signed by: JB FONTANA MD on Jun 10 2023 1:27PM EST [id number] Generic External Data Provider [facility] Final Result documented in this encounter Visit Diagnoses Not on filedocumented in this encounter Additional Health Concerns Active Problems Noted Date Diagnosed Date Patient on antidepressant monitoring plan 2022 Baseline PHQ-9 01/03/2023 Assessment Noted Time PHQ-9 Depression Total Score: 0 04/19/19 24 1:00 PM EST documented as of this encounter Care Teams Food And Nutrition Teacher Relationship Specialty Start Date End Date Chary Calloway MD [address] [place] [address] PCP - [employer] 04/16/17 Chary Calloway MD [address] [place] [address] PCP - General Family Medicine 09/04/22 documented as of this encounter
[2024-09-09 09:43] LABS: Hemoglobin 12.9 g/dL (14.0-18.0); Mean Corpuscular HGB Conc 33.1 g/dL (29.9-35.2); Mean Corpuscular Hemoglobin 28.9 pg (25.9-34.0); Mean Corpuscular Volume 87.2 fL (80.0-94.0); Mean Platelet Volume 11.3 fL (9.5-13.5); Platelet Count 280 10^3/uL (150-450); Red Blood Count 4.47 10^6/uL (4.70-6.10); Red Cell Distribution Width 14.5 % (11.0-15.0); White Blood Count 8.9 10^3/uL (4.0-11.0)
[2024-09-09 09:46] LABS: Bilirubin Urine NEGATIVE (NEGATIVE); Blood Urine TRACE-I (NEGATIVE); Clarity Urine CLEAR (CLEAR); Color Urine YELLOW (YELLOW); Glucose Urine UA >=1000 mg/dL (NEGATIVE); Ketones Urine TRACE mg/dL (NEGATIVE); Leukocyte Esterase Urine NEGATIVE (NEGATIVE); Nitrite Urine POSITIVE (NEGATIVE); Protein Urine >=300 mg/dL (NEG/TRACE); Specific Gravity Urine >=1.030 (1.005-1.025)
[2024-09-09 09:56] LABS: INR 1.04; Partial Thromboplastin Time 26.5 sec (22.3-36.2)
[2024-09-09 10:00] LABS: Protein Creatinine Ratio Urine 4.22
[2024-09-09 10:01] LABS: Albumin Level 2.9 g/dL (3.4-5.0); BUN Creatinine Ratio 16.9; Calcium 8.8 mg/dL (8.5-10.1); Carbon Dioxide 28.3 mmol/L (21.0-32.0); Chloride 103 mmol/L (98-107); Estimated GFR (African America >60 (>=60 mL/min/1.73m^2); Estimated GFR (Non-African Ame 51 (>=60 mL/min/1.73m^2); Glucose 269 mg/dL (74-106); Magnesium 1.8 mg/dL (1.8-2.4); Phosphorus 3.8 mg/dL (2.6-4.7); Potassium 4.3 mmol/L (3.5-5.1); Sodium 140 mmol/L (136-145); Uric Acid 2.6 mg/dL (3.5-7.2)
[2024-09-09 11:22] LABS: Percent Iron Saturation 60.3 %
[2024-09-10 04:07] LABS: Vitamin B12 >2000 pg/mL (232-1245)
[2024-09-10 11:08] LABS: PTH, Intact 48 pg/mL (15-65)
== END 2024-09-09 09:03 | disposition home or self-care (01) ==
LOC: LAB 09:06
PROVIDERS: PCP Family Medicine; Visit Provider Internal Medicine Nephrology
DX: D47.2 Monoclonal gammopathy (principal); D64.9 Anemia, unspecified; I12.9 Hypertensive chronic kidney disease with stage 1 through stage 4 chronic kidney disease, or unspecified chronic kidney disease; R80.1 Persistent proteinuria, unspecified; N18.2 Chronic kidney disease, stage 2 (mild); E11.21 Type 2 diabetes mellitus with diabetic nephropathy
CPT/HCPCS: 36415; 80069; 81003; 82570; 82607; 82728; 82746; 83540; 83550; 83735; 83970; 84156; 84550; 85027; 85610; 85730